=== PATIENT | female | born 1975 | race African-American/Black ===

== ENCOUNTER 2016-11-13 05:25 | Day surgery (SDC) | payer MEDICARE, MEDICAID ==
[2016-11-11 12:10] LABS: BASOPHILS 0.2 % (0.0-2.0); EOSINOPHILS 1.5 % (0-7); HEMATOCRIT 32.2 % (36.0-48.0); HEMOGLOBIN 9.9 g/dL (12-16); IMMATURE GRANULOCYTES 0.2 % (0-5); LYMPHOCYTES 36.2 % (15-50); MCH 22.4 pg (26.0-34.0); MCHC 30.7 g/dL (31.0-37.0); MCV 72.9 fL (80.0-100.0); MEAN PLATELET VOLUME 9.9 fL (7.4-10.4); MONOCYTES 7.5 % (2-11); NEUTROPHILS 54.4 % (40-80); PLATELET COUNT 280 10x3/uL (130-400); RBC 4.42 10x6/uL (4.00-5.40); RDW 14.2 % (11.5-14.5); WBC 6.6 10x3/uL (4.8-10.8)
[2016-11-11 12:29] LABS: CALC OSMOLALITY 283 mosm/kg (275-300); CALCIUM 9.2 mg/dL (8.5-10.1); CARBON DIOXIDE 32.3 mmol/L (21.0-32.0); CHLORIDE - SERUM 105 mmol/L (98-107); CREATININE - SERUM 0.8 mg/dL (0.6-1.3); POTASSIUM - SERUM 3.6 mmol/L (3.5-5.1); SODIUM 143 mmol/L (136-145); UREA NITROGEN 11 mg/dL (7-18); eGFR NON AFRICAN AMERICAN 84 mL/min (90-120)
[2016-11-11 12:36] LABS: GLUCOSE 106 mg/dL (74-106)
[~2016-11-13] VITALS: Ht 167.6 cm; Wt 96.6 kg
[~2016-11-13 05:25] MED LIST: AMOXICILLIN500 M1 PO; ASPIRIN325 MG PO; BRILINTA90 MG PO; COREG12.5 MG PO; COZAAR50 MG PO; LANTUS SOL100 UNIT/1 SQ; LISINOPRIL5 MG PO; PERCOCET 7.5/321 TA1 PO; PRILOSEC20 MG PO
[2016-11-13] MEDS ORDERED: AMBIEN10 MG PO (09:03)
[2016-11-13] MEDS ORDERED: ZESTRIL40 MG PO (09:04)
--- NOTE | 2016-11-13 09:07 | HP ---
PATIENT: AFUA SMITH MEDICAL RECORD: [id number] ACCOUNT: [id number] [facility]ATION:[facility] : 75 ADMISSION DATE: 11/13/16 HISTORY AND PHYSICAL EXAMINATION HISTORY OF PRESENT ILLNESS: This patient is a 41-year-old 5, para 4, AB 1 white female, who desires endometrial ablation to treat her severe menorrhagia. MEDICAL HISTORY: The patient denies heart disease. Positive for diabetes, heavy vaginal bleeding FAMILY HISTORY: Noncontributory. REVIEW OF SYSTEMS: Review of systems is unremarkable other than the vaginal bleeding. PHYSICAL EXAMINATION: GENERAL: Well-developed, well-nourished female in no distress. VITAL SIGNS: Weight 213 pounds, blood pressure 130/90. HEENT: Unremarkable. LUNGS: Clear. HEART: Regular rate and rhythm. ABDOMEN: Soft and nontender. PELVIC: Deferred for anesthesia. EXTREMITIES: No cyanosis, clubbing or edema. NEUROLOGIC: Grossly intact. She has undergone an endometrial biopsy with benign results and a negative Pap smear. IMPRESSIONS: Abnormal uterine bleeding, desires ablation. PLAN: Endometrial ablation. Discussed potential risks of anesthesia, infection, uterine perforation and damage to nearby organs. Answered all her questions. IMAGING: Ultrasound reveals a uterus of 7.8 cm x 10.8 cm retroverted, normal appearing ovaries. TRANSINT:[id number] Voice Confirmation ID: [id number] DOCUMENT ID: [id number] ANTONIO MUÑOZ MD at 0907 CC: [id number] DICTATION DATE: 11/11/16 1630 PANTOGRAPHER: 11/11/16 1929 [facility] [address] [id number]
[2016-11-13 09:12] VITALS: BP 175/97; Ht 167.6 cm; Wt 96.6 kg
[2016-11-13 09:25] LABS: HCG URINE NEGATIVE (NEGATIVE)
--- NOTE | 2016-11-13 11:37 | NUR ---
THE PATIENT REQUESTS NEED TO URINATE AND BED GILL OFFERED. THE PATIENT REQUESTED A QUICK RECOVERY STAY SO SHE COULD RETURN TO HER ROOM TO USE THE RESTROOM
--- NOTE | 2016-11-13 14:25 | NUR ---
1425--PT VOIDS WITHOUT DIFFICULTY, IV GORDON'Teresa DU RN
--- NOTE | 2016-11-13 14:29 | NUR ---
1430--DISCHARGE INSTRUCTIONS GIVEN, PT VERBALIZES UNDERSTANDING. PT OFF UNIT VIA BRIAN. ANA LAURA MICHAUD
--- NOTE | 2016-11-20 07:19 | OP ---
PATIENT NAME: AFUA SMITH MEDICAL RECORD: [id number] :75 [facility] DATE: SURGEON: LEA MUÑOZ MD DATE OF OPERATION: 11/13/2016 PREOPERATIVE DIAGNOSIS: Menorrhagia. POSTOPERATIVE DIAGNOSIS: Menorrhagia. PROCEDURES: Examination under anesthesia, cervical dilatation, hysteroscopy, endometrial biopsies, and NovaSure endometrial ablation. SURGEON: Lea Muñoz MD. ANESTHESIA: General. FINDINGS: An elongated cervix with benign-appearing endometrium. ESTIMATED BLOOD LOSS: Minimal. COMPLICATIONS OF SURGERY: None. OPERATIVE NOTE: The patient was taken to the OR and under adequate general anesthesia, prepped and draped in the usual manner for vaginal procedures. The anterior lip of the cervix was grasped with tenaculum. The endometrial cavity was then evaluated, was sounded to approximately 8 cm and subsequently dilatation was begun, achieved a 6 dilator, but was unable to comfortably insert the larger dilators. At that time, a hysteroscope was inserted. The findings were a markedly elongated cervix and a visible endometrium beyond the top of the cervical entrance. Hysteroscope revealed that the endometrial cavity was higher in the pelvis than originally evaluated. The hysteroscope was removed and dilatation continued without difficulty and NovaSure endometrial ablation was carried out without complication or difficulty. At the end of procedure, all instruments were removed. Specimen included endometrial biopsies taken with the hysteroscope, there was no bleeding. The patient went to the recovery area in good condition. TRANSINT:[id number] Voice Confirmation ID: [id number] DOCUMENT ID: [id number] LEA MUÑOZ MD at 0719 CC: [id number] DICTATION DATE: 11/13/16 1134 DEHAIRER: 11/13/161918 [facility] 11/13/16 [facility] [address] [place] [address]
== END 2016-11-13 13:45 | disposition home or self-care (01) ==
LOC: D.OPS 05:25 → D.PAN 10:00 → D.OPS 11:15
PROVIDERS: Obstetrics & Gynecology
DX: N92.0 Excessive and frequent menstruation with regular cycle (principal); N85.01 Benign endometrial hyperplasia

== ENCOUNTER 2016-11-18 06:59 | Day surgery (SDC) | payer MEDICARE, MEDICAID ==
[2016-11-15 09:52] LABS: HEMATOCRIT 31.2 % (36.0-48.0); HEMOGLOBIN 9.5 g/dL (12-16); MCHC 30.4 g/dL (31.0-37.0); MCV 72.4 fL (80.0-100.0); MEAN PLATELET VOLUME 10.1 fL (7.4-10.4); RBC 4.31 10x6/uL (4.00-5.40); WBC 6.8 10x3/uL (4.8-10.8)
[2016-11-15 10:01] LABS: ANION GAP 10.1 mmol/L (8-16); CALCIUM 8.3 mg/dL (8.5-10.1); CARBON DIOXIDE 30.4 mmol/L (21.0-32.0); CREATININE - SERUM 0.9 mg/dL (0.6-1.3); POTASSIUM - SERUM 3.5 mmol/L (3.5-5.1)
[~2016-11-18] VITALS: Ht 167.6 cm; Wt 97.1 kg
[~2016-11-18 06:59] MED LIST changes: +AMBIEN10 MG PO; +ZESTRIL40 MG PO
[2016-11-18] MEDS ORDERED: TRULICITY1.5 MG/0.5 SC (09:20)
[2016-11-18] MEDS ORDERED: KLONOPIN1 MG PO (09:21)
[2016-11-18] MEDS ORDERED: NEURONTIN 300300 MG (09:22)
[2016-11-18] MEDS ORDERED: NORCO 7.5/325 T1 TA1 PO (09:22)
[2016-11-18 09:26] VITALS: BP 154/93; Ht 167.6 cm; Wt 97.1 kg
--- NOTE | 2016-11-18 10:01 | NUR ---
IV ACCESS-20 GAUGE INSERTED IN LEFT AC FOR ACCESS. IVY BOO RN
[2016-11-18] MEDS ORDERED: HYDROCODONE-APA1 TAB PO (11:54)
--- NOTE | 2016-11-18 13:47 | NUR ---
1315 1 NORCO 10/325MG PO FOR COMPLAINTS OF PAIN 03/10 TO LEFT KNEE. Jarad KWAN R.N.
--- NOTE | 2016-11-18 15:04 | NUR ---
1420 DRESSED GIVEN DISCHARGE INFORMATION PACKET INCLUDING: MED REC, RX:NORCO, COMPUTER PRINTOUT FOR DISCHARGE INSTRUCTIONS FOR ARTHROSCOPY FO THE KNEE, DR. ZARATE'S POST OP INSTRUCTIONS FOR ARTHROSCOPY OF THE KNEE, EXERCISE SHEET, OP D/C INSTRUCTIONS, & RTC APPT. PT VOICED UNDERSTANDING. TO PRIVATE CAR PER WHEELCHAIR BY Dutch BOATENG R.N.. HOME WITH SON.
--- NOTE | 2016-11-18 18:57 | OP ---
PATIENT NAME: AFUA SMITH MEDICAL RECORD: [id number] :75 LOCATION:D.[facility] ADMISSION DATE: SURGEON: ANDI ZARATE MD DATE OF OPERATION: 11/18/2016 Orthopedic Surgery Operative Note PREOPERATIVE DIAGNOSIS: Loose body of the left knee. POSTOPERATIVE DIAGNOSES: Medial meniscus tear, plus patellar chondromalacia. PROCEDURE: 1. Arthroscopic partial medial meniscectomy. 2. Arthroscopic chondroplasty of the patella. SURGEON: Andi Zarate MD. ANESTHESIA: General. INTRAOPERATIVE COMPLICATIONS: None. SUMMARY OF PATHOLOGIC FINDINGS: No loose body was found corresponding to the MRI. She did have an undersurface tear of the medial meniscus as well as chondromalacia of the apex of the patella. OPERATIVE SUMMARY IN DETAIL: After obtaining the appropriate preoperative orthopedic surgery consent as well as anesthetic consultation, evaluation and clearance, the patient was brought to the operating room and placed on the operating table in supine position. After adequate general laryngeal mask was administered, tourniquet was placed about the proximal aspect of left lower extremity. Left lower extremity was then prepped and draped in routine sterile fashion. I exsanguinated and tourniquet inflated to 350 mmHg. Routine inferolateral portal was established followed by superomedial portal and inferomedial portal. Diagnostic arthroscopy revealed the above findings. Combination of resector as well as meniscotome was utilized to debride the meniscus back to stable meniscal elements. The, the patella was gently treated with chondroplasty using a resector to take down loose chondral elements. Having completed this, the knee was insufflated with 15 cc of 0.25% Marcaine with epinephrine and 40 mg of Depo-Medrol. Arthroscopy portals were closed in routine interrupted fashion using 4-0 Prolene. Sterile dressings were applied. The patient was awakened, taken to recovery in stable condition. All final needle and sponge counts were correct. TRANSINT:[id number] Voice Confirmation ID: [id number] DOCUMENT ID: [id number] TESSA KERN, ANDI PEDERSEN at 1857 CC: [id number] DICTATION DATE: 11/18/16 1152 CROP GRAIN OR LIVESTOCK FARMER: 11/18/16 1557 [facility] 11/18/[address] [place] [address]
== END 2016-11-18 14:40 | disposition home or self-care (01) ==
LOC: D.OPS 06:59 → D.PAN 12:45 → D.OPS 12:45 → D.PAN 14:30 → D.OPS 14:30
PROVIDERS: Anesthesiology
DX: S83.242A Other tear of medial meniscus, current injury, left knee, initial encounter (principal); M22.42 Chondromalacia patellae, left knee

== ENCOUNTER 2017-01-20 10:00 | Emergency (ER) | payer MEDICARE, MEDICAID ==
[2016-11-18 09:26] VITALS: BMI 34.6
[~2017-01-20 10:00] MED LIST changes: +HYDROCODONE-APA1 TAB PO; +KLONOPIN1 MG PO; +NEURONTIN 300300 MG; +NORCO 7.5/325 T1 TA1 PO; +TRULICITY1.5 MG/0.5 SC
[2017-01-20 10:48] LABS: BASOPHILS 0.2 % (0-2); HEMATOCRIT 34.5 % (36.0-48.0); HEMOGLOBIN 10.6 g/dL (12-16); LYMPHOCYTES 48.6 % (15-50); MCH 23.4 pg (26.0-34.0); MCHC 30.7 g/dL (31.0-37.0); MCV 76.2 fL (80.0-100.0); MEAN PLATELET VOLUME 9.3 fL (7.4-10.4); MONOCYTES 8.3 % (2-11); NEUTROPHILS 41.9 % (40-80); PLATELET COUNT 229 10x3/uL (130-400); RBC 4.53 10x6/uL (4.00-5.40); RDW 14.9 % (11.5-14.5); WBC 4.8 10x3/uL (4.8-10.8)
[2017-01-20 11:03] LABS: ALBUMIN 3.3 g/dL (3.4-5.0); ANION GAP 11.3 mmol/L (8-16); APPEARANCE CLOUDY (CLEAR); BILIRUBIN NEGATIVE (NEGATIVE); BILIRUBIN - TOTAL 0.34 mg/dL (0.2-1.3); CALCIUM 9.1 mg/dL (8.5-10.1); CARBON DIOXIDE 29.3 mmol/L (21.0-32.0); COLOR DK YELLOW (YELLOW); CREATININE - SERUM 0.9 mg/dL (0.6-1.3); GLUCOSE NEGATIVE (NEGATIVE); KETONE NEGATIVE (NEGATIVE); LEUKOCYTE ESTERASE TRACE (NEGATIVE); NITRITE POSITIVE (NEGATIVE); POTASSIUM - SERUM 3.6 mmol/L (3.5-5.1); PROTEIN 2+ mg/dL (NEGATIVE); PROTEIN - SERUM 7.3 g/dL (6.4-8.2); SPECIFIC GRAVITY 1.025 (1.005-1.020); UROBILINOGEN NORMAL (NORMAL)
[2017-01-20 11:04] LABS: BACTERIA MODERATE /hpf (NONE SEEN); EPITHELIAL CELLS 0-5 /hpf (0-5); RED CELLS - URINE 0-5 /hpf (0-5); WHITE CELLS - URINE 0-5 /hpf (0-5); YEAST <1+ /hpf (NONE SEEN)
[2017-01-20 11:05] LABS: CALCIUM OXALATE CRYSTALS 0-5 /hpf (NONE SEEN); MUCUS <1+ /lpf (NONE SEEN)
== END 2017-01-20 15:18 | disposition home or self-care (01) ==
LOC: D.ER 10:00
PROVIDERS: Emergency Medicine Emergency Medical Services
DX: R53.1 Weakness (principal); R05 Cough; R10.9 Unspecified abdominal pain; N39.0 Urinary tract infection, site not specified; D64.9 Anemia, unspecified; E11.9 Type 2 diabetes mellitus without complications; Z79.4 Long term (current) use of insulin; K21.9 Gastro-esophageal reflux disease without esophagitis; I10 Essential (primary) hypertension; M54.16 Radiculopathy, lumbar region; Z86.73 Personal history of transient ischemic attack (TIA), and cerebral infarction without residual deficits

== ENCOUNTER → 2017-03-25 11:51 | Outpatient (CLI) | payer MEDICARE, MEDICAID ==
[2016-11-18 09:26] VITALS: BMI 34.6
== END | disposition home or self-care (01) ==
LOC: D.MRI 11:51
DX: S83.241A Other tear of medial meniscus, current injury, right knee, initial encounter (principal)

== ENCOUNTER 2017-03-30 17:40 | Inpatient (IN) | payer MEDICARE, MEDICAID ==
[~2017-03-30] VITALS: Ht 167.6 cm; Wt 89.5 kg
[2017-03-30 18:33] LABS: BASOPHILS 0.1 % (0-2); EOSINOPHILS 0.6 % (0-7); HEMOGLOBIN 10.6 g/dL (12-16); LYMPHOCYTES 14.7 % (15-50); MCH 23.2 pg (26.0-34.0); MCHC 32.1 g/dL (31.0-37.0); MCV 72.4 fL (80.0-100.0); MONOCYTES 5.9 % (2-11); NEUTROPHILS 78.7 % (40-80); PLATELET COUNT 225 10x3/uL (130-400); RBC 4.56 10x6/uL (4.00-5.40); RDW 13.2 % (11.5-14.5)
[2017-03-30 18:58] LABS: ALBUMIN 3.2 g/dL (3.4-5.0); ALKALINE PHOSPHATASE 302 U/L (46-116); ALT (SGPT) 447 U/L (10-68); BILIRUBIN - TOTAL 2.06 mg/dL (0.2-1.3); CALC OSMOLALITY 277 mosm/kg (275-300); CALCIUM 8.5 mg/dL (8.5-10.1); CARBON DIOXIDE 28.1 mmol/L (21.0-32.0); CHLORIDE - SERUM 103 mmol/L (98-107); CREATININE - SERUM 0.7 mg/dL (0.6-1.3); GLUCOSE 121 mg/dL (74-106); POTASSIUM - SERUM 3.5 mmol/L (3.5-5.1); PROTEIN - SERUM 7.3 g/dL (6.4-8.2); SODIUM 139 mmol/L (136-145); UREA NITROGEN 10 mg/dL (7-18); eGFR NON AFRICAN AMERICAN > 90 mL/min (90-120)
[2017-03-30 18:59] LABS: AMYLASE - SERUM 215 U/L (25-115)
[2017-03-30 19:00] LABS: LIPASE 3893 U/L (73-393)
[2017-03-30 21:17] LABS: APPEARANCE CLEAR (CLEAR); BILIRUBIN 1+ (NEGATIVE); COLOR DK YELLOW (YELLOW); GLUCOSE NEGATIVE (NEGATIVE); KETONE MODERATE mg/dL (NEGATIVE); LEUKOCYTE ESTERASE NEGATIVE (NEGATIVE); NITRITE NEGATIVE (NEGATIVE); PROTEIN NEGATIVE (NEGATIVE); SPECIFIC GRAVITY 1.015 (1.005-1.020)
[2017-03-30 21:26] LABS: BACTERIA FEW /hpf (NONE SEEN); EPITHELIAL CELLS 0-5 /hpf (0-5); WHITE CELLS - URINE 0-5 /hpf (0-5)
[2017-03-31] VITALS: BP 193/102
--- NOTE | 2017-03-31 02:33 | NUR ---
6530) REC'D. FROM ER VIA WC.ON INTRODUCING TO ROOM STATES I GUESS EVERYBODY IS ON HOLIDAY HERE TOO.I CAN'T GET NAUSEA MED. INFORMED TOO SOON HAD IN ER AT 2230 AND IS EVERY SIX HOURS.NO EMESIS.
[2017-03-31 06:48] LABS: BASOPHILS 0 % (0-2); EOSINOPHILS 0.1 % (0-7); HEMATOCRIT 31.4 % (36.0-48.0); IMMATURE GRANULOCYTES 0.1 % (0-5); LYMPHOCYTES 13.8 % (15-50); MCHC 31.8 g/dL (31.0-37.0); MCV 72.2 fL (80.0-100.0); MEAN PLATELET VOLUME 10.2 fL (7.4-10.4); MONOCYTES 8.1 % (2-11); NEUTROPHILS 77.9 % (40-80); PLATELET COUNT 223 10x3/uL (130-400); RBC 4.35 10x6/uL (4.00-5.40); RDW 12.9 % (11.5-14.5); WBC 6.8 10x3/uL (4.8-10.8)
[2017-03-31 07:17] LABS: ALBUMIN 2.7 g/dL (3.4-5.0); ALKALINE PHOSPHATASE 327 U/L (46-116); ALT (SGPT) 361 U/L (10-68); BILIRUBIN - TOTAL 2.44 mg/dL (0.2-1.3); CALCIUM 7.7 mg/dL (8.5-10.1); CARBON DIOXIDE 27.2 mmol/L (21.0-32.0); CHLORIDE - SERUM 103 mmol/L (98-107); CREATININE - SERUM 0.7 mg/dL (0.6-1.3); GLUCOSE 106 mg/dL (74-106); LIPASE 147 U/L (73-393); POTASSIUM - SERUM 3.2 mmol/L (3.5-5.1); PROTEIN - SERUM 6.5 g/dL (6.4-8.2); SODIUM 138 mmol/L (136-145); eGFR NON AFRICAN AMERICAN > 90 mL/min (90-120)
[2017-03-31 07:18] LABS: AMYLASE - SERUM 49 U/L (25-115); CALC OSMOLALITY 273 mosm/kg (275-300); UREA NITROGEN 7 mg/dL (7-18)
[2017-03-31 08:00] VITALS: BP 178/88
--- NOTE | 2017-03-31 08:29 | NUR ---
AM ROUNDING- RECEIVED REPORT FROM MANAGER OF MAINTENANCE NURSE RAMON. PT IS CURRENTLY LAYING IN BED ON LEFT SIDE WITH EYES OPEN RESTING. PT IS C/O 10/10 PAIN FROM ABDOMEN. ON ROOM AIR. NO MONITOR. IV SEEN TO RIGHT FOREARM THAT IS SALINE LOCKED CURRENTLY. RESTARTED IV FLUIDS ORDERED. GAVE PT PRN DILAUDID ORDERED FOR PAIN ALONG WITH ZOFRAN DUE TO PT STATING SHE GETS NAUSEOUS. WILL CONTINUE TO MONITOR AND CONTINUE WITH PLAN OF CARE.
[2017-03-31 12:00] VITALS: BP 152/92
[2017-03-31 12:59] VITALS: BMI 31.9
--- NOTE | 2017-03-31 15:08 | NUR ---
DR. SONG PAGED TO SEE ABOUT GETTING TYLENOL FOR PT HAVING FEVER. AWAITING CALLBACK.
[2017-03-31 16:00] VITALS: BP 182/99
--- NOTE | 2017-03-31 17:54 | NUR ---
PT IS CURRENTLY LAYING IN BED ON BACK WITH EYES OPEN RESTING. PT IS C/O DISCOMFORT FROM ABDOMINAL AREA. PTS PAIN MEDICAITONS ARE NOT DUE AT THIS TIME. PT IS AWARE. WILL CONTINUE TO MONITOR.
--- NOTE | 2017-03-31 18:09 | NUR ---
2985- DR. SONG PASSING THROUGHT UNIT. I ASKED DR. SONG IF I COULD GET AN ORDER FOR PT TO HAVE TYLENOL DUE TO PT HAVING TEMP THIS AM AND AFTERNOON. DR. SONG STATES HE DIDN'T KNOW ANYTHING ABOUT THIS PT. I INFORMED DR. SONG THAT SHE WAS ADMITTED TO HIM. DR. SONG GAVE VERBAL ORDERS FOR TYLENOL 650MG. WILL PUT ORDERS IN. WILL GIVE TYLENOL IF PT HAS TEMP.
--- NOTE | 2017-03-31 19:36 | NUR ---
PT RESTING IN BED. FAMILY AT BED SIDESIDE. NS INFUSING RIGHT FOREARM @ 125. PT ASKED ABOUT ANTIBIOTIC STATES DR CAME BY AND SAID HE WAS GOING TO GIVE HER SOME. TOLD HER ONLY NEW ORDER I SEE IS ZOFRAN FOR STOMACH AND I WILL BRING IT IN SOON PHARMACY BRINGS IT UP. SHE WANTS ME TO WAIT TO GIVE HER PROTONIX TILL THE ZOFRAN COMES UP. PT DENIES ANY OTHER NEEDS. NO S/S OF DISTRESS. WILL CONTINUE TO MONITOR
[2017-03-31 20:00] VITALS: BP 179/89
--- NOTE | 2017-03-31 22:49 | NUR ---
PAIN WENT DOWN TO 5/10 FROM 10/10 STATES THAT THE ZOFRAN IS HELPING ALOT
[2017-04-01] VITALS: BP 172/73
--- NOTE | 2017-04-01 02:54 | NUR ---
PT RESTING IN BED. FAMILY X 2 IN ROOM. NO DISTRESS. CPOC.
[2017-04-01 04:00] VITALS: BP 166/85
[2017-04-01 05:28] LABS: BASOPHILS 0.2 % (0-2); EOSINOPHILS 1.4 % (0-7); HEMATOCRIT 30.3 % (36.0-48.0); HEMOGLOBIN 9.7 g/dL (12-16); LYMPHOCYTES 28.6 % (15-50); MCV 71.8 fL (80.0-100.0); MEAN PLATELET VOLUME 10.2 fL (7.4-10.4); MONOCYTES 15.4 % (2-11); NEUTROPHILS 54.4 % (40-80); PLATELET COUNT 220 10x3/uL (130-400); RBC 4.22 10x6/uL (4.00-5.40); RDW 13.1 % (11.5-14.5)
[2017-04-01 05:35] LABS: WBC 4.2 10x3/uL (4.8-10.8)
[2017-04-01 05:45] LABS: INR 1.17 (0.85-1.17); PROTIME 14.8 SECONDS (11.6-15.0)
[2017-04-01 06:13] LABS: ALBUMIN 2.6 g/dL (3.4-5.0); ALKALINE PHOSPHATASE 305 U/L (46-116); CALC OSMOLALITY 275 mosm/kg (275-300); CALCIUM 8.4 mg/dL (8.5-10.1); CARBON DIOXIDE 28.7 mmol/L (21.0-32.0); CHLORIDE - SERUM 103 mmol/L (98-107); CHOL - HDL RATIO 4.6 ratio (2.3-4.1); CHOLESTEROL, TOTAL 138 mg/dL (0-200); CREATININE - SERUM 0.6 mg/dL (0.6-1.3); GLUCOSE 80 mg/dL (74-106); HDL CHOLESTEROL 30 mg/dL (32-96); LDL CHOLESTEROL 89 mg/dL (0-100); LIPASE 51 U/L (73-393); POTASSIUM - SERUM 3.5 mmol/L (3.5-5.1); PROTEIN - SERUM 6.1 g/dL (6.4-8.2); SODIUM 140 mmol/L (136-145); TRIGLYCERIDE 95 mg/dL (30-200); UREA NITROGEN 6 mg/dL (7-18); eGFR NON AFRICAN AMERICAN > 90 mL/min (90-120)
[2017-04-01 06:18] LABS: ALT (SGPT) 251 U/L (10-68); AMYLASE - SERUM 20 U/L (25-115)
--- NOTE | 2017-04-01 07:50 | NUR ---
LYING IN BED ON RIGHT SIDE. IV RIGHT FOREARM NS @ 125. FAMILY AT BEDSIDE. OFFERS NO COMPLAINTS. PLEASANT AFFECT. DENIES ANY PAIN OR DISCOMFORT, NAD NOTED. WILL CONTINUE TO MONITOR.
--- NOTE | 2017-04-01 09:00 | NUR ---
TRANSPORTED VIA W/C BY IMAGING FOR MRI
--- NOTE | 2017-04-01 09:30 | NUR ---
RECIEVED BACK ON FLOOR BY IMAGING
--- NOTE | 2017-04-01 09:45 | NUR ---
IMAGING BACK ON FLOOR TO TRANSPORT PT TO RADIOLOGY FOR MORE IMAGING. TRANSPORTED VIA
[2017-04-01 11:00] VITALS: BP 183/99
[2017-04-01 12:43] VITALS: BP 145/93
--- NOTE | 2017-04-01 14:14 | NUR ---
ADMINISTERED 1MG OF DILAUDID FOR PAIN LEVEL OF 8/10. PT IN BED, DENIES ANY NEEDS AT THIS TIME. CALL LIGHT IN REACH, NAD NOTED, FAMILY AT BEDSIDE, WILL CONTINUE TO MONITOR.
--- NOTE | 2017-04-01 16:01 | NUR ---
1MG OF DILAUDID GIVEN FOR PAIN LEVEL OF 8/10. PT IN BED, WATCHING TV, DENIES ANY NEEDS AT THIS TIME. CALL LIGHT IN REACH, NAD NOTED, WILL CONTINUE TO MONITOR.
[2017-04-01 16:50] VITALS: BP 200/102
--- NOTE | 2017-04-01 17:19 | NUR ---
DILAUDID INDUSTRIAL ROOF PLUMBER, STARTED AT THIS TIME 0.2MG Q10MIN NO LOCKOUT. TUBING PRIMED WITH 2CC OF MED. CONSENT SIGNED AND PLACED ON CHART AT THIS TIME. PT IN BED, DENIES ANY NEEDS AT THIS TIME. CALL LIGHT IN REACH, NAD NOTED, WILL CONTINUE TO MONITOR.
--- NOTE | 2017-04-01 19:19 | NUR ---
RECEIVED ORDER FROM DR. SONG TO GIVE 0.1MG OF CLONODINE ONE TIME DOSE.
--- NOTE | 2017-04-01 19:26 | NUR ---
D/C RT FA IV, DUE TO INFILTRATION, TIP INTACT. ADMINSITERED 0.1MG OF CLONODIN FOR HIGH BP. DEWEY MICHAUD AT BEDSIDE TRYING TO START IV AT THIS TIME.
--- NOTE | 2017-04-01 19:28 | NUR ---
PT LYING IN BED, DEWEY MICHAUD ATTEMPTING IV RESITE. PT DENIES ANY NEEDS. CONTINUE TO MONITOR CLOSELY.
[2017-04-01 20:00] VITALS: BP 147/97
--- NOTE | 2017-04-01 20:13 | NUR ---
FLUIDS RESTARTED ORDERED, NS, PANTOPRAZOLE GTT AND ASSOCIATE FINANCIAL REPRESENTATIVE DILAUDID. PT DENIES ANY NEEDS. CONTINUE TO MONITOR CLOSELY.
[2017-04-02] VITALS (7 sets, daily range): BP systolic 114–193; BP diastolic 75–106; Ht 167.6 cm; Wt 89.5 kg
--- NOTE | 2017-04-02 00:31 | NUR ---
PT SITTING ON SIDE OF BED, AWAKE, ALERT, ORIENTED, COLORING. PT DENIES ANY NEEDS, IS CURRENTLY NPO. CONTINUE TO MONITOR CLOSELY.
--- NOTE | 2017-04-02 04:33 | NUR ---
PT DENIES ANY QUESTIONS ABOUT UPCOMING PROCEDURE, STATES HER PAIN IS POORLY CONTROLLED WITH THE JUNIOR ASSISTANT MANAGER DILAUDID AT THIS TIME, STATING SHE HAS NOT BEEN ABLE TO REST, AND IS STILL IN GREAT PAIN. THERE IS NO BOLUS PRN ORDERED AT THIS TIME. PT IS ALSO ASKING FOR HER ANXIETY MEDICINE THAT SHE TAKES AT HOME. AT THIS POINT, NO HOME MEDICATIONS HAVE BEEN RESTARTED AND PT IS CURRENTLY NPO. WILL CONTINUE TO MONITOR PATIENT CLOSELY. FAMILY AT BEDSIDE.
--- NOTE | 2017-04-02 05:10 | NUR ---
PAGED DR. SONG FOR FURTHER ORDERS. PT IS C/O INCREASED PAIN AND CONCERNED ABOUT HER B/P CONTINUING TO RISE.
--- NOTE | 2017-04-02 05:25 | NUR ---
DR. SONG CALLED BACK WITH ORDERS FOR CLONIDINE 0.2 MG PO Q 3 HOURS PRN SYSTOLIC B/P > 170 AND ADDED A BOLUS DOSE TO SENIOR DB2 SYSTEMS PROGRAMMER DILAUDID OF 0.4MG Q 2 HOURS PRN PAIN > 5. BOLUS DOSE GIVEN, WAITING FOR AGRICULTURAL EQUIPMENT SALES ENGINEER TAYLOR TO PULL CLONIDINE. CONTINUE TO MONITOR CLOSELY.
--- NOTE | 2017-04-02 06:02 | NUR ---
PT STATES SHE IS ALSO NAUSEATED EVEN WITH THE ZOFRAN GTT, STATING IT HAS NOT HELPED AT ALL. PT IS WIPING HERSELF DOWN WITH THE HIBICLENS WIPES IN PREPARATION FOR UPCOMING SURGERY. PT DENIES ANY NEEDS. PRN CLONIDINE GIVEN PO ORDERED BY DR. SONG WITH A SMALL SIP OF H2O.
[2017-04-02 06:05] LABS: BASOPHILS 0.2 % (0-2); EOSINOPHILS 2.2 % (0-7); HEMATOCRIT 34.8 % (36.0-48.0); HEMOGLOBIN 11.2 g/dL (12-16); IMMATURE GRANULOCYTES 0.2 % (0-5); LYMPHOCYTES 42.3 % (15-50); MCH 23.2 pg (26.0-34.0); MCHC 32.2 g/dL (31.0-37.0); MCV 72.2 fL (80.0-100.0); MEAN PLATELET VOLUME 10.4 fL (7.4-10.4); MONOCYTES 9.7 % (2-11); NEUTROPHILS 45.4 % (40-80); RBC 4.82 10x6/uL (4.00-5.40); RDW 13.3 % (11.5-14.5); WBC 5.1 10x3/uL (4.8-10.8)
[2017-04-02 06:14] LABS: PLATELET COUNT 267 10x3/uL (130-400)
--- NOTE | 2017-04-02 06:26 | NUR ---
SPOKE WITH TONI IN SURGERY R/T PRE-OP ORDERS THAT WERE PLACED FOR YESTERDAY 04/01/17 THAT WERE NEVER DONE, PT DID NOT GO TO SURGERY. I DID RESTART THEM DIRECTED PER TONI RN VIA DR. FAJARDO.
--- NOTE | 2017-04-02 06:27 | NUR ---
PT ASSURES ME THAT SHE HAS NO JEWELRY ON PRE-OP.
[2017-04-02 06:38] LABS: ALBUMIN 3.2 g/dL (3.4-5.0); ALKALINE PHOSPHATASE 352 U/L (46-116); ALT (SGPT) 218 U/L (10-68); BILIRUBIN - TOTAL 1.18 mg/dL (0.2-1.3); CALCIUM 9.1 mg/dL (8.5-10.1); CARBON DIOXIDE 31.2 mmol/L (21.0-32.0); CHLORIDE - SERUM 103 mmol/L (98-107); CREATININE - SERUM 0.7 mg/dL (0.6-1.3); GLUCOSE 98 mg/dL (74-106); LIPASE 84 U/L (73-393); PHOSPHOROUS 3.3 mg/dL (2.5-4.9); POTASSIUM - SERUM 3.2 mmol/L (3.5-5.1); SODIUM 142 mmol/L (136-145); eGFR NON AFRICAN AMERICAN > 90 mL/min (90-120)
[2017-04-02 06:40] LABS: AMYLASE - SERUM 26 U/L (25-115); CALC OSMOLALITY 280 mosm/kg (275-300); PROTEIN - SERUM 7.7 g/dL (6.4-8.2); TROPONIN-I < 0.017 ng/mL (0.000-0.060); UREA NITROGEN 8 mg/dL (7-18)
--- NOTE | 2017-04-02 06:44 | NUR ---
PRE-OP MEDS COMPLETE
--- NOTE | 2017-04-02 07:35 | NUR ---
TAKEN TO PROCEDURE VIA BED. CONTINUE PLAN OF CARE AND SAFETY PRECAUTIONS.
[2017-04-02 10:19] LABS: HEPATITIS C ANTIBODY <0.1 (0.0-0.9)
--- NOTE | 2017-04-02 10:41 | NUR ---
ARRIVE BACK TO ROOM VIA BED FROM PROCEDURE. ABDOMINAL INCISIONS CLEAN DRY INTACT. SEDATED AROUSES TO VOICE. BP-114/75, P-82, T-97.5, R-16, O2-97% RA. FAMILY AT BEDSIDE. CONTINUE PLAN OF CARE. BED LOCKED AND LOW. CALL LIGHT IN REACH. IV SITED TO RT AC DURING PROCEDURE. RESTART FLUIDS AND SUPERVISOR INSPECTION ORDERED. TWO SIDERAILS UP.
--- NOTE | 2017-04-02 13:31 | NUR ---
Nutrition follow-up: Pt s/p olga stewart today; diet advance to regular. Labs reviewed Will provide food choices with selective menus and honor food preferences. RDN following.
--- NOTE | 2017-04-02 13:48 | NUR ---
ALERT AND ORIENTED X4. YELLING OUT IN PAIN. CALL . TYLENOL 1000mg PO SCHEDULED Q12H AND ADVIL 200mg PO SCHEDULED Q12H VIA TELEPHONE. ATIVAN 1mg IV PRN ORDERED, DILAUDID 1mg BOLUS IV ORDERED VIA TELEPHONE PER . ADMINISTER TYLENOL 1000mg AND 1mg DILAUDID BOLUS. CONTINUE PLAN OF CARE. BED LOCKED AND LOW. CALL LIGHT IN REACH. TWO SIDERAILS UP. BP 188/107, P-84. PRN CLONIDINE ADMINISTERED PER ORDER FOR HTN.
--- NOTE | 2017-04-02 16:50 | NUR ---
ALERT AND ORIENTED X4. UP AMBULATING IN [place] ACCOMPANIED BY FAMILY. GAIT STEADY. EXPRESSES FEELING SOME RELIEF. DENIES ANY NEEDS. CONTINUE PLAN OF CARE AND SAFETY PRECAUTIONS.
--- NOTE | 2017-04-02 19:49 | NUR ---
PATIENT RATED PAIN A 8/10. PATIENT HAS THE FINANCE SPECIALIST BUTTON IN REACH. BROUGHT PATIENT AN ICE PACK AND PLACED IT TO INCISION SITE WHERE PATIENT IS VERBALIZING PAIN. PATIENT IS NOT EXPRESSING PAIN, NO MOANING, OR FACIAL GRIMMACING. SHE IS LAYING IN BED WATCHING TV CALM. FAMILY IN RECLINER SLEEPING. BED IN LOWEST POSITION, CALL LIGHT IN REACH. BED RAILS UP X'S 2. PATIENT REFUSED SCDS.
--- NOTE | 2017-04-03 01:38 | NUR ---
PATIENT AMBULATING IN THE [place] PUSHING IV POLE. GAIT STEADY. NO SIGNS OF DISTRESS NOTED. AMBULATING INDEPENDENTLY WITH FAMILY MEMBER WALKING BESIDE HER.
--- NOTE | 2017-04-03 02:00 | NUR ---
PATIENT SITTING UP IN BED EATING CRACKERS.
--- NOTE | 2017-04-03 02:30 | NUR ---
PATIENT'S IV INFUSIONS ARE GOING THROUGH IV TO RIGHT AC, LEFT WRIST IV IS SALINE LOCKED PATIENT REQUESTED HER IV INFUSIONS GO TO THE LEFT WRIST IV. FLUSHED IV TO LEFT WRIST, IT FLUSHED READILY, NO LEAKING SEEN, PATIENT DENIES TENDERNESS. HOOKED IV INFUSIONS TO LEFT WRIST IV, SALINE LOCKED RIGHT AC IV.
--- NOTE | 2017-04-03 04:21 | NUR ---
PATIENT RESTING QUIETLY WITH EYES CLOSED NO SIGNS OF DISTRESS NOTED.
[2017-04-03 06:10] VITALS: BP 135/71
--- NOTE | 2017-04-03 07:50 | NUR ---
AM ROUNDS - PT IS AWAKE IN BED. STOPPED KENNEL HAND PUMP AT 0735. PT C/O PAIN TO ABD AT 0745. MEDICATION GIVEN FOR PAIN. IV TO LEFT WRIST. FAMILY AT BEDSIDE. PT STATES SHE IS READY TO GO HOME. INFORMED PT THAT WE ARE WAITING ON THE DOCTORS OFFICE TO OPEN TO MAKE F/U APPT BEFORE D/C. WILL CONTINUE TO MONITOR
[2017-04-03] MEDS ORDERED: PHENERGAN25 M1 PO ×2 (08:01)
--- NOTE | 2017-04-03 08:03 | NUR ---
WRITTEN SCRIPT FOR NORCO 10 MG #25 WITH NO REFILLS AND PHENERGAN 25 MG #20 WITH NO REFILLS GIVEN TO PATIENT.
--- NOTE | 2017-04-03 08:20 | NUR ---
Patient Name: AFUA SMITH Admission Status: ER Accout number: [id number] Admission Date: 03-30-2017 : 1975 Admission Diagnosis:RIGHT UPPER QUADRANT PAIN Attending: OANH Current LOS: 4 Anticipated DC Date: 04-03-2017 Planned Disposition: Home Primary Insurance: [employer] ADV Discharge Planning Comments: CM MET WITH PATIENT TO DISCUSS DISCHARGE PLANNING/NEEDS. PATIENT 3 CHILDREN ARE AT BEDSIDE, ONE IS EATING HER BREAKFAST. SHE IS MORE WORRIED ABOUT GETTING HER IV OUT SO SHE CAN SHOWER AND GET OUT OF HERE THAN COMPLETING THIS INTERVIEW. AFTER STATING SEVERAL TIMES THAT THIS WILL TAKE LESS THAN 5 MINUTES, IF I CAN KEEP HER FOCUSED, AND THEN I WOULD BE GLAD TO LOCATE HER NURSE FOR HER, SHE CALMED, AND THE INTERVIEW WAS COMPLETED. SHE STATED THAT SHE LIVES AT HOME WITH HER FAMILY. SHE DENIES USING OR NEEDING ANY COMMUNITY RESOURCES. EVEN THOUGH IT WAS NOT ADMITTED TO, SHE IS EMPLYING THAT SHE IS DRIVING HERSELF HOME. THIS HAS BEEN DISCOURAGED, EXPLAINING THAT THE DOCTOR USUALLY ORDERS NO DRIVING WHILE ON PAIN MEDICATIONS. EXPLAINED THAT SHE COULD BE IMPAIRED EVEN THOUGH SHE FEELS FINE. SHE JUST SHOOK HER HEAD AND GAVE ME A WEIRD SMILE. AT THIS TIME SHE DENIES ANY NEEDS. I HAVE MADE MYSELF AVAILABLE IN CASE SHE CHANGES HER MIND. Lining Machine Operator: Rosafartun Root Is the patient Alert and Oriented? Yes * How many steps to enter\exit or inside your home? 4, RAIL * PCP DR VASQUEZ * Pharmacy [facility] [address] * Preadmission Environment Home with Family * ADLs Independent * Equipment None * List name and contact numbers for known caregivers / representatives who currently or will assist patient after discharge: CLEMENTINA HAWKINS, BROTHER, * Community resources currently utilized None * Additional services required to return to the preadmission environment? No * Can the patient safely return to the preadmission environment? Yes * Has this patient been hospitalized within the prior 30 days at any hospital? No
--- NOTE | 2017-04-03 08:32 | NUR ---
PT HAS BEEN VERY ANXIOUS TO BE D/C FROM HOSPITAL. WENT IN TO TO D/C AND PT IS IN THE SHOWER. WILL CONTINUE TO MONITOR
--- NOTE | 2017-04-03 09:05 | NUR ---
D/C - WRITTEN AND VERBAL D/C INSTRUCTIONS GIVEN TO PT. WENT TO TAKE PT'S IV OUT AND SHE INFORMS ME THAT SHE ALREADY TOOK IT OUT WHEN SHE WAS IN THE SHOWER AND THREW IT AWAY IN THE TRASH. I ASKED IF THE CATH TIP WAS INTACT AND PT STATES THAT SHE DOES NOT KNOW. IV IS NO LONGER IN LEFT WRIST. INSTRUCTED PT TO PLEASE USE THE CALL WHYTE WHEN SHE IS READY TO LEAVE AND WE WILL CALL FOR A WHEELCHAIR. WILL CONTINUE TO MONITOR.
--- NOTE | 2017-04-03 09:14 | NUR ---
PT WALKED OUT AND REFUSSED A WHEELCHAIR.
== END 2017-04-03 10:36 | disposition home or self-care (01) | DRG 419 ==
LOC: D.ER 17:40 → D.M2 22:54
PROVIDERS: Family Medicine; Internal Medicine Gastroenterology; ADMIT Surgery
DX: K80.10 Calculus of gallbladder with chronic cholecystitis without obstruction (principal); E11.9 Type 2 diabetes mellitus without complications; I10 Essential (primary) hypertension; F41.9 Anxiety disorder, unspecified; R16.0 Hepatomegaly, not elsewhere classified; G89.18 Other acute postprocedural pain

== ENCOUNTER 2017-04-03 19:41 | Emergency (ER) | payer MEDICARE, MEDICAID ==
[2017-04-02 04:29] VITALS: BMI 31.1
[~2017-04-03 19:41] MED LIST changes: +PHENERGAN25 M1 PO
== END 2017-04-03 21:33 | disposition home or self-care (01) ==
LOC: D.ER 19:41
DX: G89.18 Other acute postprocedural pain (principal); E11.9 Type 2 diabetes mellitus without complications; Z79.4 Long term (current) use of insulin; K21.9 Gastro-esophageal reflux disease without esophagitis; I10 Essential (primary) hypertension; R10.9 Unspecified abdominal pain

== ENCOUNTER 2017-04-05 21:01 | Emergency (ER) | payer MEDICARE, MEDICAID ==
[2017-04-02 04:29] VITALS: BMI 31.1
[2017-04-05 21:26] LABS: BASOPHILS 0.1 % (0-2); EOSINOPHILS 0.4 % (0-7); HEMATOCRIT 26.6 % (36.0-48.0); HEMOGLOBIN 8.6 g/dL (12-16); IMMATURE GRANULOCYTES 0.2 % (0-5); MCH 22.8 pg (26.0-34.0); MCHC 32.3 g/dL (31.0-37.0); MCV 70.4 fL (80.0-100.0); MEAN PLATELET VOLUME 10.3 fL (7.4-10.4); MONOCYTES 8.4 % (2-11); NEUTROPHILS 74.9 % (40-80); PLATELET COUNT 300 10x3/uL (130-400); RBC 3.78 10x6/uL (4.00-5.40); RDW 13.3 % (11.5-14.5); WBC 11.6 10x3/uL (4.8-10.8)
[2017-04-05 21:39] LABS: ALBUMIN 2.4 g/dL (3.4-5.0); ALKALINE PHOSPHATASE 193 U/L (46-116); ALT (SGPT) 74 U/L (10-68); AMYLASE - SERUM 13 U/L (25-115); BILIRUBIN - TOTAL 0.72 mg/dL (0.2-1.3); CALC OSMOLALITY 284 mosm/kg (275-300); CALCIUM 8.9 mg/dL (8.5-10.1); CARBON DIOXIDE 34.4 mmol/L (21.0-32.0); CHLORIDE - SERUM 102 mmol/L (98-107); CREATININE - SERUM 0.8 mg/dL (0.6-1.3); LIPASE 50 U/L (73-393); POTASSIUM - SERUM 3.3 mmol/L (3.5-5.1); PROTEIN - SERUM 6.9 g/dL (6.4-8.2); SODIUM 140 mmol/L (136-145); UREA NITROGEN 22 mg/dL (7-18); eGFR NON AFRICAN AMERICAN 84 mL/min (90-120)
[2017-04-05 21:40] LABS: GLUCOSE 146 mg/dL (74-106)
== END 2017-04-06 00:36 | disposition home or self-care (01) ==
LOC: D.ER 21:01
PROVIDERS: Emergency Medicine
DX: G89.18 Other acute postprocedural pain (principal); E86.0 Dehydration; E11.9 Type 2 diabetes mellitus without complications; Z79.4 Long term (current) use of insulin; K21.9 Gastro-esophageal reflux disease without esophagitis; I10 Essential (primary) hypertension; R11.2 Nausea with vomiting, unspecified; R10.9 Unspecified abdominal pain

== ENCOUNTER 2017-04-06 09:09 | Emergency (ER) | payer MEDICARE, MEDICAID ==
[2017-04-02 04:29] VITALS: BMI 31.1
== END 2017-04-06 11:45 | disposition home or self-care (01) ==
LOC: D.ER 09:09
DX: G89.18 Other acute postprocedural pain (principal); E11.9 Type 2 diabetes mellitus without complications; Z79.4 Long term (current) use of insulin

== ENCOUNTER 2017-04-08 00:02 | Inpatient (IN) | payer MEDICARE, MEDICAID ==
[~2017-04-08] VITALS: Ht 167.6 cm; Wt 88.9 kg
--- NOTE | ~2017-04-08 | HEMODYNAMI ---
PATIENT:AFUA SMITH MEDICAL RECORD: [id number] : 75 LOCATION:D[id number] ADMISSION DATE: 04/09/17 Generatedon:04/14/201710:53 Patient name: AFUA SMITH Patient #: [id number] SSN: : [id number] Date of study: 04/14/2017 Page: Of Hemodynamic Procedure Report Patient Data Patient Demographics Procedure consent was obtained First Name: AFUA Gender: Female Last Name: SARAH : 1975 Middle Initial: L Age: 41 year(s) Patient #: [id number] Race: Black Additional ID: [id number] Contact details [address]: [address] [place] [address] [address] State: [place] City: [place] Zip code: [address] Admission Admission Data Admission Date: 04/09/2017 Admission Time: 1:37 Room #: [id number] Procedure Procedure Types Cath Procedure Peripheral Cath Diagnostic Procedure Abscess Abscess Drain Injection Procedure Description Procedure Date Procedure Date: 04/14/2017 Procedure Start Time: 10:25 Procedure Staff Name Function Gonzalez Krause MD Performing Physician Jb Fermin RT Scrub Jb Fermin RT Monitor Lorenza Mitchell RN Nurse Procedure Data Cath Procedure Fluoroscopy Diagnostic fluoroscopy Total fluoroscopy Time: 0.6 time: 0.6 min min Diagnostic fluoroscopy Total fluoroscopy dose: 22 dose: 22 mGy mGy Contrast Material Contrast Material Type Amount (ml) Isovue 300 5 Procedure Medications Medication Administration Route Dosage Fentanyl I.V. 50 mcg Versed I.V. 1 mg Hemodynamics Rest Heart Rate: 95 (bpm) Snapshots Pre Cath Intra NCS Post Cath Vital Signs Time Heart Resp SPO2 NIBP (mmHg) Rhythm Pain Sedation Rate (ipm) (%) Status Level (bpm) 10:02:11 94 16 96 159/106(135) NSR 0 (11) 10(A) , No pain 10:06:33 94 13 96 173/108(151) NSR 0 (11) 10(A) , No pain 10:10:57 91 14 96 173/110(145) NSR 0 (11) 10(A) , No pain 10:15:23 89 15 96 175/109(150) NSR 0 (11) 10(A) , No pain 10:19:50 90 14 96 177/106(148) NSR 0 (11) 10(A) , No pain 10:24:12 89 13 97 166/108(144) NSR 0 (11) 10(A) , No pain 10:28:36 90 15 96 174/110(147) NSR 0 (11) 10(A) , No pain 10:32:56 90 14 96 159/105(138) NSR 0 (11) 10(A) , No pain 10:37:18 89 19 96 165/110(141) NSR 0 (11) 10(A) , No pain 10:41:40 88 19 96 170/112(149) NSR 0 (11) 10(A) , No pain 10:46:39 Measuring NSR 0 (11) 10(A) , No pain 10:47:12 No Cuff NSR 0 (11) 10(A) , No pain 10:51:00 No Cuff NSR 0 (11) 10(A) , No pain Medications Time Medication Route Dose Verified Delivered Reason Notes Effectivene ss by by 10:25:34 Versed I.V. 1 mg Lorenza Lorenza for Stephen Stephen sedation RN RN 10:25:41 Fentanyl I.V. 50 Lorenza Lorenza for mcg Stephen Stephen sedation RN fourth officer Log Time Note 9:52:37 Jb Fermin RT (R) (CV) sent for patient. Start room use. 9:52:45 Time tracking: Regular hours 9:52:53 Plan of Care:Hemodynamics will remain stable., Cardiac rhythm will remain stable., Comfort level will be maintained., Respiratory function will remain adequate., Patient/ family verbilizes understanding of procedure., Procedure tolerated without complication., Recovers from procedure without complications.. 9:53:08 Patient received from Med/Surg to IR Alert and oriented. Tansferred to table in Supine position. 9:53:09 Correct patient and procedure confirmed by team. 9:53:11 Signed procedure consent form obtained from patient. 9:53:11 ECG and BP/O2 sat monitors applied to patient. 9:53:12 - 9:53:13 Full Disclosure recording started 9:53:17 H&P Date Dictated: 04/14/2017 Within 30 days and on chart.. 9:53:18 Pre-procedure instructions explained to patient. 9:53:18 Pre-op teaching completed and patient verbalized understanding. 9:53:20 Family unavailable. 9:53:22 Patient NPO since Midnight. 9:53:27 Use device set IR Diagnostic 9:53:29 Sterile Angiographic Pack opened to sterile field. 9:53:29 Bag Decanter opened to sterile field. 10:00:22 Is the patient allergic to Iodine/contrast media? No. 10:00:24 Is patient on blood thinner?No 10:00:25 Patient diabetic? Yes. 10:00:27 If diabetic: On Metformin? No 10:00:28 - 10:00:29 ----Pre-sedation anethsthesia assessment.---- 10:00:31 Previous problem with sedation/anesthesia? No ? 10:00:33 Snore? Yes 10:00:35 Sleep apnea? No 10:00:36 Deviated septum? No 10:00:38 Opens mouth fully? No 10:00:42 Sticks out tongue? Yes 10:00:51 Airway obstruction? No ? 10:00:53 Dentures? No ? 10:00:56 Vital chart was started 10:00:57 Baseline sample Acquired. 10:01:02 Rhythm: sinus rhythm 10:01:14 Patient pain scale 0/10 no pain. 10:01:20 Alarms reviewed by Ashlie Gonsalez 10:01:21 Sharps counted by scrub and verified by R.N. 10:01:29 Left abdomen area was prepped with chlora-prep and draped in sterile fashion 10::55 Physician arrived 10::55 --------ALL STOP TIME OUT------ 10::58 Final Timeout: patient, procedure, and site verified with staff and physician. All members of the team are in agreement. 10:24:09 Lumbar site verified by team. 10:24:17 Physical assessment completed. ASA score P 3 - A patient with severe systemic disease as per Gonzalez Krause MD. 10:24:21 Sedation plan: IV Moderate Sedation Versed, Fentanyl 10:25:31 Procedure started. 10:25:34 Versed 1 mg I.V. was administered by Lorenza Mitchell RN; for sedation; 10::41 Fentanyl 50 mcg I.V. was administered by Lorenza Mitchell RN; for sedation; 10::55 Local anesthetic to Lumbar area with Lidocaine 1% by Gonzalez Krause MD.INITIAL ACCESS ONLY 10:31:30 Cook ALBERTO .035 15CM guide wire opened to sterile field. 10:31:59 tube removed over alberto wire 10:32:29 Procedure ended.(Physican Out) 10:33:12 Fluoroscopy time 00.60 minutes. 10:33:16 Fluoroscopy dose: 22 mGy 10:33:16 Flurop Dose total: 22 10:33:23 Contrast amount:Isovue 300 5ml. 10:33:25 Sharps counted by scrub and verified by R.N. 10:33:26 Insertion/operative site no bleeding no hematoma. 10:33:37 Post-op/insertion site Left Lumbar area dressed using a 4 x 4 and Tegaderm. 10:33:43 Post Lumbar area:stable 10:33:50 Post-procedure physical assessment completed. ASA score P 3 - A patient with severe systemic disease as per Gonzalez Krause MD. 10:33:53 Post procedure rhythm: unchanged. 10:34:02 Procedure and supply charges have been captured, reviewed, submitted an d are correct. 10:34:04 Post procedure instruction explained to patient.Patient verbalizes understanding. 10:53:22 Report given to Med/Surg. 10:53:28 Patient transfered to Med/Surg with Bed. 10:53:46 Vital chart was stopped Device Usage Item Name Manufacture Quantity Catalog Hospital Part Current Minimal Lot# / Number Charge Number Stock Stock Serial# Code Sterile [place] 1 [id number] 5 Angiographic Health Pack Bag Decanter [employer] 1 [id number] 5 [employer] Cook ALBERTO [facility] 1 [id number] 5 .035 15CM guide wire Signature Audit [place] Stage Time Signature Unsigned Intra-Procedure 04/14/2017 Jb 10:53:44 AM Zander RT (R) (CV) Signatures Monitor : Jb Signature : Zander RT Date : Time : [address] [address]
--- NOTE | 2017-04-09 01:30 | NUR ---
PT TO ROOM 2240 VIA STRETCHER FROM [facility] IN [facility]. ASSESSMENT PER ADMIT PACK.ORIENTATION TO ROOM AFTER PT SHOWERED.CALL LIGHT IN REACH. FAMILY HAS LEFT TO GO HOME.
[2017-04-09 02:29] VITALS: BP 152/90; BMI 31.7
--- NOTE | 2017-04-09 06:39 | NUR ---
REMAINS WITHOUT NEEDS.NPO FOR SURGERY TODAY.CONT PLAN OF CARE
--- NOTE | 2017-04-09 07:10 | NUR ---
PT REC'D FROM JASWANT AGUILAR. RESTING IN BED WITH SON AT BEDSIDE. AAOX4. COMPLAINING OF 10/10 ABD PAIN. REMINDED PT OF BLOOD BANK CALENDAR CONTROL CLERK AND HOW TO USE IT. PRESSED BUTTON FOR PT. WILL REASSESS. PT ALSO COMPLAINING OF IT BURNING WHEN SHE USES THE BATHROOM. TOLD HER SHE COULD POSSIBLY HAVE A UTI. INSTRUCTED PT ON BEING SURE TO WIPE FRONT TO BACK. BOWEL SOUNDS HYPOACTIVE X4 QUADS. ALSO COMPLAINING OF NAUSEA. WILL ADMINISTER ANTIEMETIC IF PRESCRIBED. PAIN WORSENES ON PALPATION. BED LOW, CALL LIGHT IN REACH, DENIES NEEDS. CPOC.
[2017-04-09 09:00] LABS: BASOPHILS 0.1 % (0-2); EOSINOPHILS 0.4 % (0-7); HEMATOCRIT 23.4 % (36.0-48.0); HEMOGLOBIN 7.6 g/dL (12-16); IMMATURE GRANULOCYTES 1.3 % (0-5); LYMPHOCYTES 19.5 % (15-50); MCH 22.8 pg (26.0-34.0); MCHC 32.5 g/dL (31.0-37.0); MCV 70.3 fL (80.0-100.0); MEAN PLATELET VOLUME 9.3 fL (7.4-10.4); MONOCYTES 9.7 % (2-11); RBC 3.33 10x6/uL (4.00-5.40); RDW 13.7 % (11.5-14.5); WBC 13.5 10x3/uL (4.8-10.8)
[2017-04-09 09:02] LABS: PLATELET COUNT 409 10x3/uL (130-400)
[2017-04-09 09:17] LABS: ALBUMIN 1.9 g/dL (3.4-5.0); ALKALINE PHOSPHATASE 137 U/L (46-116); ALT (SGPT) 32 U/L (10-68); BILIRUBIN - TOTAL 0.49 mg/dL (0.2-1.3); CALC OSMOLALITY 281 mosm/kg (275-300); CHLORIDE - SERUM 102 mmol/L (98-107); CREATININE - SERUM 0.5 mg/dL (0.6-1.3); GLUCOSE 117 mg/dL (74-106); POTASSIUM - SERUM 3.3 mmol/L (3.5-5.1); PROTEIN - SERUM 6.2 g/dL (6.4-8.2); SODIUM 142 mmol/L (136-145); UREA NITROGEN 7 mg/dL (7-18); eGFR NON AFRICAN AMERICAN > 90 mL/min (90-120)
[2017-04-09 09:23] LABS: APTT 31.7 SECONDS (22.8-39.4); INR 1.08 (0.85-1.17); PROTIME 13.9 SECONDS (11.6-15.0)
[2017-04-09 09:41] VITALS: BP 189/99
--- NOTE | 2017-04-09 11:17 | NUR ---
Patient Name: AFUA SMITH Admission Status: ER Accout number: [id number] Admission Date: 04-09-2017 : 1975 Admission Diagnosis: Attending: OANH Current LOS: 1 Anticipated DC Date: 04-14-2017 Planned Disposition: Home Primary Insurance: [employer] ADV Discharge Planning Comments: CM MET WITH PATIENT REGARDING HER D/C PLAN AND NEEDS. PATIENT STATED HER SON (ADALI) LIVES WITH HER AND HE WILL DRIVE HER HOME AT DISCHARGE. PATIENT STATED SHE IS INDEPENDENT WITH HER CARE AND HAS A GLUCOMETER AT HOME AND CHECKS DAILY. PATIENTS PCP IS DR. VASQUEZ IN [place] AND USES [facility] [address] FOR HER PHARMACY. PATIENT IS REFUSING HOME HEALTH AT THIS TIME. CM WILL CONTINUE TO FOLLOW PATIENT WITH D/C NEEDS AND PLANS. PCP DR. PEDRO HUNT [address] [phone] ADALI ([place]) [phone] Body Maker Machine Setter: Jyoti Adame Is the patient Alert and Oriented? Yes 0 * How many steps to enter\exit or inside your home? 4 W/RAILS 0 * PCP DR. VASQUEZ ([place]) 0 * Pharmacy [facility] [address] 0 * Preadmission Environment Home with Family 0 * ADLs Independent 0 * Equipment Glucometer 0 * List name and contact numbers for known caregivers / representatives who currently or will assist patient after discharge: ADALI SEN ([place]) [phone] 0 * Community resources currently utilized None 0 * Additional services required to return to the preadmission environment? Yes 0 * Can the patient safely return to the preadmission environment? Yes 0 * Has this patient been hospitalized within the prior 30 days at any hospital? No 0 Grand Total: 0
--- NOTE | 2017-04-09 11:34 | NUR ---
DR. SONG PAGED REGARDING LOW HGB AND HCT. NEW ORDERS REC'D/
--- NOTE | 2017-04-09 11:35 | NUR ---
CONSENTS OBTAINED AT THIS TIME. EXPLAINED TO PT THAT HER BLOOD COUNTS ARE LOW AND SHE WILL BE RECEIVING BLOOD BEFORE GOING TO HER PROCEDURE. NO QUESTIONS OR CONCERNS VOICED AT THIS TIME. PRN SUPP. ADMINISTERED PER PT COMPLAINTS OF RECTAL PAIN. FAMILY AT BEDSIDE. BED LOW, CALL LIGHT IN REACH, DENIES NEEDS. CPOC.
--- NOTE | 2017-04-09 11:43 | NUR ---
PT AOX4 RESP EVEN AND NONLABORED PT DENIES NEEDS AT THIS TIME IV TO LEFT FOREARM PATENT AND INTACT AT THIS TIME SRX2 BED AT LOWEST SETTING CALL LIGHT WITHIN REACH WILL CONTINUE TO MONITOR PT HERE FOR INTRA ABDOMINAL FLUID COLLECTION FOR THIS VISIT
[2017-04-09 12:55] VITALS: BP 187/103
--- NOTE | 2017-04-09 14:58 | NUR ---
PT COMPLAINING OF IV SITE HURTING. PIV SITE TO L FOREARM SWOLLEN. UNABLE TO FLUSH. REMOVED WITH CATHETER INTACT. PRESSURE AND DRESSING APPLIED. RESITED TO POSTERIOR L FOREARM. X1 ATTEMPT WITH 20 GUAGE CATHETER. RECONNECTED TO IVF. BED LOW, CALL LIGHT IN REACH, DENIES NEEDS. CPOC.
--- NOTE | 2017-04-09 15:05 | NUR ---
PT BEING TAKEN FOR PROCEDURE.
--- NOTE | 2017-04-09 16:23 | NUR ---
REPORT REC'D FROM JASWANT AHUMADA IN SPECIALS. ROOM READY AND AWAITING PT ARRIVAL.
--- NOTE | 2017-04-09 16:42 | NUR ---
PT REC'D BACK TO ROOM FROM PROCEDURE. AAOX4. SLIGHTLY DROWSY, BUT EASILY AWAKENED. VSS. BP- 123/76, P- 105, T- 98.9, R-15, O2- 93% ON RA. DRAIN SITE TO L UPPER BUTTOCK CDI. ABLE TO FLUSH DRAIN WITH EASE. NO FLUID IN COLLECTION BAG CURRENTLY. SON AT BEDSIDE. BED LOW, CALL LIGHT IN REACH, DENIES NEEDS. CPOC.
--- NOTE | 2017-04-09 17:52 | NUR ---
DR. SONG PAGED REGARDING CURRENT BP 190/102. NEW ORDERS REC'D.
--- NOTE | 2017-04-09 20:00 | NUR ---
SHIFT ASSESSMENT COMPLETE AT THIS TIME. PT STATES THAT HER BUTTOCKS IS HURTING HER AT THIS TIME. A POS BLOOD INFUSING AT THIS TIME. REPOSITIONED FOR COMFORT. SON AT BEDSIDE. S1S2 AUDIBLE. BS ACTIVE IN ALL FOUR QUADS. CLEAR LUNG SOUNDS THROUGHOUT ALL LOBES. DRAIN ON BUTTOCKS HAS SEROUS FLUID NOTED AT THIS TIME. PT STATES THAT HER IV IS HURTING HER REALLY BADLY. BLOOD RETURN AND FLUSH EASILY. NO S/S OF INFILTRATION. WILL CONT TO MONITIOR.
--- NOTE | 2017-04-09 21:30 | NUR ---
D/C'D IV FROM L FOREARM. RESTARTED 20 G IV ON R WRIST X2 ATTEMPTS. SWAB CAPS IN USE. TOOL TROUBLE SHOOTER AND NS INFUSING AT THIS TIME.
--- NOTE | 2017-04-09 22:08 | NUR ---
PT REFUSES TO TAKE CITRATE OF MAGNESIA 300 ML BOTTLE.
--- NOTE | 2017-04-09 23:20 | NUR ---
PT'S BP 206/118. SHE STATES THAT SHE IS HAVING CHEST PAIN AT THIS TIME. HR 128 SINUS TACH. APRESOLINE ADMINISTERED. PT LYING BACK IN BED AT THIS TIME. O2 ON 4L VIA NC. WILL CALL SKIN CARE SPECIALIST.
--- NOTE | 2017-04-09 23:50 | NUR ---
BP AT THIS TIME READS 185/112. PT LYING BACK IN BED. FAMILY MEMBERS AT BEDSIDE. SHE DEMANDS THAT SHE IS TO HAVE A CHEST XRAY. INFORMED HER THAT WE ARE DOING EVERYTHING WE CAN AT THIS TIME AND THAT LAB IS ON THERE WAY TO CHECK HER CARDIAC ENZYMES. ONE NITRO TAB SL ADMINISTERED.
--- NOTE | 2017-04-09 23:55 | NUR ---
PT REFUSES ADDITIONAL NITRO SL TAB. SHE STATES THAT SHE BELIEVES THAT IT IS GOING TO CAUSE AN ANEURYSM. EDUCATED HER ON THE MED AND TOLD HER THAT SHE MIGHT HAVE A SLIGHT PINO, BUT IT WILL HELP WITH THE CHEST PAIN AND THAT IT WILL HELP BRING HER BP DOWN. SHE STILL DENIES THE SL TAB AT THIS TIME. BP READING 177/96. BP IS TRENDING DOWN. RECIEVED SECOND UNIT OF BLOOD FROM LAB AT 2309. DID NOT START BLOOD B/C OF PT'S CURRENT STATUS. TOOK BLOOD BACK TO LAB TO DISCARD AT THIS TIME.
[2017-04-10] VITALS (14 sets, daily range): BP systolic 154–195; BP diastolic 84–107; Ht 167.6 cm; Wt 88.9 kg
--- NOTE | 2017-04-10 00:23 | NUR ---
NEW ORDER'S RECIEVED. TELEMETRY, NITRO SL X3 Q5MIN, CARDIAC ENZYMES, EKG. CARIDAD FROM MED II IN ROOM DOING EKG AT THIS TIME.
--- NOTE | 2017-04-10 00:55 | NUR ---
PT STATES THAT SHE IS NAUSEATED AT THIS TIME, BUT DOES NOT WANT ANY MORE MEDICATION FOR IT. PT IN RESTROOM. SMALL BM NOTED. SEMI FORMED STOOL. PT BACK IN BED AT THIS TIME AND STATES THAT SHE FEELS STRONGER. DAUGHTER AT BEDSIDE. WILL CONT TO MONITOR.
[2017-04-10 00:59] LABS: CKMB 0.1 U/L (0.0-3.6); CREATINE KINASE 46 UL (21-215)
[2017-04-10 01:01] LABS: TROPONIN-I < 0.017 ng/mL (0.000-0.060)
--- NOTE | 2017-04-10 03:02 | NUR ---
CALLED LAB. ANOTHER UNIT OF A POS IS BEING SET UP NOW. LAB WILL CALL WHEN IT IS READY.
--- NOTE | 2017-04-10 03:50 | NUR ---
SECOND UNIT OF PRBC'S INFUSING AT THIS TIME. NO S/S OF TRANSFUSION REACTION. WILL STAY IN ROOM WITH PT PER FACILITY POLICY. VSS.
[2017-04-10 07:22] LABS: CKMB 0.3 U/L (0.0-3.6); CREATINE KINASE 51 UL (21-215)
[2017-04-10 07:23] LABS: TROPONIN-I < 0.017 ng/mL (0.000-0.060)
--- NOTE | 2017-04-10 08:25 | NUR ---
ENTERED PT ROOM TO ANSWER CALL LIGHT. LAVELL, WITH IR, AT BEDSIDE EXAMINING DRAIN. DRAIN FLUSHED WITHOUT RESISTANCE AND PROVIDED GOOD RETURN. ONCE LAVELL, WITH IR, LEFT. PT IMMEDIATELY STARTED COMPLAINING OF 10/10 R SIDE PAIN AND STOMACH PAIN. DEMANDING LIQUID DIET. TOLD PT THAT IT WOULD BE UP TO THE DOCTOR. SHE STATED, "WELL THEN I'LL JUST CALL HIM." I SAID, "THAT IS FINE, BUT HE IS IN SURGERY THIS MORNING AND MIGHT NOT BE ABLE TO TAKE YOUR CALL." ADMINISTERED PRN HYDRALIZINE PER BP OF 176/92. WILL REASSESS. PT SITTING UP ON SIDE OF BED HOLDING STOMACH AND GROANING. TRIED TO EXPLAIN TO PT THAT THE MORE SHE MOVED AROUND THE MORE IT WOULD HURT, BUT PT WILL NOT LISTEN AND STATES SHE NEEDS TO "KEEP MOVING TO MAKE IT BETTER." REGULAR HEART RATE AND RHYTHM. CURRENTLY RUNNING 105 ST ON TELEMETRY PER YARI, HYPERBARIC WELDER DIVER. BOWEL SOUNDS ACTIVE X4 QUADS. DRAIN SITE ABOVE LEFT BUTTOCK CDI AND FREE OF REDNESS AND SWELLING. SON AT BEDSIDE. BED LOW, CALL LIGHT IN REACH, WILL CONTINUE TO MONITOR.
--- NOTE | 2017-04-10 09:50 | NUR ---
PT UP AMBULATING AROUND THE UNIT. NO NEEDS EXPRESSED AT THIS TIME. WILL CONTINUE TO MONITOR.
[2017-04-10 10:38] LABS: BASOPHILS 0.2 % (0-2); EOSINOPHILS 0.5 % (0-7); IMMATURE GRANULOCYTES 0.7 % (0-5); LYMPHOCYTES 16.4 % (15-50); MCH 23.5 pg (26.0-34.0); MCHC 32.2 g/dL (31.0-37.0); MEAN PLATELET VOLUME 9.1 fL (7.4-10.4); MONOCYTES 6.8 % (2-11); NEUTROPHILS 75.4 % (40-80); PLATELET COUNT 435 10x3/uL (130-400); RDW 14.7 % (11.5-14.5); WBC 14.4 10x3/uL (4.8-10.8)
[2017-04-10 10:41] LABS: HEMATOCRIT 30.1 % (36.0-48.0); HEMOGLOBIN 9.7 g/dL (12-16); MCV 73.1 fL (80.0-100.0); RBC 4.12 10x6/uL (4.00-5.40)
[2017-04-10 10:53] LABS: ALBUMIN 2.1 g/dL (3.4-5.0); ALKALINE PHOSPHATASE 141 U/L (46-116); ALT (SGPT) 29 U/L (10-68); BILIRUBIN - TOTAL 0.65 mg/dL (0.2-1.3); CALC OSMOLALITY 279 mosm/kg (275-300); CALCIUM 8.4 mg/dL (8.5-10.1); CARBON DIOXIDE 33.1 mmol/L (21.0-32.0); CHLORIDE - SERUM 102 mmol/L (98-107); CREATININE - SERUM 0.6 mg/dL (0.6-1.3); GLUCOSE 148 mg/dL (74-106); POTASSIUM - SERUM 3.6 mmol/L (3.5-5.1); PROTEIN - SERUM 6.9 g/dL (6.4-8.2); SODIUM 140 mmol/L (136-145); UREA NITROGEN 6 mg/dL (7-18); eGFR NON AFRICAN AMERICAN > 90 mL/min (90-120)
[2017-04-10 11:04] LABS: CKMB 0.5 U/L (0.0-3.6); CREATINE KINASE 60 UL (21-215)
[2017-04-10 11:10] LABS: TROPONIN-I < 0.017 ng/mL (0.000-0.060)
[2017-04-10 23:54] LABS: CKMB 0.2 U/L (0.0-3.6); CREATINE KINASE 65 UL (21-215); PRO BNP 1464 pg/mL (0-125)
[2017-04-10 23:57] LABS: TROPONIN-I < 0.017 ng/mL (0.000-0.060)
[2017-04-11] VITALS: BP 183/96
--- NOTE | 2017-04-11 00:11 | NUR ---
PT STATES TOOL SPECIALIST DOES NOT CONTROL PAIN. C/O RIGHT FLANK PAIN. REPORTED TO DR. SONG ON ROUNDS. PT TOOK SHOWER. STATES SHE FEELS BETTER NOW. LAB CAME AND MI BLOOD PER ORDERS. REMINDED PT TO BE NPO AFTER MIDNIGHT AND WILL CUT OFF PAIN MEDICINE ABOUT 0200 FOR PIPIDA SCAN THIS AM. RADIOLOGY DRAIN TO ABOVE LEFT BUTTOCKS DRAINING SEROUS FLUID TO BILIARY BAG. NO OTHER NEEDS. WILL CONTINUE TO MONITOR.
[2017-04-11 04:00] VITALS: BP 193/103
[2017-04-11 05:54] LABS: BASOPHILS 0.1 % (0-2); EOSINOPHILS 0.8 % (0-7); HEMATOCRIT 27.5 % (36.0-48.0); IMMATURE GRANULOCYTES 0.6 % (0-5); LYMPHOCYTES 16.6 % (15-50); MCH 23.9 pg (26.0-34.0); MCHC 32.7 g/dL (31.0-37.0); MCV 72.9 fL (80.0-100.0); MEAN PLATELET VOLUME 9.7 fL (7.4-10.4); MONOCYTES 8.1 % (2-11); NEUTROPHILS 73.8 % (40-80); PLATELET COUNT 401 10x3/uL (130-400); RBC 3.77 10x6/uL (4.00-5.40); RDW 14.9 % (11.5-14.5); WBC 13.1 10x3/uL (4.8-10.8)
[2017-04-11 06:17] LABS: ALBUMIN 1.8 g/dL (3.4-5.0); ALKALINE PHOSPHATASE 115 U/L (46-116); ALT (SGPT) 22 U/L (10-68); CALC OSMOLALITY 279 mosm/kg (275-300); CALCIUM 7.9 mg/dL (8.5-10.1); CARBON DIOXIDE 34.3 mmol/L (21.0-32.0); CHLORIDE - SERUM 104 mmol/L (98-107); CREATINE KINASE 45 UL (21-215); CREATININE - SERUM 0.5 mg/dL (0.6-1.3); GLUCOSE 137 mg/dL (74-106); MAGNESIUM - SERUM 1.9 mg/dL (1.8-2.4); PHOSPHOROUS 3.2 mg/dL (2.5-4.9); POTASSIUM - SERUM 3.2 mmol/L (3.5-5.1); PROTEIN - SERUM 5.9 g/dL (6.4-8.2); SODIUM 141 mmol/L (136-145); TROPONIN-I < 0.017 ng/mL (0.000-0.060); UREA NITROGEN 5 mg/dL (7-18); eGFR NON AFRICAN AMERICAN > 90 mL/min (90-120)
--- NOTE | 2017-04-11 07:00 | NUR ---
PT RESTING ON BELLY. AWAKENS TO VOICE. S1S2 AUDIBLE. LUNG SOUNDS CLEAR THROUGH OUT. DRAIN ON LEFT BUTTOCK WITH SEROUS DRAINAGE. BS ACTIVE X 4. PERIPHERAL PULSES PALPABLE. EDEMA NOTED ON LOWER EXTREMITIES. NO OTHER SKIN ISSUES NOTED. SCD'S NOT ON AT THIS TIME. PT REFUSES THEM. PT REPORTS PAIN OF 10/10. ENVIRONMENTAL STUDIES PROGRAM DIRECTOR CURRENTLY NOT ON DUE TO PROCEDURE BEING DONE TODAY. PT NPO. ON TELEMETY WITH RATE OF 105 SYNUS TACH. CURRENTLY ON ROOM AIR. NO OTHER NEEDS AT THIS TIME. WILL CONTINUE TO MONITOR.
[2017-04-11 08:27] VITALS: BP 172/100
--- NOTE | 2017-04-11 08:30 | NUR ---
BULK SEALER RESTARTED PER ORDERS. SPOKE WITH XI IN NUCLEAR MED AND SHE STATED THAT DR MONAE SAID PT COULD HAVE PAIN MEDICATION PRIOR TO THIS SCAN BECAUSE SHE DOES NOT HAVE HER GALLBLADDER.
--- NOTE | 2017-04-11 10:58 | NUR ---
PT REPORTED THAT HER STOMACH WAS UPSET. 4MG ZOFRAN GIVEN PER ORDERS. WILL CONTINUE TO MONITOR.
--- NOTE | 2017-04-11 11:11 | NUR ---
PT DISCONNECTED FROM IV MACHINE. CLEAN NONSKID SOCKS PROVIDE. PT BEING TAKEN FOR PROCEDURE.
--- NOTE | 2017-04-11 11:43 | NUR ---
PT RESTING ON BELLY. DRAIN NOTED ON LEFT BUTTOCKS. CURRENTLY OFF HER COLLAR FUSER AWAITING SCHEDULED PROCEDURE. RATES PAIN 10/10. R-WRIST PERIPHERAL IV WITH NS INFUSING AT 125ML/HR. DRESSING INTACT WITH NO REDNESS, SWELLING OR PAIN NOTED AT SITE. LUNG SOUNDS CLEAR THROUGH OUT. S1S2 NOTED. ON TELEMETRY MONITORING WITH RATE OF 105 SINUS TACH. LOWER EXTREMITIES HAVE A TRACE OF EDEMA. NO OTHER NEEDS NOTED AT THIS TIME. WILL CONTINUE TO MONITOR.
--- NOTE | 2017-04-11 11:59 | NUR ---
SPOKE WITH REA MARCANO FOR DR MCMILLAN AND NEW ORDERS GIVEN FOR CTA OF CHEST PE PROTOCOL, ELIQUIS 5MG PO BID, AND VENOUS DOPPLER STUDY OF LOWER EXTREMETIES. WILL CONTINUE WITH PLAN OF CARE.
[2017-04-11 14:23] LABS: CKMB 0.1 U/L (0.0-3.6); CREATINE KINASE 58 UL (21-215); TROPONIN-I < 0.017 ng/mL (0.000-0.060)
[2017-04-11 16:15] VITALS: BP 163/96
[2017-04-11 20:00] VITALS: BP 188/121
--- NOTE | 2017-04-11 23:15 | NUR ---
REC'D SITTING ON SIDE OF THE BED. ALERT AND ORIENTED X4. DENIED PAIN AT THIS TIME. IS GETTING READY TO TAKE A SHOWER. DELAYED IV FOR 45MIN. INSTRUCTED TO NEEDED ANYTHING TO CALL, VERBALIZED UNDERSTANDING. WILL ADMIN PM/AM MEDS PRESCRIBED. BED LOW, LOCKED, CALL LIGHT IN REACH. WILL CONT TO MONITOR, NO DISTRESS NOTED.
[2017-04-12] VITALS (7 sets, daily range): BP systolic 110–193; BP diastolic 59–109
--- NOTE | 2017-04-12 01:59 | NUR ---
RESTING QUIETLY WITH EYES CLOSED. SON IN RECLINER, ALSO ASLEEP. BED IN LOWEST POSITION, CALL LIGHT IN REACH. BED RIALS UP X'S 2.
--- NOTE | 2017-04-12 06:25 | NUR ---
BP WAS 198/103, HAS APRESOLINE PRN FOR HIGN BP, I PULLED MED AND SCANNED IN AND JASWANT ELLIOTT ADMINISTERED THROUGH IV. WILL CONT TO MONITOR BP. BED LOW, LOCKED, CALL LIGHT IN REACH.
[2017-04-12 06:33] LABS: BASOPHILS 0.2 % (0-2); EOSINOPHILS 1.2 % (0-7); HEMATOCRIT 27.4 % (36.0-48.0); HEMOGLOBIN 8.8 g/dL (12-16); IMMATURE GRANULOCYTES 0.3 % (0-5); LYMPHOCYTES 20.4 % (15-50); MCH 23.6 pg (26.0-34.0); MCHC 32.1 g/dL (31.0-37.0); MCV 73.5 fL (80.0-100.0); MEAN PLATELET VOLUME 9.3 fL (7.4-10.4); MONOCYTES 6.1 % (2-11); NEUTROPHILS 71.8 % (40-80); RBC 3.73 10x6/uL (4.00-5.40); RDW 15.2 % (11.5-14.5); WBC 13.2 10x3/uL (4.8-10.8)
[2017-04-12 06:37] LABS: PLATELET COUNT 493 10x3/uL (130-400)
[2017-04-12 06:52] LABS: ALBUMIN 1.9 g/dL (3.4-5.0); ALKALINE PHOSPHATASE 110 U/L (46-116); ALT (SGPT) 21 U/L (10-68); BILIRUBIN - TOTAL 0.39 mg/dL (0.2-1.3); CALC OSMOLALITY 278 mosm/kg (275-300); CHLORIDE - SERUM 105 mmol/L (98-107); CREATININE - SERUM 0.5 mg/dL (0.6-1.3); GLUCOSE 119 mg/dL (74-106); POTASSIUM - SERUM 3.5 mmol/L (3.5-5.1); PROTEIN - SERUM 6.3 g/dL (6.4-8.2); SODIUM 141 mmol/L (136-145); UREA NITROGEN 5 mg/dL (7-18); eGFR NON AFRICAN AMERICAN > 90 mL/min (90-120)
--- NOTE | 2017-04-12 08:29 | NUR ---
AWAKE AND ALERT. ORIENTED X3. C/O INTENSE PAIN TO RIGHT SIDE. REPORTS NO RELIEF WITH USE OF GELATIN POWDER MIXER. REQUESTED AND GIVEN 0.5 KLONOPIN PO TO TRY AND HELP HER RELAX. LUNGS ARE CLEAR BILATERALLY, NO COUGH NOTED. SKIN IS INTACT WITHOUT REDNESS. BILARY DRAIN TO LEFT FLANK PATENT WITH SEROUS DRAINAGE NOTED. IV TO RIGHT WRIST IS PATENT WITHOUT REDNESS AT INSERTION SITE. DENIES NEEDS. WILL MONITOR.
--- NOTE | 2017-04-12 09:51 | NUR ---
RESTING QUIETLY AT THIS TIME. FAMILY AT BEDSIDE.
--- NOTE | 2017-04-12 12:30 | NUR ---
BP UP TO 182/109. GIVEN 10MG APRESOLINE SLOW IVP FOR SAME. WILL MONITOR.
--- NOTE | 2017-04-12 14:30 | NUR ---
BP DOWN TO 159/91. WILL GIVE NEW BP MEDS NOW.
--- NOTE | 2017-04-12 17:00 | NUR ---
FSBS 162. GIVEN 2 UNITS HUMALOG SUBQ PER SS. SUPPER SERVED IN ROOM. NO CHANGES NOTED.
--- NOTE | 2017-04-12 18:00 | NUR ---
DR. DUDLEY NOTIFIED OF CONTINUED PAIN. NEW ORDERS RECEIVED FOR TORADOL. NURSING SEED CONE PICKER AWARE OF NEED.
--- NOTE | 2017-04-13 02:26 | NUR ---
RC;Vincent. AT [facility]. OF SHIFTREQUESTING TO TAKE A SHOWER IV UNHOOKED TAPED TO SHOWER [place]. WELL. STATES TORADOL HELPED.BILARY DRAIN FLUSHED WITH NS 10CC.ABD. DISTENDED BUT SOFT AND PALABLE BOWEL SOUNDS ALL QUAD.
[2017-04-13 04:00] VITALS: BP 156/86
[2017-04-13 06:30] LABS: BASOPHILS 0.2 % (0-2); EOSINOPHILS 1.1 % (0-7); HEMATOCRIT 27.1 % (36.0-48.0); HEMOGLOBIN 8.7 g/dL (12-16); IMMATURE GRANULOCYTES 0.4 % (0-5); LYMPHOCYTES 18.5 % (15-50); MCH 23.5 pg (26.0-34.0); MCHC 32.1 g/dL (31.0-37.0); MCV 73.2 fL (80.0-100.0); MEAN PLATELET VOLUME 9.5 fL (7.4-10.4); MONOCYTES 8.2 % (2-11); NEUTROPHILS 71.6 % (40-80); PLATELET COUNT 562 10x3/uL (130-400); RDW 15.5 % (11.5-14.5)
[2017-04-13 06:54] LABS: ALBUMIN 1.9 g/dL (3.4-5.0); ALKALINE PHOSPHATASE 102 U/L (46-116); ALT (SGPT) 19 U/L (10-68); CALC OSMOLALITY 282 mosm/kg (275-300); CARBON DIOXIDE 31.9 mmol/L (21.0-32.0); CHLORIDE - SERUM 107 mmol/L (98-107); CREATININE - SERUM 0.6 mg/dL (0.6-1.3); GLUCOSE 114 mg/dL (74-106); POTASSIUM - SERUM 3.4 mmol/L (3.5-5.1); SODIUM 143 mmol/L (136-145); UREA NITROGEN 5 mg/dL (7-18); eGFR NON AFRICAN AMERICAN > 90 mL/min (90-120)
--- NOTE | 2017-04-13 07:00 | NUR ---
AWAKE AND ALERT.ORIENTED X 3. REPORTS GOOD PAIN MANAGEMENT WITH USE OF TORADOL. WILL CONTINUE TO MONITOR. LUNGS ARE CLEAR BILATERALLY, NO COUGH NOTED. SKIN IS INTACT WITHOUT REDNESS EXCEPT BILIARY DRAIN TO LOWER RIGHT SIDE OF BACK/ABDOMEN WHICH HAS SEROUS DRAINAGE NOTED. IV TO RIGHT HAND IS PATNET WITHOUT REDNESS AT INSERTION SITE. DENIES NEEDS.
--- NOTE | 2017-04-13 09:00 | NUR ---
DR. DUDLEY HERE. NO NEW ORDERS. DENIES NEEDS. ATE MOST OF BREAKFAST.
[2017-04-13 10:07] VITALS: BP 155/95
[2017-04-13 12:27] VITALS: BP 184/112
--- NOTE | 2017-04-13 12:30 | NUR ---
BP 184/118. GIVEN 10 MG APRESOLINE SLOW IVP FOR SAME. WILL MONITOR. FSBS 126.NO COVERAGE. LUNCH SERVED IN ROOM.
--- NOTE | 2017-04-13 13:41 | NUR ---
C/O CHEST PAIN AT THIS TIME. STATED IT FEELS HEAVY. GIVEN 0.4MG NITRO SUBLINGUAL PER ORDERS. WILL MONITOR. O2 SAT 99% ON 2L NC. BP AT 126/71 AT THIS TIME. WILL MONITOR.
[2017-04-13 15:23] VITALS: BP 158/94
--- NOTE | 2017-04-13 16:00 | NUR ---
IV TO RIGHT FOREARM LEAKING. D/C WITH CATHETER INTACT. RESITED TO LEFT HAND AFTER ONE ATTEMPT WITH 20 G.
--- NOTE | 2017-04-13 17:12 | NUR ---
AMBULATED OVER 500 FEET PER SELF. FSBS 134. NO COVERAGE REQUIRED. SUPPER SERVED IN ROOM. NO CHANGES NOTED.
--- NOTE | 2017-04-13 18:24 | NUR ---
ATE MOST OF SUPPER. C/O SOME NAUSEA. GIVEN 4MG ZOFRAN SLOW IVP FOR SAME. WILL MONITOR. UP TO SHOWER AT THIS TIME. NO CHANGES NOTED.
[2017-04-13 20:00] VITALS: BP 183/106
[2017-04-14] VITALS (9 sets, daily range): BP systolic 173–204; BP diastolic 93–115
--- NOTE | 2017-04-14 01:37 | NUR ---
B/P 201/108. APRESOLINE 10MG TITRATED [id number] NS GIVEN SLOWLY ORDERED FOR ELEVATED BP
--- NOTE | 2017-04-14 02:00 | NUR ---
PT IN BED WITH NO DISTRESS. RESPIRATIONS EVEN AND UNLABORED. SIDE RAILS X 2. BED LOW. CALL LIGHT IN REACH.
[2017-04-14 05:51] LABS: BASOPHILS 0.2 % (0-2); EOSINOPHILS 1.3 % (0-7); HEMATOCRIT 26.9 % (36.0-48.0); HEMOGLOBIN 8.6 g/dL (12-16); IMMATURE GRANULOCYTES 0.3 % (0-5); LYMPHOCYTES 22.2 % (15-50); MCH 23.3 pg (26.0-34.0); MCV 72.9 fL (80.0-100.0); MEAN PLATELET VOLUME 9.3 fL (7.4-10.4); MONOCYTES 8.5 % (2-11); NEUTROPHILS 67.5 % (40-80); PLATELET COUNT 600 10x3/uL (130-400); RBC 3.69 10x6/uL (4.00-5.40); RDW 15.8 % (11.5-14.5); WBC 11.5 10x3/uL (4.8-10.8)
[2017-04-14 06:19] LABS: ALBUMIN 1.9 g/dL (3.4-5.0); ALKALINE PHOSPHATASE 100 U/L (46-116); ALT (SGPT) 19 U/L (10-68); BILIRUBIN - TOTAL 0.37 mg/dL (0.2-1.3); CALC OSMOLALITY 277 mosm/kg (275-300); CARBON DIOXIDE 32.3 mmol/L (21.0-32.0); CHLORIDE - SERUM 103 mmol/L (98-107); CREATININE - SERUM 0.6 mg/dL (0.6-1.3); GLUCOSE 115 mg/dL (74-106); POTASSIUM - SERUM 3.7 mmol/L (3.5-5.1); PROTEIN - SERUM 6.3 g/dL (6.4-8.2); SODIUM 140 mmol/L (136-145); UREA NITROGEN 6 mg/dL (7-18); eGFR NON AFRICAN AMERICAN > 90 mL/min (90-120)
--- NOTE | 2017-04-14 08:49 | NUR ---
AM MEDS GIVEN. PT EATING BREAKFAST. CONSENT FORM SINED FOR CT OF ABSCESS DRAIN WITH POSSIBLE REMOVAL. NOTIFIED PT THAT SHE WILL BE NPO STARTING AT LUNCH PER ORDERS. PT COMPLAINTS OF CHEST PAIN 04/10. HR 101 SYNUS TACH ON TELEMETRY. WILL CONTINUE TO MONITOR.
--- NOTE | 2017-04-14 09:03 | NUR ---
OFFERRED NITRO FOR CHEST PAIN. PT REFUSED. "I WANT TO WAIT". STATES THAT CHEST PAIN HAS EASED UP SINCE SHE TOOK SCHUDULED BP MEDICATIONS.
--- NOTE | 2017-04-14 09:35 | NUR ---
PT GOING TO GET CT OF ABDOMENT. POSSIBLE REMOVAL OF DRAIN.
--- NOTE | 2017-04-14 14:57 | NUR ---
NUTRITION MONITORING & EVAL CHART REVIEWED, PT VISIT. TOLERATING REG DIET WITH 10 TO 25% INTAKE. PT REPORTS SHE HAD WT LOSS SURGERY LAST OCT AND HAS LOST ~100#. WILL CONTINUE TO PROVIDE DIET, MONITOR PT PROGRESS. RD FOLLOWING
--- NOTE | 2017-04-14 19:46 | NUR ---
PT IS SITTING IN BED, STATED SHE IS CONCERNED ABOUT HER BP WELL UNEXPLAINED WEIGHT GAIN SINCE GALLBLADDER SURGERY 6 WEEKS AGO. PT LL ABDOMINAL AREA, SKIN FOLD IS LIGHTNOT HARD TO LIFT, ON PT RT SIDE SKIN FOLD IS HEAVIER AND UNABLE TO LIFT WITH ONE HAND, FIRM. PT C/O NAUSEA AND CONSTIPATION, GAVE PT ZOFRAN FOR NAUSEA AND MADE A PRUNE JUICE CONCOCTION FOR CONSTIPATION, BED IN LOW POSITION, CALL LIGHT IN REACH, CONTINUE WITH PLAN OF CARE
[2017-04-15] VITALS: BP 159/89
--- NOTE | 2017-04-15 02:00 | NUR ---
PT IN BED WITH NO DISTRESS. RESPIRATIONS ARE EVEN AND UNLABORED. SIDE RAILS X 2. BED IS LOW. CALL LIGHT IN REACH.
[2017-04-15 06:16] LABS: BASOPHILS 0.2 % (0-2); HEMATOCRIT 28.4 % (36.0-48.0); HEMOGLOBIN 9.2 g/dL (12-16); IMMATURE GRANULOCYTES 0.4 % (0-5); LYMPHOCYTES 14.4 % (15-50); MCH 23.8 pg (26.0-34.0); MCHC 32.4 g/dL (31.0-37.0); MCV 73.4 fL (80.0-100.0); MEAN PLATELET VOLUME 9.6 fL (7.4-10.4); MONOCYTES 8.8 % (2-11); NEUTROPHILS 75.2 % (40-80); PLATELET COUNT 658 10x3/uL (130-400); RBC 3.87 10x6/uL (4.00-5.40); RDW 15.9 % (11.5-14.5); WBC 13.4 10x3/uL (4.8-10.8)
[2017-04-15 06:49] LABS: ALBUMIN 2.1 g/dL (3.4-5.0); ALKALINE PHOSPHATASE 105 U/L (46-116); ALT (SGPT) 17 U/L (10-68); CALC OSMOLALITY 278 mosm/kg (275-300); CALCIUM 8.5 mg/dL (8.5-10.1); CARBON DIOXIDE 32.4 mmol/L (21.0-32.0); CHLORIDE - SERUM 103 mmol/L (98-107); CREATININE - SERUM 0.6 mg/dL (0.6-1.3); GLUCOSE 152 mg/dL (74-106); PROTEIN - SERUM 6.6 g/dL (6.4-8.2); SODIUM 140 mmol/L (136-145); UREA NITROGEN 5 mg/dL (7-18); eGFR NON AFRICAN AMERICAN > 90 mL/min (90-120)
--- NOTE | 2017-04-15 07:00 | NUR ---
PT AWAKE, ALERT AND ORIENTED. RESTING IN BED. SON IN ROOM. PT IS CONCERNED ABOUT RIGHT SIDE OF ABDOMEN BEING DISTENDED COMPARED TO LEFT SIDE. STATES THAT IT IS A LITTLE TENDER. SHE'S ON ROOM AIR. REFUSES TO WEAR HEART MONITOR. PULSE RATE IS 100. DILAUDID FUR FEEDER 0.2 MG EVERY 10MIN WITH 4MG 4HR LOCKOUT. LEFT FOREARM PERIPHERAL IV PATENT WITH DRESSING INTACT. NS INFUSING AT 15ML/HR. NO OTHER NEEDS AT THIS TIME. WILL CONTINUE TO MONITOR.
[2017-04-15 08:54] VITALS: BP 173/99
--- NOTE | 2017-04-15 11:29 | NUR ---
BS 136 NO INSULIN GIVEN PER SLIDING SCALE.
[2017-04-15 11:55] VITALS: BP 154/90
--- NOTE | 2017-04-15 12:19 | NUR ---
PT AMBULATING IN THE HALLWAY.
--- NOTE | 2017-04-15 13:57 | NUR ---
CM REASSESSMENT NOTE: PATIENT IS DISCHARGING HOME TODAY/SON DRIVING HER. PATIENT REF. HOME HEALTH.
--- NOTE | 2017-04-15 15:08 | NUR ---
PT CURRENTLY NOT IN ROOM. BELONGINGS MISSING. MESSAGE LEFT ON CELL PHONE [phone].
--- NOTE | 2017-04-18 09:41 | EC ---
PATIENT:AFUA SMITH DATE OF SERVICE: 04/09/17 SEX: F MEDICAL RECORD: [id number] DATE OF : 75 LOCATION:D.[facility] AGE OF PATIENT: 41 ADMISSION DATE: 04/09/17 REFERRING PHYSICIAN: INTERPRETING PHYSICIAN: MEHRAN HUTCHISON MD ECHOCARDIOGRAM REPORT ECHO CHARGES 4 ECHO COMPLETE CLINICAL DIAGNOSIS: HTN ECHOCARDIOGRAPHIC MEASUREMENTS (adult normal given) AC root (d.<3.7cm) 3.3 cm LV Septum d (<1.2 cm> 1.9 cm Valve Excursion 2.1 cm LV Septum (systole) 2.6 cm Left Atria (s.<4.0cm> 4.8 cm LVPW d(<1.2cm) 1.8 cm RV (d.<2.3cm) 2.4 cm LVPW (sytole) 2.5 cm LV diastole(<5.6CM) 4.3 cm MV E-F(>70mm/sec) cm LV systole 2.4 cm LVOT Diameter 2.0 cm MV exc.(>10mm) cm Est.ejection fraction (50-75%) % Pericardial Effusion N DOPPLER: LVIT cm/sec A 83.0 cm/sec E 97.0 cm/sec LA cm/sec RVSP 43.0 mmHg LVOT 122 cm/sec AOP1/2T m/s Asc. Ao 175 cm/sec RVOT 78.0 cm/sec RA cm/sec PA 130 cm/sec AV Gradient Peak 12.3 mmHg AV Mean 6.6 mmHg AV Area 2.2 cm MV Gradient Peak 4.8 mmHg MV Mean 2.6 mmHg MV Area cm COMMENTS: Biofuels Operations Manager: 1 JOJO HOLLOWAYDSOE Automobile Accessories Salesperson: 1 Dr. Hutchison TAPE# PACS DATE OF SERVICE: 04/11/2017 Echocardiogram FINDINGS: 1. Left ventricular chamber size is within normal limits. Left ventricular systolic function is normal. Overall ejection fraction estimated at 60%. 2. Left atrium is enlarged at 4.8 cm. Right atrium and right ventricular chamber sizes are as well mildly dilated. 3. Valvular structures have normal structure and motion. ECHOCARDIOGRAM REPORT [id number] AFUA SMITH 4. Doppler interrogation reveals trace mitral regurgitation, mild tricuspid regurgitation, no other valvular insufficiency or stenosis. Pulmonary systolic pressure estimated at 43 mmHg. 5. Small pericardial effusion is present that is not hemodynamically significant. No evidence of left ventricular thrombus. TRANSINT:[id number] Voice Confirmation ID: [id number] DOCUMENT ID: [id number] MEHRAN HUTCHISON MD at 0941 CC: [id number] DICTATION DATE: 04/11/17 1232 LINING BASTER: 04/11/172012 DIS IN 04/15/17 [id number] [place] [address]
== END 2017-04-15 16:11 | disposition home or self-care (01) | DRG 862 ==
LOC: D.ER 00:02 → D.MS 04-09 01:37
PROVIDERS: Family Medicine; ADMIT Surgery
DX: T81.4XXA Infection following a procedure, initial encounter (principal); K65.1 Peritoneal abscess; E11.9 Type 2 diabetes mellitus without complications; I10 Essential (primary) hypertension; K59.00 Constipation, unspecified; K64.4 Residual hemorrhoidal skin tags; E78.5 Hyperlipidemia, unspecified; R00.0 Tachycardia, unspecified; R07.89 Other chest pain; E83.51 Hypocalcemia; E87.6 Hypokalemia; R63.5 Abnormal weight gain

== ENCOUNTER 2017-04-08 05:47 | Inpatient (IN) | payer MEDICARE, MEDICAID ==
[~2017-04-08] VITALS: Ht 167.6 cm; Wt 89.5 kg
--- NOTE | 2017-04-08 07:10 | NUR ---
REPORT RECIEVED, ASSUMED CARE OF PT.
[2017-04-08 08:18] VITALS: BP 159/83; Ht 167.6 cm; Wt 89.5 kg
--- NOTE | 2017-04-08 08:40 | NUR ---
ASSESSMENT COMPLETED AT THIS TIME. L FOREARM IV INSUSING AT THIS TIME WITH FLUIDS ORDERED. DRSG CLEAN, DRY AND INTACT. PT COMPLAINS OF ABD PAIN 10/10 AT THIS TIME. NETWORK MANAGEMENT SPECIALIST OF MORPHINE INFUSING. FAMILY AT BEDSIDE. BED IN LOWEST POSITION, SIDE RAILS UP X 2, CALL LIGHT WITHIN REACH.
--- NOTE | 2017-04-08 08:45 | NUR ---
PT UNHAPPY WITH CARE RECIEVED HERE WITH "SURGEONS." PT REQUESTING TO BE TRANSFERRED TO [facility] IN [place]. PT C/O ROOM BEING TOO SMALL AND NOT PROVIDING MEAL TRAYS FOR HER FAMILY. STATED "I'M NOT UNHAPPY WITH ANYTHING YALL ARE DOING HERE, I JUST DON'T LIKE THE REPORT FROM THE DOCTORS I'VE BEEN GIVEN, IT'S LIKE THEY DON'T EVEN KNOW WHAT'S GOING ON." I TOLD THE PT I WOULD TALK TO THE OPTICAL FABRICATOR TO SEE WHAT WE NEED TO DO NEXT. NO OTHER COMPLAINTS AT THIS TIME.
--- NOTE | 2017-04-08 08:50 | NUR ---
SPOKE WITH JASWANT GRAY ABOUT PT WANTING TO LEAVE. ADIVSED TO LET THE PT KNOW SHE CAN CALL [facility] AND TRY TO GET ACCEPTED BY ANOTHER SURGEON, OR THAT SHE MAY LEAVE AMA. PT GIVEN [facility] NUMBER TO FIND A SURGEON.
--- NOTE | 2017-04-08 09:10 | NUR ---
ADVISED DR. DUDLEY OF PT SITUATION.
--- NOTE | 2017-04-08 09:15 | NUR ---
PT STATED SHE CANNOT FIND A SURGEON SO SHE IS JUST GOING TO HAVE TO LEAVE HERE AND GO THROUGH THE ER AT [facility] IN [place]. PT REQUESTED I LEAVE HER IV IN WHEN SHE IS READY TO GO. I INFORMED HER THAT I NEEDED TO GET HER TO SIGN AMA PAPERS AND THAT I WOULD D/C HER IV. PT STATED "[facility] DID NOT PUT THIS IV IN, [facility] DID, [facility] ARE NOT TAKING IT OUT." I TOLD PT I NEED TO D/C THE IV BEFORE SHE LEFT THE FLOOR AND ADVISED HER I WAS GOING TO GET THE PAPERS FOR HER TO SIGN. ASKED PT IF I COULD DO ANYTHING ELSE FOR HER AND SHE STATED "NO."
--- NOTE | 2017-04-08 09:25 | NUR ---
PT OBSERVED WALKING OUT OF HER ROOM WITH HER FAMILY. IN HOSPITAL GOWN AND IV STILL IN L ARM. ASKED PT TO STOP AND ADVISED HER WE NEED TO D/C IV AND HAVE HER SIGN PAPERS. PT REFUSED AND KEPT WALKING. LEFT THE FLOOR.
--- NOTE | 2017-04-08 09:30 | NUR ---
YARI. Enrrique RN NOTIFIED DR DUDLEY AND QUALITY HEAD OF PT LEAVING WITH IV AND WITHOUT SIGNING AMA PAPER.
--- NOTE | 2017-04-08 09:35 | NUR ---
CALLED PT NUMBER TO ADVISE HER PER POLICY WE HAVE TO D/C IV OR POLICE WILL BE CALLED, NO ANSWER. I WAS CALLING HER PHONE, SHE SENT HER SON BACK UP TO HER ROOM BECAUSE SHE FORGOT HER PHONE ENTERPRISE DATA ARCHITECT. YARI Osuna RN ADVISED SON OF HOSPITAL POLICIES.
== END 2017-04-08 10:46 | disposition left against medical advice (07) | DRG 862 ==
LOC: D.MS 05:47
PROVIDERS: ADMIT Surgery
DX: T81.4XXA Infection following a procedure, initial encounter (principal); K65.1 Peritoneal abscess; E11.9 Type 2 diabetes mellitus without complications; I10 Essential (primary) hypertension; F41.9 Anxiety disorder, unspecified; K59.00 Constipation, unspecified

== ENCOUNTER 2017-04-16 15:07 | Inpatient (IN) | payer MEDICARE, MEDICAID ==
[~2017-04-16] VITALS: Ht 167.6 cm; Wt 85.3 kg
[2017-04-16 16:42] LABS: BASOPHILS 0.2 % (0-2); EOSINOPHILS 1.1 % (0-7); HEMATOCRIT 29.2 % (36.0-48.0); HEMOGLOBIN 9.2 g/dL (12-16); IMMATURE GRANULOCYTES 0.4 % (0-5); LYMPHOCYTES 21.4 % (15-50); MCH 23.2 pg (26.0-34.0); MCHC 31.5 g/dL (31.0-37.0); MCV 73.7 fL (80.0-100.0); MEAN PLATELET VOLUME 9.1 fL (7.4-10.4); MONOCYTES 11.2 % (2-11); NEUTROPHILS 65.7 % (40-80); PLATELET COUNT 680 10x3/uL (130-400); RBC 3.96 10x6/uL (4.00-5.40); RDW 15.9 % (11.5-14.5); WBC 12.2 10x3/uL (4.8-10.8)
[2017-04-16 16:57] LABS: ALBUMIN 2.4 g/dL (3.4-5.0); ALKALINE PHOSPHATASE 109 U/L (46-116); ALT (SGPT) 16 U/L (10-68); BILIRUBIN - TOTAL 0.36 mg/dL (0.2-1.3); CALC OSMOLALITY 274 mosm/kg (275-300); CALCIUM 8.6 mg/dL (8.5-10.1); CARBON DIOXIDE 32.4 mmol/L (21.0-32.0); CHLORIDE - SERUM 102 mmol/L (98-107); CREATININE - SERUM 0.7 mg/dL (0.6-1.3); GLUCOSE 124 mg/dL (74-106); POTASSIUM - SERUM 3.8 mmol/L (3.5-5.1); PROTEIN - SERUM 7.4 g/dL (6.4-8.2); SODIUM 138 mmol/L (136-145); UREA NITROGEN 6 mg/dL (7-18); eGFR NON AFRICAN AMERICAN > 90 mL/min (90-120)
[2017-04-16 17:32] LABS: APPEARANCE CLEAR (CLEAR); COLOR DK YELLOW (YELLOW)
[2017-04-16 17:33] LABS: BILIRUBIN NEGATIVE (NEGATIVE); GLUCOSE NEGATIVE (NEGATIVE); KETONE NEGATIVE (NEGATIVE); LEUKOCYTE ESTERASE 1+ (NEGATIVE); NITRITE NEGATIVE (NEGATIVE); PROTEIN TRACE mg/dL (NEGATIVE); UROBILINOGEN NORMAL (NORMAL)
[2017-04-16 17:50] LABS: BACTERIA FEW /hpf (NONE SEEN); RED CELLS - URINE OCC /hpf (0-5); WHITE CELLS - URINE 0-5 /hpf (0-5)
[2017-04-16 17:55] LABS: AMYLASE - SERUM 27 U/L (25-115); LIPASE 101 U/L (73-393)
[2017-04-17] VITALS (7 sets, daily range): BP systolic 107–195; BP diastolic 70–121; Ht 167.6 cm; Wt 85.3 kg
--- NOTE | 2017-04-17 04:08 | NUR ---
CALLED DR MOJICA IN REGARDS TO PT BP, PT BP IS 179/116, PER REPORT FROM ER PT WAS TO HAVE NG TUBE WITH UNSUCCESSFUL ATTEMPTS AND NOSE BLEEDS SO NG WAS TO BE DROPPED DURING SURGERY. PER DR MOJICA PT IS NOT HAVING SURGERY. NPO FOR CT ABD AND PELVIS W/ CONTRAST. REPORT FROM ER STATED PT WAS TO HAVE SURGERY TODAY. INPUT ORDER FROM DR MOJICA CONTINUE TO MONITOR
[2017-04-17 05:41] LABS: BASOPHILS 0.2 % (0-2); EOSINOPHILS 1.8 % (0-7); HEMATOCRIT 29.5 % (36.0-48.0); HEMOGLOBIN 9.4 g/dL (12-16); IMMATURE GRANULOCYTES 0.3 % (0-5); LYMPHOCYTES 22.3 % (15-50); MCH 23.4 pg (26.0-34.0); MCHC 31.9 g/dL (31.0-37.0); MCV 73.6 fL (80.0-100.0); MEAN PLATELET VOLUME 8.9 fL (7.4-10.4); MONOCYTES 12.1 % (2-11); NEUTROPHILS 63.3 % (40-80); PLATELET COUNT 665 10x3/uL (130-400); RBC 4.01 10x6/uL (4.00-5.40); RDW 15.8 % (11.5-14.5)
[2017-04-17 05:59] LABS: APTT 33.1 SECONDS (22.8-39.4); INR 1.14 (0.85-1.17); PROTIME 14.5 SECONDS (11.6-15.0)
[2017-04-17 06:05] LABS: CALC OSMOLALITY 274 mosm/kg (275-300); CALCIUM 8.1 mg/dL (8.5-10.1); CARBON DIOXIDE 30.7 mmol/L (21.0-32.0); CHLORIDE - SERUM 103 mmol/L (98-107); CREATININE - SERUM 0.6 mg/dL (0.6-1.3); GLUCOSE 138 mg/dL (74-106); POTASSIUM - SERUM 3.5 mmol/L (3.5-5.1); SODIUM 138 mmol/L (136-145); eGFR NON AFRICAN AMERICAN > 90 mL/min (90-120)
[2017-04-17 06:07] LABS: UREA NITROGEN 4 mg/dL (7-18)
--- NOTE | 2017-04-17 07:33 | NUR ---
REPORT RECIEVED, ASSUMED CARE OF PT. PT COMPLAINS OF IV "BEEPING, AND I DON'T WANT TO HAVE TO JUST KEEP LYING HERE IN A CERTAIN POSITION, WITH MY ARM STRAIGHT, YA'LL ARE JUST GONNA HAVE TO PUT A NEW ONE IN." NO OTHER COMPLAINTS AT THIS TIME. SON SLEEPING AT BEDSIDE. BED IN LOWEST POSITION, SIDE RAILS UP X 2, CALL LIGHT WITHIN REACH. WILL RE-SITE IV.
--- NOTE | 2017-04-17 07:58 | NUR ---
PT IV RE-SITED TO R FOREARM X 1 ATTEMPT. OCCLUSIVE DRSG APPLIED, DATED AND INITIALED. TOLERATED WELL. L AC IV D/C'D CATHETER INTACT. BANDAGE APPLIED.
--- NOTE | 2017-04-17 09:55 | NUR ---
CONTACTED PHARMACY TO PLEASE DELIVER DIFLUCAN.
--- NOTE | 2017-04-17 10:05 | NUR ---
[facility] DELIVERED AND RUNNING ORDRED.
--- NOTE | 2017-04-17 11:45 | NUR ---
PT C/O BURNING AT IV SITE. SWELLING AND COOL TO THE TOUCH NOTED. IV D/C'D, WILL RESITE. IVY, VASCULAR NURSE CONTACTED.
[2017-04-18] VITALS (12 sets, daily range): BP systolic 173–199; BP diastolic 102–125
--- NOTE | 2017-04-18 01:12 | NUR ---
SLEEPING WITHOUT DISTRESS.CALL LIGHT IN REACH
--- NOTE | 2017-04-18 07:30 | NUR ---
REPORT RECIEVED, ASSUMED CARE OF PT. RESTING IN ROOM, SON AT BEDSIDE. NO COMPLAINTS AT THIS TIME, READING NEWSPAPER. L WRIST IV INFUSING ORDERED, DRSG CLEAN, DRY AND INTACT. BED IN LOWEST POSITION, SIDE RAILS UP X 2, CALL LIGHT WITHIN REACH.
--- NOTE | 2017-04-18 10:15 | NUR ---
VAN TROUGH NOT RECIEVED, WILL HANG IV WHEN RECIEVED.
--- NOTE | 2017-04-18 10:32 | NUR ---
Patient Name: AFUA SMITH Admission Status: ER Accout number: [id number] Admission Date: 04-16-2017 : 1975 Admission Diagnosis:CHRONIC OR UNSPECIFIED DUODENAL ULCER WITH PERFORATION Attending: OANH Current LOS: 2 Anticipated DC Date: 04-22-2017 Planned Disposition: Home Primary Insurance: [employer] MEDICARE ADV Discharge Planning Comments: CM MET WITH PATIENT REGARDING D/C NEEDS AND PLANS. PATIENT STATED SHE LIVES WITH HER SON (ADALI) AND HE WILL DRIVE HER HOME AT DISCHARGE. PATIENT STATED SHE HAS 4 STEPS W/RAILS TO ENTER HOME AND NO STAIRS INSIDE. PATIENT STATED SHE IS INDEPENDENT WITH HER CARE AND HAS NO DME AT HOME. PATIENTS PCP IS DR. VASQUEZ AND PHARMACY IS [facility] [address]. PATIENT DOES NOT WANT HOME HEALTH AT THIS TIME. CM WILL CONTINUE TO FOLLOW PATIENT WITH D/C NEEDS AND PLANS. [facility] [address] [phone] ADALI (SON) [phone] Tipping Machine Operator: Jyoti Adame Is the patient Alert and Oriented? Yes 0 * How many steps to enter\exit or inside your home? 4 W/RAILS 0 * PCP DR. VASQUEZ 0 * [facility] [address] 0 * Preadmission Environment Home with Family 0 * ADLs Independent 0 * Equipment None 0 * List name and contact numbers for known caregivers / representatives who currently or will assist patient after discharge: ADALI (SON) [phone] 0 * Community resources currently utilized None 0 * Additional services required to return to the preadmission environment? Yes 0 * Can the patient safely return to the preadmission environment? Yes 0 * Has this patient been hospitalized within the prior 30 days at any hospital? Yes 0 Grand Total: 0
--- NOTE | 2017-04-18 12:57 | NUR ---
PT LEAVING FLOOR TO OR.
--- NOTE | 2017-04-18 16:55 | NUR ---
PT RETURNED TO UNIT FROM OR RECOVERY. VSS. IV L WRIST, PATENT AND INFUSING FLUIDS ORDERED, DRSG CLEAN DRY AND INTACT. EFRA DRAIN X 2 ON ABD. G-TUBE WITH BILIARY BAG X 1. DELGADO CATHETER IN PLACE, STAT-LOCK PLACED. NO COMPLAINTS AT THIS TIME. BED IN LOWEST POSITION, SIDE RAILS UP X 2, CALL LIGHT WITHIN REACH.
--- NOTE | 2017-04-18 17:41 | NUR ---
PT EFRA DRAINS LABELED #1 AND #2. 105 ML OUTPUT FROM DRAIN #1.
--- NOTE | 2017-04-18 19:08 | NUR ---
PT RESTING COMFORTABLE IN ROOM, TATTOO IDENTIFIER WITHIN REACH, NO COMPLAINTS AT THIS TIME. SON AT BEDSIDE. EFRA DRAIN #1 AND #2 WITH DRSG CLEAN, DRY AND INTACT. G TUBE WITH BILIARY BAG, DRSG CLEAN, DRY AND INTACT. IV INFUSING ORDERED, DRSG CLEAN, DRY AND INTACT. DELGADO CATHETER PATENT, STAT-LOCK SECURED. BED IN LOWEST POSITION, SIDE RAILS UP X 2, CALL LIGHT WITHIN REACH.
--- NOTE | 2017-04-19 02:00 | NUR ---
PT LYING IN BED WATCHING TV. NO NEEDS AT THIS TIME. CONTINUE ELEMENTARY INSTRUCTIONAL COACH'S PLAN OF CARE.
[2017-04-19 03:58] VITALS: BP 180/106
--- NOTE | 2017-04-19 04:24 | NUR ---
PT COMPLAINED OF LEFT SIDED CP AND ASKED FOR NITRO, ADVISED WOULD HAVE TO CALL THE DOCTOR FOR I, CALLED TAYLOR AND EXPLAINED PT ON LITERACY COACH AND STILL C/O CP, GOT THE GO AHEAD TO CALL/ PT ALSO COMPLAINED OF ITCHING ALL OVER WILL ASK FOR BENEDRYL WELL
[2017-04-19 06:18] LABS: BASOPHILS 0.1 % (0-2); EOSINOPHILS 1.1 % (0-7); HEMATOCRIT 31.1 % (36.0-48.0); HEMOGLOBIN 9.7 g/dL (12-16); IMMATURE GRANULOCYTES 0.1 % (0-5); LYMPHOCYTES 20.5 % (15-50); MCH 23.1 pg (26.0-34.0); MCHC 31.2 g/dL (31.0-37.0); MEAN PLATELET VOLUME 9.1 fL (7.4-10.4); MONOCYTES 8.7 % (2-11); NEUTROPHILS 69.5 % (40-80); PLATELET COUNT 638 10x3/uL (130-400); RDW 15.8 % (11.5-14.5); WBC 8.2 10x3/uL (4.8-10.8)
[2017-04-19 06:35] LABS: ALBUMIN 2.2 g/dL (3.4-5.0); ALKALINE PHOSPHATASE 84 U/L (46-116); ALT (SGPT) 14 U/L (10-68); CALC OSMOLALITY 277 mosm/kg (275-300); CALCIUM 8.5 mg/dL (8.5-10.1); CHLORIDE - SERUM 104 mmol/L (98-107); CREATININE - SERUM 0.7 mg/dL (0.6-1.3); GLUCOSE 139 mg/dL (74-106); MAGNESIUM - SERUM 1.9 mg/dL (1.8-2.4); PHOSPHOROUS 3.9 mg/dL (2.5-4.9); POTASSIUM - SERUM 3.4 mmol/L (3.5-5.1); PROTEIN - SERUM 6.6 g/dL (6.4-8.2); SODIUM 140 mmol/L (136-145); TROPONIN-I < 0.017 ng/mL (0.000-0.060); UREA NITROGEN 4 mg/dL (7-18); eGFR NON AFRICAN AMERICAN > 90 mL/min (90-120)
--- NOTE | 2017-04-19 07:59 | NUR ---
SLEEPING, FAMILY AT BED SIDE, NO DISTRESS NOTED, BREATHING EVEN UNLABORED, CALL LIGHT IN REACH, BED LOWEST POSITION, WILL CONTINUE TO MONITOR
[2017-04-19 09:02] VITALS: BP 186/114
[2017-04-19 12:44] VITALS: BP 161/89
[2017-04-19 15:36] VITALS: BP 184/103
--- NOTE | 2017-04-19 16:44 | NUR ---
PATIENT IN MID BAEZA POSITION RESTING WITH EYES CLOSED. RESPIRATIONS EVEN AND UNLABORED. SIDE RAILS UP X2. BED IN LOW POSITION. CALL LIGHT IN REACH.
[2017-04-19 19:00] VITALS: BP 162/103
--- NOTE | 2017-04-19 19:30 | NUR ---
PATIENT RESTING IN BED WITH GUEST AT BEDSIDE AND DENIES NEEDS AT THIS TIME. BED IN LOWEST POSITION AND CALL LIGHT WITHIN REACH. ENCOURAGED THE PATIENT TO CALL IF SHE HAS NEEDS.
[2017-04-20] VITALS: BP 179/103
[2017-04-20 04:00] VITALS: BP 187/97
[2017-04-20 07:32] LABS: BASOPHILS 0.3 % (0-2); EOSINOPHILS 2.8 % (0-7); HEMATOCRIT 28.5 % (36.0-48.0); IMMATURE GRANULOCYTES 0.3 % (0-5); LYMPHOCYTES 26.9 % (15-50); MCH 23.5 pg (26.0-34.0); MCHC 31.6 g/dL (31.0-37.0); MCV 74.4 fL (80.0-100.0); MEAN PLATELET VOLUME 9.1 fL (7.4-10.4); MONOCYTES 14.2 % (2-11); NEUTROPHILS 55.5 % (40-80); PLATELET COUNT 548 10x3/uL (130-400); RBC 3.83 10x6/uL (4.00-5.40); WBC 7.9 10x3/uL (4.8-10.8)
--- NOTE | 2017-04-20 07:38 | NUR ---
SLEEPING, NO DISTRESS NOTED, BREATHING EVEN UNLABORED, CALL LIGHT IN REACH, BED LOWEST POSITION, WILL CONINUE TO MONITOR
[2017-04-20 07:54] LABS: ANION GAP 8.2 mmol/L (8-16); CALCIUM 8.4 mg/dL (8.5-10.1); CARBON DIOXIDE 30.2 mmol/L (21.0-32.0); MAGNESIUM - SERUM 1.7 mg/dL (1.8-2.4); POTASSIUM - SERUM 3.4 mmol/L (3.5-5.1)
[2017-04-20 07:55] LABS: CREATININE - SERUM 1.3 mg/dL (0.6-1.3)
[2017-04-20 09:41] VITALS: BP 137/91
--- NOTE | 2017-04-20 11:15 | NUR ---
AWAKE AND ALERT. ORIENTED X3. NO C/O AT THIS TIME. UP PER SELF. REPORTS NO PAIN AT THIS TIME. BILIARY DRAIN PATENT WITH YELLOWISH DRAINAGE. EFRA PATENT X2 WITH SEROUS SANGUINESS DRAINAGE. DENIES NEEDS.
[2017-04-20 12:33] VITALS: BP 170/111
[2017-04-20 17:38] VITALS: BP 161/96
--- NOTE | 2017-04-20 18:23 | NUR ---
PT STATES PHONE GOT PUT IN THE DIRTY LINENS WITH HER BLANKETS, AWAITING EVS TO CALL BACK
--- NOTE | 2017-04-20 19:30 | NUR ---
NOTIFIED BY KHUSHBOO YOST THAT THE PATIENT'S IV WAS LEAKING. NO SWELLING OR PAIN NOTED AT SITE. JASWANT JOSE RESITED THE PATIENT IN THE R FA.
[2017-04-20 20:00] VITALS: BP 150/80
[2017-04-21] VITALS: BP 144/82
[2017-04-21 04:00] VITALS: BP 161/96
[2017-04-21 06:33] LABS: BASOPHILS 0.3 % (0-2); EOSINOPHILS 4.4 % (0-7); HEMATOCRIT 26.6 % (36.0-48.0); HEMOGLOBIN 8.3 g/dL (12-16); IMMATURE GRANULOCYTES 0.3 % (0-5); LYMPHOCYTES 31.4 % (15-50); MCH 23.3 pg (26.0-34.0); MCHC 31.2 g/dL (31.0-37.0); MCV 74.7 fL (80.0-100.0); MEAN PLATELET VOLUME 8.6 fL (7.4-10.4); MONOCYTES 11.5 % (2-11); NEUTROPHILS 52.1 % (40-80); PLATELET COUNT 439 10x3/uL (130-400); RBC 3.56 10x6/uL (4.00-5.40); RDW 16.1 % (11.5-14.5); WBC 7.3 10x3/uL (4.8-10.8)
[2017-04-21 06:50] LABS: ANION GAP 8.7 mmol/L (8-16); CALCIUM 8.4 mg/dL (8.5-10.1); CARBON DIOXIDE 29.7 mmol/L (21.0-32.0); CREATININE - SERUM 1.4 mg/dL (0.6-1.3); MAGNESIUM - SERUM 1.8 mg/dL (1.8-2.4); POTASSIUM - SERUM 3.4 mmol/L (3.5-5.1)
--- NOTE | 2017-04-21 08:00 | NUR ---
PT STATED HER EFRA DRAIN JUST FELL OUT, PLACED GAUZE OVER TOP AND TAPED, BED LOWEST POSITION, CALL LIGHT IN REACH, SON AT BEDSIDE, WILL CONTINUE TO MONITOR
[2017-04-21 09:32] VITALS: BP 144/84
--- NOTE | 2017-04-21 12:15 | NUR ---
PT LAYING IN BED ON LEFT SIDE, VOICES NO CONCERNS OR NEEDS AT THIS TIME. BED IN LOW POSITION AND CALL LIGHT WITHIN REACH. WILL CONTINUE TO MONITOR.
[2017-04-21 12:57] VITALS: BP 183/106
--- NOTE | 2017-04-21 15:04 | OP ---
PATIENT NAME: AFUA SMITH MEDICAL RECORD: [id number] :75 LOCATION:D.[facility] ADMISSION DATE:04/16/17 SURGEON: GARY SONG MD DATE OF OPERATION: 04/18/2017 PREOPERATIVE DIAGNOSIS: Perforated duodenal ulcer. POSTOPERATIVE DIAGNOSES: Perforated duodenal ulcer with extensive intra-abdominal adhesions. PROCEDURES: Laparoscopic lavage with laparoscopic placement of a 24-Bermudian G-tube. SURGEON: Gary Song MD. SAP SPECIALIST: None. BLOOD LOSS: Minimal. ANESTHESIA: General. COMPLICATIONS: None. The risks, possible complications and alternatives to the procedure were explained to the patient. She elects to proceed. The goal here is to Sid patch a duodenal ulcer. It is my belief that the patient's abdominal pain was likely multifactorial and was likely due to 2 different things, gallbladder disease, as well as a duodenal ulcer, which has since perforated. There was a delay in diagnosis as multiple CT scans failed to reveal free air. Once we identified free air, we knew that there had been a leakage of some air and the most likely area was a duodenal ulcer. OPERATIVE FINDINGS: The patient has essentially patched the ulcer herself. Extensive intra-abdominal adhesions were noted. These were all filmy adhesions. We placed a G-tube in the defunctionalized portion of the stomach as the patient has had a gastric bypass. This will help decompress that portion of the stomach and aid in healing of the ulcer. OPERATIVE COURSE: The patient was conveyed to the operating room electively in 04/18/2017. General anesthesia was induced by anesthesia staff. The abdomen was sterilely prepped and draped. A small skin incision was accomplished in the left upper quadrant. This was extended. A 12-mm trocar was inserted here. A 5-mm trocar was inserted just cephalad to the umbilicus. Two 8-mm trocars were placed, one in the left upper quadrant and one in the right upper quadrant. During insertion of the Veress needle and all trocars, there appeared to have been no injury to the bowels, any intraperitoneal or retroperitoneal structures. I went about lysing the adhesions. Most of these, I could just push away with my forceps. I took down the portion of the falciform ligament in the hopes that it will aid in patching of the duodenal ulcer. I lavaged with normal saline. I grasped the anterior portion of the stomach after dissecting through the omentum. Utilizing the Harmonic scalpel, a gastrotomy was accomplished. At the 12-mm trocar site, OPERATIVE REPORT [id number] AFUA SMITH I advanced a 24-Bermudian gastrostomy tube. The tip was advanced into the stomach through the gastrotomy defect. I then inflated the ball. At the 8-mm trocar sites, 19-Bermudian Manav drains were advanced. All the trocars were removed and the abdomen desufflated. The gastrostomy tube was attached to gravity drainage. The flange was sutured to the skin with 2-0 silks. The drainage was sutured to the skin with 2-0 silks. The 5-mm trocar site was closed with a single intracuticular 3-0 Vicryl. TRANSINT:[id number] Voice Confirmation ID: [id number] DOCUMENT ID: [id number] GARY SONG MD at 1504 CC: [id number] DICTATION DATE: 04/18/17 1550 MYSQL DBA: 04/18/17 1935 ADM IN [facility] [address] [place] [address]
--- NOTE | 2017-04-21 17:15 | NUR ---
BP 203/116 P 77 PATIENT WITHOUT S/S OF DISTRESS. REFUSES PRN APRESOLINE STATES IT MAKES HER HR DROP TOO LOW. INFORMED PATIENT OF RISKS OF HIGH BLOOD PRESSURE SHE CONTINUES TO REFUSE.
[2017-04-21 17:16] VITALS: BP 206/112
--- NOTE | 2017-04-21 17:55 | NUR ---
BP 190/86- P 80 , PATIENT CONT. TO REFUSE APRESOLINE. PATIENT STATES THAT IF HER PULSE GOES OVER 100 SHE WOULD TAKE APRESOLINE BUT FEELS THAT IF SHE TAKES IT AT THIS POINT IT WILL BOTTOM HER PULSE OUT AND MAKE HER FEEL AWFUL. INFORMED DAVID BROWN PRIMARY NURSE .
--- NOTE | 2017-04-21 19:00 | NUR ---
PATIENT STATED SHE HAS A STOOL READY TO BE COLLECTED. NOTIFIED KHUSHBOO YOST, HE COLLECTED THE STOOL AND SENT TO LAB. NOTIFIED KILLIAN LIGHT.
--- NOTE | 2017-04-21 19:45 | NUR ---
PT IS SITTING IN BED WITH TEARS IN HER EYES, VERBALIZED THAT SHE IS TIRED OF BEING SICK AND WANTS HER IV OUT AND JUST WANTS TO TAKE MEDS ORALLY. PT VERBALIZED THAT SHE IS STARTING TO GET DEPRESSED AND FEELS IF SHE IS NOT GETTING ANY BETTER AND THAT HER STOMACH FEELS LIKE IT DID WHEN SHE FIRST CAME IN. PT REQUESTED TO BE DISCONNECTED FROM IV AND TO BE PLACED ON PO MEDS, TALKED TO PT AND COMPROMISED ON BEING DISCONNECTED FROM IV SO SHE CAN CLEAN UP AND MAY FEEL BETTER. WILL CHECK PT CHART FOR ANXIETY MEDS. CONTINNUE WITH CARE PLAN
--- NOTE | 2017-04-21 21:00 | NUR ---
PT IS SITTING IN ROOM VISITING WITH FRIENDS, SEEMS TO BE IN BETTER SPIRITS, AGREED TO BE PLACED BACK ON IV FOR NOW UNTIL SHE SEES DOCTORS IN THE MORNING. BED IN LOW POSITION, CALL LIGHT IN REACH
[2017-04-22] VITALS: BP 177/103
[2017-04-22 04:00] VITALS: BP 186/97
[2017-04-22 06:47] LABS: BASOPHILS 0.3 % (0-2); EOSINOPHILS 4.1 % (0-7); HEMATOCRIT 26.6 % (36.0-48.0); HEMOGLOBIN 8.7 g/dL (12-16); IMMATURE GRANULOCYTES 0.2 % (0-5); LYMPHOCYTES 27.2 % (15-50); MCH 24.2 pg (26.0-34.0); MCHC 32.7 g/dL (31.0-37.0); MCV 73.9 fL (80.0-100.0); MEAN PLATELET VOLUME 8.5 fL (7.4-10.4); MONOCYTES 13.3 % (2-11); NEUTROPHILS 54.9 % (40-80); PLATELET COUNT 371 10x3/uL (130-400); RDW 15.7 % (11.5-14.5); WBC 6.6 10x3/uL (4.8-10.8)
[2017-04-22 07:05] LABS: ANION GAP 11.3 mmol/L (8-16); CALCIUM 8.4 mg/dL (8.5-10.1); CREATININE - SERUM 1.2 mg/dL (0.6-1.3); MAGNESIUM - SERUM 1.8 mg/dL (1.8-2.4); POTASSIUM - SERUM 3.3 mmol/L (3.5-5.1)
--- NOTE | 2017-04-22 07:51 | NUR ---
AM ROUNDS - PT IS AWAKE IN BED WATCHING A MOVIE ON HER LAPTOP. SON AT BEDSIDE. IV TO RIGHT ARM, LRT AT 100CC/HR AND DILAUDID HOISTING ENGINEER PILE DRIVING. PT IS ON ROOM AIR. NO NEEDS AT THIS TIME. WILL CONTINUE TO MONITOR
[2017-04-22 09:03] VITALS: BP 153/85
--- NOTE | 2017-04-22 11:16 | NUR ---
PT STATES THAT DR. SONG WANTED A STOOL SAMPLE. NO ORDER SEEN. WILL VERIFY.
[2017-04-22 12:05] VITALS: BP 197/107
--- NOTE | 2017-04-22 12:09 | NUR ---
CALLED TO PT ROOM. GASTROTMY TUBE DRESSING WET-PT STATES WAS NOT IN THE SHOWER-DRESSING WAS WET BUT NOT WITH GREEN LIQ IN GASTROTOMY BAG. SITE CELANED WTIH NO REDDNESS NOTED AT INSERTION SITE. REDRESSED WITH 4X4 AND TAPE. BAG EMPTIED AND RECORDED. CALL LIGHT IN REACH
--- NOTE | 2017-04-22 15:44 | NUR ---
NUTRITION MONITORING & EVAL CHART REVIEWED, PT VISIT. PT REPORTS GOOD INTAKE RECENT MEALS. STATES SHE IS "HAVING A LOT OF DIARRHEA". WILL CONTINUE TO PROVIDE DIET, MONITOR PO INTAKE. RD FOLLOWING
--- NOTE | 2017-04-22 17:23 | NUR ---
PER DR. SONG, SL PT. WILL CONTINUE TO MONITOR
[2017-04-22 17:44] VITALS: BP 205/119
[2017-04-22 23:59] VITALS: BP 194/106
[2017-04-23 04:00] VITALS: BP 196/109
[2017-04-23 05:38] LABS: BASOPHILS 0.1 % (0-2); EOSINOPHILS 3.6 % (0-7); HEMATOCRIT 26.9 % (36.0-48.0); HEMOGLOBIN 8.3 g/dL (12-16); IMMATURE GRANULOCYTES 0.1 % (0-5); MCHC 30.9 g/dL (31.0-37.0); MCV 74.5 fL (80.0-100.0); MEAN PLATELET VOLUME 9.9 fL (7.4-10.4); MONOCYTES 13.8 % (2-11); NEUTROPHILS 48.4 % (40-80); PLATELET COUNT 405 10x3/uL (130-400); RBC 3.61 10x6/uL (4.00-5.40); RDW 15.8 % (11.5-14.5); WBC 7.4 10x3/uL (4.8-10.8)
[2017-04-23 05:51] LABS: ANION GAP 11.5 mmol/L (8-16); CALCIUM 8.6 mg/dL (8.5-10.1); CARBON DIOXIDE 28.3 mmol/L (21.0-32.0); CREATININE - SERUM 1.1 mg/dL (0.6-1.3); MAGNESIUM - SERUM 1.7 mg/dL (1.8-2.4)
[2017-04-23 05:55] LABS: POTASSIUM - SERUM 3.8 mmol/L (3.5-5.1)
[2017-04-23 09:33] VITALS: BP 172/90
--- NOTE | 2017-04-23 11:50 | NUR ---
PT AMBULATING IN THE HALLS. STATED THAT SHE WANTS TO GO HOME. ADVISED HER TO WAIT FOR DR. SONG TO SEE HER. ENCOURAGED HER NOT TO LEAVE WITH OUT BEING DISCHARGED. STATED THAT SHE WILL WAIT TO SPEAK WITH DR. SONG.
[2017-04-23 13:40] VITALS: BP 209/113
[2017-04-23 17:15] VITALS: BP 209/114
--- NOTE | 2017-04-23 17:17 | NUR ---
PT UPSET THAT SHE IS NOT GETTING PO ANTIBIOTICS. SHE REFUSES IV ANTIBIOTICS. THREATENING TO LEAVE WITHOUT PROPER DISCHARGE.
--- NOTE | 2017-04-23 18:36 | NUR ---
PT LEFT HOSPITAL AMA. NEERU AND MYSELF TRIED TO CONVINCE HER THAT SHE NEEDED TO STAY SINCE SHE IS STILL NOT WELL. DR. SONG NOTIFIED THAT PT WANTED TO LEAVE AMA. PT REFUSED TO TAKE HER IV ANTIBIOTICS. SHE ALSO REFUSED TO HAVE PRN IV MEDICATIONS TO HELP LOWER HER BLOOD PRESSURE. SHE STATED THAT THE MEDS WERE NOT WORKING. ALL ATTEMPTS OF CONVINCING HER TO STAY WERE UNSUCCESSFUL. PT SIGNED AMA PAPERS AND LEFT.
== END 2017-04-23 18:30 | disposition left against medical advice (07) | DRG 327 ==
LOC: D.ER 15:07 → D.MS 19:58 → D.WS 19:58 → D.MS 23:48
PROVIDERS: Emergency Medicine; Physician Assistant Medical; Surgery; ADMIT Surgery
PROC: 3E1M38Z Irrigation of Peritoneal Cavity using Irrigating Substance, Percutaneous Approach (ICD-10-PCS; 2017-04-18)
PROC: 0D9640Z Drainage of Stomach with Drainage Device, Percutaneous Endoscopic Approach (ICD-10-PCS; principal; 2017-04-18 12:30)
PROC: 0DNW4ZZ Release Peritoneum, Percutaneous Endoscopic Approach (ICD-10-PCS; 2017-04-18 12:30)
DX: K26.5 Chronic or unspecified duodenal ulcer with perforation (principal); R18.8 Other ascites; E11.9 Type 2 diabetes mellitus without complications; F41.9 Anxiety disorder, unspecified; D63.8 Anemia in other chronic diseases classified elsewhere; K66.0 Peritoneal adhesions (postprocedural) (postinfection)

== ENCOUNTER 2017-04-25 16:09 | Emergency (ER) | payer MEDICARE, MEDICAID ==
[2017-04-17 14:10] VITALS: BMI 30.3
[2017-04-25 19:34] LABS: BASOPHILS 0.2 % (0-2); EOSINOPHILS 3.8 % (0-7); HEMATOCRIT 29.7 % (36.0-48.0); HEMOGLOBIN 9.2 g/dL (12-16); IMMATURE GRANULOCYTES 0.2 % (0-5); LYMPHOCYTES 24.9 % (15-50); MCH 23.1 pg (26.0-34.0); MCV 74.6 fL (80.0-100.0); MEAN PLATELET VOLUME 9.5 fL (7.4-10.4); MONOCYTES 10.3 % (2-11); NEUTROPHILS 60.6 % (40-80); PLATELET COUNT 332 10x3/uL (130-400); RBC 3.98 10x6/uL (4.00-5.40); RDW 15.6 % (11.5-14.5); WBC 10.4 10x3/uL (4.8-10.8)
[2017-04-25 20:05] LABS: ALBUMIN 2.5 g/dL (3.4-5.0); ANION GAP 11.5 mmol/L (8-16); BILIRUBIN - TOTAL 0.3 mg/dL (0.2-1.3); CALCIUM 8.7 mg/dL (8.5-10.1); CARBON DIOXIDE 31.1 mmol/L (21.0-32.0); CREATININE - SERUM 1.6 mg/dL (0.6-1.3); POTASSIUM - SERUM 3.6 mmol/L (3.5-5.1); PROTEIN - SERUM 7.4 g/dL (6.4-8.2)
== END 2017-04-25 21:33 | disposition home or self-care (01) ==
LOC: D.ER 16:09
PROVIDERS: Physician Assistant
DX: R10.13 Epigastric pain (principal); R10.11 Right upper quadrant pain; K56.60 Unspecified intestinal obstruction; E11.9 Type 2 diabetes mellitus without complications; Z79.4 Long term (current) use of insulin; K21.9 Gastro-esophageal reflux disease without esophagitis; I10 Essential (primary) hypertension; R53.83 Other fatigue

== ENCOUNTER 2017-04-26 22:52 | Emergency (ER) | payer MEDICARE, MEDICAID ==
[2017-04-17 14:10] VITALS: BMI 30.3
[2017-04-27 00:18] LABS: BASOPHILS 0.2 % (0-2); EOSINOPHILS 4.7 % (0-7); HEMATOCRIT 29.8 % (36.0-48.0); HEMOGLOBIN 9.2 g/dL (12-16); IMMATURE GRANULOCYTES 0.3 % (0-5); LYMPHOCYTES 27.4 % (15-50); MCH 23.2 pg (26.0-34.0); MCHC 30.9 g/dL (31.0-37.0); MCV 75.1 fL (80.0-100.0); MEAN PLATELET VOLUME 10.2 fL (7.4-10.4); MONOCYTES 13.1 % (2-11); NEUTROPHILS 54.3 % (40-80); PLATELET COUNT 309 10x3/uL (130-400); RBC 3.97 10x6/uL (4.00-5.40); RDW 15.4 % (11.5-14.5); WBC 10.3 10x3/uL (4.8-10.8)
[2017-04-27 00:38] LABS: ALBUMIN 2.7 g/dL (3.4-5.0); ALKALINE PHOSPHATASE 76 U/L (46-116); ALT (SGPT) 15 U/L (10-68); CALC OSMOLALITY 282 mosm/kg (275-300); CALCIUM 9.1 mg/dL (8.5-10.1); CHLORIDE - SERUM 101 mmol/L (98-107); GLUCOSE 145 mg/dL (74-106); POTASSIUM - SERUM 3.4 mmol/L (3.5-5.1); PROTEIN - SERUM 7.9 g/dL (6.4-8.2); SODIUM 140 mmol/L (136-145); eGFR NON AFRICAN AMERICAN 29 mL/min (90-120)
[2017-04-27 00:45] LABS: UREA NITROGEN 16 mg/dL (7-18)
[2017-04-27 00:48] LABS: CHOLESTEROL, TOTAL 124 mg/dL (0-200); CKMB 0.3 U/L (0.0-3.6); CREATINE KINASE 105 UL (21-215); HDL CHOLESTEROL 63 mg/dL (32-96); LDL CHOLESTEROL 37 mg/dL (0-100); LDL-HDL RATIO 0.6 ratio (1.5-3.5); LIPASE 118 U/L (73-393); TRIGLYCERIDE 121 mg/dL (30-200); TROPONIN-I < 0.017 ng/mL (0.000-0.060)
== END 2017-04-27 03:52 | disposition home or self-care (01) ==
LOC: D.ER 22:52
PROVIDERS: Emergency Medicine
DX: R07.9 Chest pain, unspecified (principal)

== ENCOUNTER 2017-04-28 12:08 | Emergency (ER) | payer MEDICARE, MEDICAID ==
[2017-04-17 14:10] VITALS: BMI 30.3
[2017-04-28 13:26] LABS: BASOPHILS 0.2 % (0-2); EOSINOPHILS 4.3 % (0-7); HEMATOCRIT 31.1 % (36.0-48.0); HEMOGLOBIN 9.7 g/dL (12-16); IMMATURE GRANULOCYTES 0.2 % (0-5); LYMPHOCYTES 30.2 % (15-50); MCH 23.3 pg (26.0-34.0); MCHC 31.2 g/dL (31.0-37.0); MCV 74.8 fL (80.0-100.0); MEAN PLATELET VOLUME 10.1 fL (7.4-10.4); MONOCYTES 9.8 % (2-11); NEUTROPHILS 55.3 % (40-80); PLATELET COUNT 308 10x3/uL (130-400); RBC 4.16 10x6/uL (4.00-5.40); RDW 15.1 % (11.5-14.5); WBC 8.5 10x3/uL (4.8-10.8)
[2017-04-28 13:47] LABS: ALBUMIN 2.9 g/dL (3.4-5.0); ANION GAP 12.8 mmol/L (8-16); BILIRUBIN - TOTAL 0.2 mg/dL (0.2-1.3); CALCIUM 9.3 mg/dL (8.5-10.1); CARBON DIOXIDE 30.5 mmol/L (21.0-32.0); POTASSIUM - SERUM 3.3 mmol/L (3.5-5.1)
[2017-04-28 13:48] LABS: CREATININE - SERUM 1.4 mg/dL (0.6-1.3)
[2017-04-28 13:55] LABS: APPEARANCE HAZY (CLEAR); BACTERIA FEW /hpf (NONE SEEN); BILIRUBIN NEGATIVE (NEGATIVE); COLOR YELLOW (YELLOW); EPITHELIAL CELLS 0-5 /hpf (0-5); GLUCOSE 100 mg/dL (NEGATIVE); HYALINE CAST RARE /lpf (NONE SEEN); KETONE SMALL mg/dL (NEGATIVE); LEUKOCYTE ESTERASE 1+ (NEGATIVE); MUCUS <1+ /lpf (NONE SEEN); NITRITE NEGATIVE (NEGATIVE); PROTEIN NEGATIVE (NEGATIVE); UROBILINOGEN NORMAL (NORMAL); WHITE CELLS - URINE 0-5 /hpf (0-5)
== END 2017-04-28 15:07 | disposition home or self-care (01) ==
LOC: D.ER 12:08
PROVIDERS: Emergency Medicine
DX: R11.10 Vomiting, unspecified (principal); R19.7 Diarrhea, unspecified; R10.9 Unspecified abdominal pain; I10 Essential (primary) hypertension; E87.6 Hypokalemia; N17.9 Acute kidney failure, unspecified

== ENCOUNTER → 2017-04-29 | Emergency (ER) | payer MEDICARE, MEDICAID ==
[2017-04-17 14:10] VITALS: BMI 30.3
--- NOTE | ~2017-04-29 | PN ---
PATIENT:AFUA CLARK MEDICAL RECORD: [id number] LOCATION:D.ER ADMISSION DATE: 04/29/17 PROGRESS NOTE DATE OF SERVICE: 04/29/2017 I was called in the Emergency Room to see Mrs. Clark. Her abdomen is tender only around the gastrostomy tube. The gastrostomy tube flushes, drains bilious material. We ordered a CAT scan. Other than for the prior gastric bypass changes and the indwelling G-tube and the defunctionalized portion of the stomach, the CAT scan looked pretty good. There had been a resolution of the fluid collections. She contacted Dr. Bustos who was her bariatric surgeon. He wanted to talk to me. I called him back. His recommendation was that we perform an esophagogastrojejunoscopy on the patient to make sure she does not have a marginal ulcer. We are going to set her up to have it done sometime soon. TRANSINT:[id number] Voice Confirmation ID: [id number] DOCUMENT ID: [id number] GARY SONG MD CC: [id number] DICTATION DATE: 04/29/17 145 WIRE TWISTER: 04/30/17 0441 [facility] [address] [place] [address]
[2017-04-29 09:18] LABS: BASOPHILS 0.2 % (0-2); EOSINOPHILS 3.4 % (0-7); IMMATURE GRANULOCYTES 0.2 % (0-5); LYMPHOCYTES 31.6 % (15-50); MCH 23.3 pg (26.0-34.0); MCHC 31.3 g/dL (31.0-37.0); MCV 74.4 fL (80.0-100.0); MEAN PLATELET VOLUME 10.1 fL (7.4-10.4); NEUTROPHILS 53.6 % (40-80); PLATELET COUNT 347 10x3/uL (130-400); WBC 8.5 10x3/uL (4.8-10.8)
[2017-04-29 09:35] LABS: ALBUMIN 2.9 g/dL (3.4-5.0); ANION GAP 12.9 mmol/L (8-16); BILIRUBIN - TOTAL 0.2 mg/dL (0.2-1.3); CALCIUM 9.5 mg/dL (8.5-10.1); CARBON DIOXIDE 30.6 mmol/L (21.0-32.0); CREATININE - SERUM 1.4 mg/dL (0.6-1.3); POTASSIUM - SERUM 3.5 mmol/L (3.5-5.1); PROTEIN - SERUM 8.3 g/dL (6.4-8.2)
[2017-04-29 10:27] LABS: APPEARANCE SLT CLOUDY (CLEAR); BILIRUBIN NEGATIVE (NEGATIVE); COLOR YELLOW (YELLOW); GLUCOSE 50 mg/dL (NEGATIVE); KETONE NEGATIVE (NEGATIVE); LEUKOCYTE ESTERASE 1+ (NEGATIVE); NITRITE NEGATIVE (NEGATIVE); PROTEIN TRACE mg/dL (NEGATIVE); SPECIFIC GRAVITY 1.015 (1.005-1.020); UROBILINOGEN NORMAL (NORMAL)
[2017-04-29 10:29] LABS: BACTERIA FEW /hpf (NONE SEEN); EPITHELIAL CELLS 0-5 /hpf (0-5); GRANULAR CAST 0-5 /lpf (NONE SEEN); HYALINE CAST 0-5 /lpf (NONE SEEN); MUCUS <1+ /lpf (NONE SEEN); RED CELLS - URINE 0-5 /hpf (0-5)
== END | disposition home or self-care (01) ==
LOC: D.ER 08:03
PROVIDERS: Emergency Medicine
DX: R10.9 Unspecified abdominal pain (principal)

== ENCOUNTER 2017-05-02 10:18 | Day surgery (SDC) | payer MEDICARE, MEDICAID ==
[~2017-05-02] VITALS: Ht 167.6 cm; Wt 79.5 kg
--- NOTE | ~2017-05-02 | OP ---
PATIENT NAME: AFUA SMITH MEDICAL RECORD: [id number] :75 LOCATION:[facility] ADMISSION DATE: SURGEON: GARY SONG MD DATE OF OPERATION: 05/02/2017 PREOPERATIVE DIAGNOSIS: Persistent epigastric and left upper quadrant abdominal pain. POSTOPERATIVE DIAGNOSES: Persistent epigastric and left upper quadrant abdominal pain with marginal ulcer at the gastrojejunal anastomosis. PROCEDURE: Esophagogastrojejunoscopy. SURGEON: Gary Song MD LANDSCAPING MANAGER: None. BLOOD LOSS: Minimal. ANESTHESIA: IV sedation. COMPLICATIONS: None. The risks, possible complications and alternatives to procedure were explained to the patient. She elects to proceed. ENDOSCOPIC COURSE: The patient was conveyed to the endoscopy suite electively on 05/02/2017. IV sedation was induced by the anesthesia staff. A bite block was inserted. A gastroscope was inserted into the mouth. It was advanced easily into the hypopharynx. The esophagus was easily intubated as was the stomach and the jejunum. I went and examined the blind pouch. I was then able to travel down the Cj limb of the jejunum. I did note a marginal ulcer with exudate at the gastrojejunal anastomosis. I did not biopsy this for fear that it would cause increased bleeding. The patient may require further endoscopy in the future. I have ordered a H. pylori antibody test. The endoscope was then withdrawn under direct vision. The patient can be dismissed home on Protonix, which she has been taking 40 mg b.i.d. as well as Misoprostol 200 mcg 4 times a day. I will see her in the office in 2-3 weeks. TRANSINT:[id number] Voice Confirmation ID: [id number] DOCUMENT ID: [id number] CC: Dr. Destin Bustos GARY SONG MD CC: [id number] DICTATION DATE: 05/02/17 1527 DIRECTOR SOCIAL SERVICE: 05/02/172035 [facility] 05/02/[address] [address]
--- NOTE | ~2017-05-02 | HP ---
PATIENT: AFUA SMITH MEDICAL RECORD: [id number] ACCOUNT: [id number] LOCATION:[facility] M : 75 ADMISSION DATE: 05/02/17 HISTORY AND PHYSICAL EXAMINATION CHIEF COMPLAINT: Abdominal pain. HISTORY OF PRESENT ILLNESS: The patient recently underwent cholecystectomy for gallbladder disease. She returned to the Emergency Room several times and CTs initially failed to demonstrate a significant problem. She had several small pockets of fluid, one of which was drained by the interventional radiology department and this was serous fluid and was not infected. She was subsequently found to have a perforated duodenal ulcer. She underwent a laparoscopic lavage with placement of drains and she did not require a Sid patch because essentially her omentum had already patched the duodenal ulcer. I was contacted by Dr. Bustos. We had a pleasant conversation with him. I have informed him of Mrs. Smith recent illnesses. He recommended that I perform an esophagogastrojejunoscopy to rule out a marginal ulcer. The patient is here today to undergo that procedure. PAST MEDICAL AND SURGICAL HISTORY: Diabetes, history gastric bypass, anxiety, cholecystectomy, , tubal ligation and endometrial ablation. ALLERGIES: No known drug allergies. HOME MEDICINES: Last list of home medicines I have for the patient includes Coreg, Phenergan, Zestril, Klonopin as well as hydrocodone. She is also taking a proton pump inhibitor. PHYSICAL EXAMINATION: GENERAL: The patient does not appear acutely ill. She does appear chronically ill. The entire physical examination was performed in the presence of a female nurse. EARS: External ears appear normal. EYES: Extraocular movements are intact. NECK: Trachea is midline. CHEST: No intercostal retractions. PULMONARY: Nonlabored, no stridor. ABDOMEN: Tenderness around the indwelling G-tube, which is in the defunctionalized portion of the stomach. IMPRESSION: Persistent abdominal pain. PLAN: Esophagogastrojejunoscopy. TRANSINT:[id number] Voice Confirmation ID: [id number] DOCUMENT ID: [id number] CC: Dr. Destin Bustos HISTORY AND PHYSICAL [id number] AFUA SMITH GARY SONG MD CC: RAZA VASQUEZ [id number] DICTATION DATE: 05/02/17 1440 FILE CLERK: 05/02/17 1528 [facility] 05/02/17 [facility] [address] [place] [address]
[2017-05-02] MEDS ORDERED: PROTONIX40 MG PO (11:52)
[2017-05-02 11:54] VITALS: Ht 167.6 cm; Wt 79.5 kg
[2017-05-02 12:08] LABS: HEMATOCRIT 31.2 % (36.0-48.0); HEMOGLOBIN 9.8 g/dL (12-16); MCHC 31.4 g/dL (31.0-37.0); MCV 73.2 fL (80.0-100.0); MEAN PLATELET VOLUME 9.9 fL (7.4-10.4); RBC 4.26 10x6/uL (4.00-5.40); RDW 15.1 % (11.5-14.5); WBC 8.4 10x3/uL (4.8-10.8)
[2017-05-02 12:19] LABS: ANION GAP 8.7 mmol/L (8-16); CARBON DIOXIDE 31.3 mmol/L (21.0-32.0); CREATININE - SERUM 1.2 mg/dL (0.6-1.3)
--- NOTE | 2017-05-02 16:22 | NUR ---
1600 IV DC WITH CATHER TIP INTACT
== END 2017-05-02 16:00 | disposition home or self-care (01) ==
LOC: D.OPS 10:18
PROVIDERS: Anesthesiology
DX: K26.5 Chronic or unspecified duodenal ulcer with perforation (principal); K25.9 Gastric ulcer, unspecified as acute or chronic, without hemorrhage or perforation; I25.10 Atherosclerotic heart disease of native coronary artery without angina pectoris; I10 Essential (primary) hypertension; E11.9 Type 2 diabetes mellitus without complications; I20.9 Angina pectoris, unspecified; Z95.5 Presence of coronary angioplasty implant and graft; Z01.812 Encounter for preprocedural laboratory examination

== ENCOUNTER 2017-07-14 12:31 | Emergency (ER) | payer MEDICARE, MEDICAID ==
[2017-05-02 11:54] VITALS: BMI 28.3
[~2017-07-14 12:31] MED LIST changes: +PROTONIX40 MG PO
[2017-07-14 13:08] LABS: BASOPHILS 0.2 % (0-2); EOSINOPHILS 1.2 % (0-7); HEMATOCRIT 32.2 % (36.0-48.0); IMMATURE GRANULOCYTES 0.2 % (0-5); LYMPHOCYTES 48.3 % (15-50); MCH 23.5 pg (26.0-34.0); MCHC 31.1 g/dL (31.0-37.0); MCV 75.8 fL (80.0-100.0); MEAN PLATELET VOLUME 9.6 fL (7.4-10.4); MONOCYTES 6.8 % (2-11); NEUTROPHILS 43.3 % (40-80); RBC 4.25 10x6/uL (4.00-5.40); RDW 13.5 % (11.5-14.5); WBC 5.7 10x3/uL (4.8-10.8)
[2017-07-14 13:10] LABS: PLATELET COUNT 217 10x3/uL (130-400)
[2017-07-14 13:24] LABS: ALBUMIN 3.2 g/dL (3.4-5.0); ANION GAP 11.6 mmol/L (8-16); BILIRUBIN - TOTAL 0.33 mg/dL (0.2-1.3); CALCIUM 8.6 mg/dL (8.5-10.1); CARBON DIOXIDE 28.4 mmol/L (21.0-32.0); PROTEIN - SERUM 6.7 g/dL (6.4-8.2)
[2017-07-14 13:37] LABS: APPEARANCE CLOUDY (CLEAR); BILIRUBIN NEGATIVE (NEGATIVE); COLOR YELLOW (YELLOW); GLUCOSE NEGATIVE (NEGATIVE); KETONE NEGATIVE (NEGATIVE); NITRITE NEGATIVE (NEGATIVE); PROTEIN NEGATIVE (NEGATIVE)
== END 2017-07-14 17:33 | disposition home or self-care (01) ==
LOC: D.ER 12:31
PROVIDERS: Family Medicine
DX: R10.13 Epigastric pain (principal); E11.9 Type 2 diabetes mellitus without complications; Z87.19 Personal history of other diseases of the digestive system; I10 Essential (primary) hypertension

== ENCOUNTER → 2018-02-25 17:53 | Outpatient (CLI) | payer MEDICARE ==
[2017-05-02 11:54] VITALS: BMI 28.3
[~2018-02-25 17:53] MED LIST changes: +MEPERIDINE HCL50 MG PO
== END | disposition home or self-care (01) ==
LOC: D.MRI 02-20 18:00
DX: M25.561 Pain in right knee (principal)

== ENCOUNTER 2018-04-06 08:30 | Day surgery (SDC) | payer MEDICARE ==
[2018-04-03 11:59] LABS: HEMATOCRIT 32.3 % (36.0-48.0); HEMOGLOBIN 10.1 g/dL (12-16); MCH 23.7 pg (26.0-34.0); MCHC 31.3 g/dL (31.0-37.0); MCV 75.8 fL (80.0-100.0); MEAN PLATELET VOLUME 9.1 fL (7.4-10.4); RBC 4.26 10x6/uL (4.00-5.40); RDW 13.5 % (11.5-14.5); WBC 5.7 10x3/uL (4.8-10.8)
[~2018-04-06] VITALS: Ht 165.1 cm; Wt 81.6 kg
--- NOTE | ~2018-04-06 | OP ---
PATIENT NAME: AFUA SMITH MEDICAL RECORD: [id number] :75 LOCATION:[facility] M ADMISSION DATE: SURGEON: ANDI ZARATE MD DATE OF OPERATION: 04/06/2018 PREOPERATIVE DIAGNOSIS: Patellofemoral syndrome of the right knee. POSTOPERATIVE DIAGNOSIS: Patellofemoral syndrome of the right knee. PROCEDURE: Right knee arthroscopy with arthroscopic lateral release. SURGEON: Andi Zarate MD ANESTHESIA: General. INTRAOPERATIVE COMPLICATIONS: None. 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 INDICATIONS: This is a 42-year-old female who had failed physical therapy, nonoperative management, bracing, nonsteroidal anti-inflammatories, and cortisone injection. OPERATIVE SUMMARY IN DETAIL: After obtaining the appropriate preoperative orthopedic surgery consent as well as anesthetic consultation, evaluation and clearance, the patient was brought to the operating room and placed on operating table in supine position. After general laryngeal mask airway was administered, tourniquet was placed on the proximal aspect of the left lower extremity. Left lower extremity was then prepped and draped in routine sterile fashion. Leg was elevated and exsanguinated, tourniquet was inflated to 350 mmHg. Routine inferolateral portal was established followed by superomedial portal and inferomedial portal. Diagnostic arthroscopy revealed the above findings only. The arthroscopy was then set up from the medial side to visualize the entire lateral retinaculum from just below the vastus lateralis. Lateral retinaculum was released through the subcutaneous tissue using the Arthrex hook tip ablator. Having completed this, the knee was insufflated with 30 cc of 0.25% Marcaine with epinephrine and 40 mg of Depo-Medrol. Arthroscopy portals were closed in routine interrupted fashion using 4-0 Prolene. Sterile dressings were applied. The patient was awakened and taken to recovery room in stable condition. All final needle and sponge counts were correct. TRANSINT:[id number] Voice Confirmation ID: [id number] DOCUMENT ID: [id number] ANDI ZARATE MD at 1558 CC: [id number] DICTATION DATE: 04/06/18 1318 SEARCH ENGINE MARKETING SPECIALIST: 04/06/18 1328 [facility] [address] [place] [address]
[~2018-04-06 08:30] MED LIST changes: -MEPERIDINE HCL50 MG PO
[2018-04-06 10:37] VITALS: BP 154/94; Ht 165.1 cm; Wt 81.6 kg
[2018-04-06 10:54] LABS: HCG URINE NEGATIVE (NEGATIVE)
[2018-04-06] MEDS ORDERED: MEPERIDINE HCL50 MG PO (13:14)
== END 2018-04-06 17:50 | disposition home or self-care (01) ==
LOC: D.OPS 08:30 → D.PAN 15:00 → D.OPS 15:00
PROVIDERS: Anesthesiology; Orthopaedic Surgery
DX: M23.51 Chronic instability of knee, right knee (principal)

== ENCOUNTER 2018-04-14 00:28 | Emergency (ER) | payer MEDICARE ==
[~2018-04-14] VITALS: Ht 165.1 cm; Wt 86.2 kg
[~2018-04-14 00:28] MED LIST changes: +MEPERIDINE HCL50 MG PO
[2018-04-14 00:39] VITALS: Ht 165.1 cm; Wt 86.2 kg
[2018-04-14 01:43] LABS: BASOPHILS 0.1 % (0-2); HEMATOCRIT 32.7 % (36.0-48.0); HEMOGLOBIN 10.2 g/dL (12-16); IMMATURE GRANULOCYTES 0.2 % (0-5); LYMPHOCYTES 15.6 % (15-50); MCH 23.6 pg (26.0-34.0); MCHC 31.2 g/dL (31.0-37.0); MCV 75.5 fL (80.0-100.0); MEAN PLATELET VOLUME 9.8 fL (7.4-10.4); MONOCYTES 9.4 % (2-11); NEUTROPHILS 73.7 % (40-80); PLATELET COUNT 228 10x3/uL (130-400); RBC 4.33 10x6/uL (4.00-5.40); RDW 13.2 % (11.5-14.5); WBC 9.6 10x3/uL (4.8-10.8)
[2018-04-14 01:57] LABS: ALBUMIN 3.3 g/dL (3.4-5.0); ANION GAP 7.8 mmol/L (8-16); BILIRUBIN - TOTAL 0.33 mg/dL (0.2-1.3); CALCIUM 8.5 mg/dL (8.5-10.1); CARBON DIOXIDE 33.2 mmol/L (21.0-32.0); CREATININE - SERUM 0.9 mg/dL (0.6-1.3); PROTEIN - SERUM 7.1 g/dL (6.4-8.2)
[2018-04-14 02:30] VITALS: BP 130/56
== END 2018-04-14 02:35 | disposition home or self-care (01) ==
LOC: D.ER 00:28
PROVIDERS: Family Medicine
DX: S80.01XA Contusion of right knee, initial encounter (principal); W18.30XA Fall on same level, unspecified, initial encounter; Y93.89 Activity, other specified; Y92.019 Unspecified place in single-family (private) house as the place of occurrence of the external cause; E11.9 Type 2 diabetes mellitus without complications; I10 Essential (primary) hypertension; K21.9 Gastro-esophageal reflux disease without esophagitis

== ENCOUNTER 2018-04-19 09:47 | Emergency (ER) | payer MEDICARE ==
[~2018-04-19] VITALS: Ht 165.1 cm; Wt 86.4 kg
[2018-04-19 09:52] VITALS: Ht 165.1 cm; Wt 86.4 kg
[2018-04-19 12:01] VITALS: BP 132/66
[2018-04-19 13:22] LABS: MACROPHAGES BF 6 %; NEUT - BF 86 %
== END 2018-04-19 12:02 | disposition home or self-care (01) ==
LOC: D.ER 09:47
PROVIDERS: Emergency Medicine
DX: G89.18 Other acute postprocedural pain (principal); E11.9 Type 2 diabetes mellitus without complications; I10 Essential (primary) hypertension

== ENCOUNTER 2018-04-30 08:18 | Inpatient (IN) | payer MEDICARE ==
[~2018-04-30] VITALS: Ht 167.6 cm; Wt 85.0 kg
[2018-04-30 08:59] LABS: BASOPHILS 0.2 % (0-2); EOSINOPHILS 1.5 % (0-7); HEMATOCRIT 27.4 % (36.0-48.0); HEMOGLOBIN 8.5 g/dL (12-16); IMMATURE GRANULOCYTES 0.2 % (0-5); LYMPHOCYTES 26.5 % (15-50); MCH 23.2 pg (26.0-34.0); MCV 74.9 fL (80.0-100.0); MEAN PLATELET VOLUME 8.4 fL (7.4-10.4); MONOCYTES 11.6 % (2-11); RBC 3.66 10x6/uL (4.00-5.40); RDW 13.1 % (11.5-14.5)
[2018-04-30 09:00] LABS: PLATELET COUNT 394 10x3/uL (130-400)
[2018-04-30 09:17] LABS: ALBUMIN 2.6 g/dL (3.4-5.0); ALKALINE PHOSPHATASE 69 U/L (46-116); ALT (SGPT) 19 U/L (10-68); BILIRUBIN - TOTAL 0.23 mg/dL (0.2-1.3); CALC OSMOLALITY 279 mosm/kg (275-300); CALCIUM 8.4 mg/dL (8.5-10.1); CARBON DIOXIDE 31.3 mmol/L (21.0-32.0); CHLORIDE - SERUM 103 mmol/L (98-107); CREATININE - SERUM 0.8 mg/dL (0.6-1.3); GLUCOSE 115 mg/dL (74-106); POTASSIUM - SERUM 3.7 mmol/L (3.5-5.1); PROTEIN - SERUM 7.4 g/dL (6.4-8.2); SODIUM 140 mmol/L (136-145); UREA NITROGEN 13 mg/dL (7-18); eGFR NON AFRICAN AMERICAN 83 mL/min (90-120)
[2018-04-30 12:00] VITALS: BP 195/101
[2018-04-30 12:10] LABS: INR 1.13 (0.85-1.17); PROTIME 14.1 SECONDS (11.6-15.0)
[2018-04-30 15:38] LABS: NEUT - BF 95 %
[2018-04-30 22:25] VITALS: BP 189/112; BMI 30.2
[2018-05-01] VITALS (13 sets, daily range): BP systolic 150–210; BP diastolic 86–116; Ht 167.6 cm; Wt 85.0 kg
[2018-05-01 04:40] LABS: BASOPHILS 0.1 % (0-2); EOSINOPHILS 1.4 % (0-7); HEMATOCRIT 28.9 % (36.0-48.0); HEMOGLOBIN 8.9 g/dL (12-16); IMMATURE GRANULOCYTES 0.1 % (0-5); LYMPHOCYTES 31.4 % (15-50); MCH 23.1 pg (26.0-34.0); MCHC 30.8 g/dL (31.0-37.0); MCV 75.1 fL (80.0-100.0); MEAN PLATELET VOLUME 9.1 fL (7.4-10.4); MONOCYTES 11.9 % (2-11); NEUTROPHILS 55.1 % (40-80); RBC 3.85 10x6/uL (4.00-5.40); RDW 13.1 % (11.5-14.5); WBC 7.1 10x3/uL (4.8-10.8)
[2018-05-01 04:44] LABS: PLATELET COUNT 481 10x3/uL (130-400)
[2018-05-01 05:04] LABS: ALBUMIN 2.6 g/dL (3.4-5.0); ALKALINE PHOSPHATASE 65 U/L (46-116); ALT (SGPT) 22 U/L (10-68); BILIRUBIN - TOTAL 0.22 mg/dL (0.2-1.3); CALC OSMOLALITY 275 mosm/kg (275-300); CALCIUM 8.3 mg/dL (8.5-10.1); CARBON DIOXIDE 32.9 mmol/L (21.0-32.0); CHLORIDE - SERUM 101 mmol/L (98-107); CREATININE - SERUM 0.7 mg/dL (0.6-1.3); GLUCOSE 109 mg/dL (74-106); POTASSIUM - SERUM 3.9 mmol/L (3.5-5.1); PROTEIN - SERUM 7.5 g/dL (6.4-8.2); SODIUM 138 mmol/L (136-145); UREA NITROGEN 10 mg/dL (7-18); eGFR NON AFRICAN AMERICAN > 90 mL/min (90-120)
[2018-05-01 13:45] LABS: % SATURATION 15 % (15-55); IRON 22 ug/dl (35-150); TOTAL IRON BIND CAPACITY 143 ug/dl (260-445); UNSAT IRON BIND CAPACITY 121 ug/dl (150-375)
[2018-05-01 20:53] LABS: BASOPHILS 0.1 % (0-2); EOSINOPHILS 0.3 % (0-7); HEMATOCRIT 30.3 % (36.0-48.0); HEMOGLOBIN 9.4 g/dL (12-16); IMMATURE GRANULOCYTES 0.2 % (0-5); LYMPHOCYTES 14.3 % (15-50); MCH 23.2 pg (26.0-34.0); MCV 74.8 fL (80.0-100.0); MEAN PLATELET VOLUME 8.9 fL (7.4-10.4); NEUTROPHILS 78.1 % (40-80); PLATELET COUNT 435 10x3/uL (130-400); RBC 4.05 10x6/uL (4.00-5.40); RDW 12.9 % (11.5-14.5)
[2018-05-01 20:55] LABS: WBC 9.1 10x3/uL (4.8-10.8)
[2018-05-01 21:02] LABS: CALCIUM 8.5 mg/dL (8.5-10.1); CARBON DIOXIDE 30.6 mmol/L (21.0-32.0); CHLORIDE - SERUM 99 mmol/L (98-107); CREATININE - SERUM 0.8 mg/dL (0.6-1.3); POTASSIUM - SERUM 3.5 mmol/L (3.5-5.1); SODIUM 137 mmol/L (136-145); eGFR NON AFRICAN AMERICAN 83 mL/min (90-120)
[2018-05-01 21:18] LABS: CALC OSMOLALITY 275 mosm/kg (275-300); GLUCOSE 174 mg/dL (74-106); UREA NITROGEN 7 mg/dL (7-18)
[2018-05-02] VITALS: BP 186/102
[2018-05-02 04:00] VITALS: BP 189/111
[2018-05-02 05:44] LABS: BASOPHILS 0.1 % (0-2); HEMATOCRIT 27.4 % (36.0-48.0); HEMOGLOBIN 8.4 g/dL (12-16); IMMATURE GRANULOCYTES 0.1 % (0-5); LYMPHOCYTES 22.1 % (15-50); MCH 22.8 pg (26.0-34.0); MCHC 30.7 g/dL (31.0-37.0); MCV 74.5 fL (80.0-100.0); MEAN PLATELET VOLUME 8.5 fL (7.4-10.4); MONOCYTES 13.5 % (2-11); NEUTROPHILS 63.2 % (40-80); PLATELET COUNT 386 10x3/uL (130-400); RBC 3.68 10x6/uL (4.00-5.40); WBC 6.9 10x3/uL (4.8-10.8)
[2018-05-02 06:07] LABS: CALC OSMOLALITY 270 mosm/kg (275-300); CALCIUM 8.1 mg/dL (8.5-10.1); CARBON DIOXIDE 31.6 mmol/L (21.0-32.0); CHLORIDE - SERUM 102 mmol/L (98-107); CREATININE - SERUM 0.7 mg/dL (0.6-1.3); POTASSIUM - SERUM 3.9 mmol/L (3.5-5.1); SODIUM 136 mmol/L (136-145); UREA NITROGEN 7 mg/dL (7-18); eGFR NON AFRICAN AMERICAN > 90 mL/min (90-120)
[2018-05-02 06:10] LABS: GLUCOSE 114 mg/dL (74-106)
[2018-05-02 08:18] LABS: FOLATE (FOLIC ACID) - SERUM 17.9 ng/mL (>3.0)
[2018-05-02 08:32] VITALS: BP 194/109
[2018-05-02 11:00] VITALS: BP 167/90
[2018-05-02 16:00] VITALS: BP 175/100
[2018-05-02 20:00] VITALS: BP 183/80
[2018-05-03 04:00] VITALS: BP 169/100
[2018-05-03 05:27] LABS: BASOPHILS 0.1 % (0-2); EOSINOPHILS 1.7 % (0-7); HEMATOCRIT 25.3 % (36.0-48.0); HEMOGLOBIN 7.8 g/dL (12-16); IMMATURE GRANULOCYTES 0.1 % (0-5); LYMPHOCYTES 26.9 % (15-50); MCH 22.8 pg (26.0-34.0); MCHC 30.8 g/dL (31.0-37.0); MEAN PLATELET VOLUME 8.6 fL (7.4-10.4); MONOCYTES 12.1 % (2-11); NEUTROPHILS 59.1 % (40-80); PLATELET COUNT 394 10x3/uL (130-400); RBC 3.42 10x6/uL (4.00-5.40); RDW 12.9 % (11.5-14.5)
[2018-05-03 05:41] LABS: CALC OSMOLALITY 270 mosm/kg (275-300); CALCIUM 8.3 mg/dL (8.5-10.1); CARBON DIOXIDE 32.9 mmol/L (21.0-32.0); CHLORIDE - SERUM 102 mmol/L (98-107); CREATININE - SERUM 0.7 mg/dL (0.6-1.3); GLUCOSE 102 mg/dL (74-106); POTASSIUM - SERUM 3.8 mmol/L (3.5-5.1); SODIUM 136 mmol/L (136-145); eGFR NON AFRICAN AMERICAN > 90 mL/min (90-120)
[2018-05-03 06:00] LABS: UREA NITROGEN 9 mg/dL (7-18)
[2018-05-03 10:22] VITALS: BP 158/81
[2018-05-03 16:42] VITALS: BP 124/73
[2018-05-03 20:33] VITALS: BP 139/73
[2018-05-04 03:00] VITALS: BP 151/89
[2018-05-04 04:42] LABS: BASOPHILS 0.3 % (0-2); EOSINOPHILS 2.9 % (0-7); HEMATOCRIT 24.6 % (36.0-48.0); IMMATURE GRANULOCYTES 0.2 % (0-5); MCH 22.9 pg (26.0-34.0); MCHC 30.5 g/dL (31.0-37.0); MCV 75.2 fL (80.0-100.0); MEAN PLATELET VOLUME 9.3 fL (7.4-10.4); MONOCYTES 9.6 % (2-11); PLATELET COUNT 394 10x3/uL (130-400); RBC 3.27 10x6/uL (4.00-5.40); RDW 13.2 % (11.5-14.5); WBC 5.9 10x3/uL (4.8-10.8)
[2018-05-04 04:43] LABS: HEMOGLOBIN 7.5 g/dL (12-16)
[2018-05-04 04:50] LABS: CALC OSMOLALITY 280 mosm/kg (275-300); CARBON DIOXIDE 32.5 mmol/L (21.0-32.0); CHLORIDE - SERUM 103 mmol/L (98-107); CREATININE - SERUM 0.7 mg/dL (0.6-1.3); GLUCOSE 117 mg/dL (74-106); POTASSIUM - SERUM 3.9 mmol/L (3.5-5.1); SODIUM 141 mmol/L (136-145); UREA NITROGEN 10 mg/dL (7-18); eGFR NON AFRICAN AMERICAN > 90 mL/min (90-120)
[2018-05-04 09:04] VITALS: BP 151/87
[2018-05-04 13:13] VITALS: BP 165/96
[2018-05-04 20:00] VITALS: BP 143/87
[2018-05-05 03:25] VITALS: BP 178/98
[2018-05-05 04:35] LABS: BASOPHILS 0.2 % (0-2); EOSINOPHILS 2.7 % (0-7); HEMATOCRIT 25.4 % (36.0-48.0); HEMOGLOBIN 7.7 g/dL (12-16); IMMATURE GRANULOCYTES 0.2 % (0-5); LYMPHOCYTES 31.8 % (15-50); MCH 22.8 pg (26.0-34.0); MCHC 30.3 g/dL (31.0-37.0); MCV 75.1 fL (80.0-100.0); MEAN PLATELET VOLUME 9.1 fL (7.4-10.4); MONOCYTES 9.1 % (2-11); PLATELET COUNT 410 10x3/uL (130-400); RBC 3.38 10x6/uL (4.00-5.40); RDW 13.1 % (11.5-14.5); WBC 5.9 10x3/uL (4.8-10.8)
[2018-05-05 04:57] LABS: CALC OSMOLALITY 278 mosm/kg (275-300); CALCIUM 8.5 mg/dL (8.5-10.1); CARBON DIOXIDE 32.2 mmol/L (21.0-32.0); CHLORIDE - SERUM 102 mmol/L (98-107); CREATININE - SERUM 0.8 mg/dL (0.6-1.3); GLUCOSE 160 mg/dL (74-106); POTASSIUM - SERUM 3.8 mmol/L (3.5-5.1); SODIUM 139 mmol/L (136-145); UREA NITROGEN 8 mg/dL (7-18); eGFR NON AFRICAN AMERICAN 83 mL/min (90-120)
[2018-05-05 09:49] VITALS: BP 154/97
[2018-05-05] MEDS ORDERED: AUGMENTIN 875-11 TAB PO (10:22)
[2018-05-05] MEDS ORDERED: COLACE100 MG PO (10:43)
[2018-05-05] MEDS ORDERED: FLORAJEN3 CAPS460 MG PO (10:44)
[2018-05-05 12:45] VITALS: BP 104/72
== END 2018-05-05 14:02 | disposition home health service (06) | DRG 488 ==
LOC: D.ER 08:18 → D.MS 17:46 → D.EDHOLD 17:46 → D.MS 19:00
PROVIDERS: Family Medicine; Internal Medicine Nephrology; Orthopaedic Surgery
PROC: 0S9C3ZZ Drainage of Right Knee Joint, Percutaneous Approach (ICD-10-PCS; principal; 2018-04-30)
PROC: 0SBC4ZZ Excision of Right Knee Joint, Percutaneous Endoscopic Approach (ICD-10-PCS; 2018-05-01 14:45)
PROC: 0S9C40Z Drainage of Right Knee Joint with Drainage Device, Percutaneous Endoscopic Approach (ICD-10-PCS; 2018-05-01 14:45)
DX: M65.861 Other synovitis and tenosynovitis, right lower leg (principal); M00.9 Pyogenic arthritis, unspecified; E11.65 Type 2 diabetes mellitus with hyperglycemia; I10 Essential (primary) hypertension; F41.9 Anxiety disorder, unspecified; D50.9 Iron deficiency anemia, unspecified; I73.9 Peripheral vascular disease, unspecified

== ENCOUNTER 2018-05-24 08:53 | Emergency (ER) | payer MEDICARE ==
[~2018-05-24] VITALS: Ht 167.6 cm; Wt 81.8 kg
[~2018-05-24 08:53] MED LIST changes: +AUGMENTIN 875-11 TAB PO; +COLACE100 MG PO; +FLORAJEN3 CAPS460 MG PO
[2018-05-24 08:57] VITALS: Ht 167.6 cm; Wt 81.8 kg
[2018-05-24 09:23] LABS: BASOPHILS 0.2 % (0-2); EOSINOPHILS 4.1 % (0-7); HEMATOCRIT 29.5 % (36.0-48.0); IMMATURE GRANULOCYTES 0.2 % (0-5); LYMPHOCYTES 31.5 % (15-50); MCH 22.7 pg (26.0-34.0); MCHC 30.5 g/dL (31.0-37.0); MCV 74.5 fL (80.0-100.0); MEAN PLATELET VOLUME 9.6 fL (7.4-10.4); RBC 3.96 10x6/uL (4.00-5.40); RDW 13.9 % (11.5-14.5); WBC 5.4 10x3/uL (4.8-10.8)
[2018-05-24 09:27] LABS: PLATELET COUNT 278 10x3/uL (130-400)
[2018-05-24 09:30] LABS: APPEARANCE CLOUDY (CLEAR); BILIRUBIN NEGATIVE (NEGATIVE); COLOR YELLOW (YELLOW); GLUCOSE NEGATIVE (NEGATIVE); KETONE NEGATIVE (NEGATIVE); NITRITE NEGATIVE (NEGATIVE); PROTEIN 1+ mg/dL (NEGATIVE); SPECIFIC GRAVITY 1.025 (1.005-1.020)
[2018-05-24 09:32] LABS: APTT 28.3 SECONDS (22.8-39.4); INR 1.11 (0.85-1.17); PROTIME 13.9 SECONDS (11.6-15.0)
[2018-05-24 09:33] LABS: HCG SERUM NEGATIVE (NEGATIVE)
[2018-05-24 09:33] LABS: AMORPHOUS SEDIMENT <1+ /lpf (NONE SEEN); BACTERIA MODERATE /hpf (NONE SEEN); MUCUS <1+ /lpf (NONE SEEN)
[2018-05-24 09:38] LABS: ALBUMIN 3.1 g/dL (3.4-5.0); ANION GAP 11.6 mmol/L (8-16); BILIRUBIN - TOTAL 0.28 mg/dL (0.2-1.3); CALCIUM 9.1 mg/dL (8.5-10.1); CARBON DIOXIDE 30.1 mmol/L (21.0-32.0); POTASSIUM - SERUM 3.7 mmol/L (3.5-5.1); PROTEIN - SERUM 7.4 g/dL (6.4-8.2)
[2018-05-24] MEDS ORDERED: PHENERGAN6.25 MG/5 PO (10:53)
[2018-05-24] MEDS ORDERED: HYDROCODON-ACE1 EAC7 PO (10:53)
[2018-05-24] MEDS ORDERED: MACROBID100 MG PO (10:56)
[2018-05-24 15:45] VITALS: BP 112/68
== END 2018-05-24 15:47 | disposition home or self-care (01) ==
LOC: D.ER 08:53
PROVIDERS: Emergency Medicine
DX: N39.0 Urinary tract infection, site not specified (principal); Z87.19 Personal history of other diseases of the digestive system; D50.9 Iron deficiency anemia, unspecified; R11.2 Nausea with vomiting, unspecified; E11.9 Type 2 diabetes mellitus without complications; I10 Essential (primary) hypertension

== ENCOUNTER 2018-06-03 10:19 | Outpatient (CLI) | payer MEDICARE, MEDICAID ==
[~2018-06-03] VITALS: Ht 167.6 cm; Wt 81.8 kg
[~2018-06-03 10:19] MED LIST changes: +HYDROCODON-ACE1 EAC7 PO; +MACROBID100 MG PO; +PHENERGAN6.25 MG/5 PO
[2018-06-03 10:51] VITALS: BP 159/85; Ht 167.6 cm; Wt 81.8 kg
== END 2018-06-03 14:01 ==
LOC: D.OPS 10:19
DX: D50.9 Iron deficiency anemia, unspecified (principal)

== ENCOUNTER 2018-08-02 16:21 | Emergency (ER) | payer MEDICARE, MEDICAID ==
[~2018-08-02] VITALS: Ht 167.6 cm; Wt 81.8 kg
[2018-08-02 16:29] VITALS: Ht 167.6 cm; Wt 81.8 kg
[2018-08-02 16:55] LABS: APPEARANCE CLEAR (CLEAR); COLOR YELLOW (YELLOW); NITRITE NEGATIVE (NEGATIVE); SPECIFIC GRAVITY 1.025 (1.005-1.020)
[2018-08-02 16:56] LABS: BILIRUBIN NEGATIVE (NEGATIVE); GLUCOSE NEGATIVE (NEGATIVE); KETONE NEGATIVE (NEGATIVE); PROTEIN TRACE mg/dL (NEGATIVE); UROBILINOGEN NORMAL (NORMAL)
[2018-08-02 17:11] LABS: BASOPHILS 0.2 % (0-2); EOSINOPHILS 2.8 % (0-7); HEMOGLOBIN 9.9 g/dL (12-16); IMMATURE GRANULOCYTES 0.2 % (0-5); LYMPHOCYTES 44.9 % (15-50); MCH 23.6 pg (26.0-34.0); MCHC 30.9 g/dL (31.0-37.0); MCV 76.4 fL (80.0-100.0); MEAN PLATELET VOLUME 9.7 fL (7.4-10.4); MONOCYTES 7.1 % (2-11); NEUTROPHILS 44.8 % (40-80); PLATELET COUNT 252 10x3/uL (130-400); RBC 4.19 10x6/uL (4.00-5.40); RDW 13.6 % (11.5-14.5)
[2018-08-02 17:36] LABS: ALBUMIN 3.5 g/dL (3.4-5.0); ALKALINE PHOSPHATASE 59 U/L (46-116); ALT (SGPT) 21 U/L (10-68); AMYLASE - SERUM 46 U/L (25-115); BILIRUBIN - TOTAL 0.19 mg/dL (0.2-1.3); CALC OSMOLALITY 282 mosm/kg (275-300); CALCIUM 8.3 mg/dL (8.5-10.1); CARBON DIOXIDE 26.7 mmol/L (21.0-32.0); CHLORIDE - SERUM 105 mmol/L (98-107); CREATININE - SERUM 0.8 mg/dL (0.6-1.3); GLUCOSE 96 mg/dL (74-106); LIPASE 87 U/L (73-393); POTASSIUM - SERUM 3.7 mmol/L (3.5-5.1); SODIUM 141 mmol/L (136-145); UREA NITROGEN 19 mg/dL (7-18); eGFR NON AFRICAN AMERICAN 83 mL/min (90-120)
[2018-08-02 19:00] VITALS: BP 164/90
[2018-08-02] MEDS ORDERED: ZOFRAN ODT4 MG/UDTAB PO (20:01)
[2018-08-02] MEDS ORDERED: LOMOTIL 2.5-0.1 EAC1 PO (20:01)
== END 2018-08-02 20:10 | disposition home or self-care (01) ==
LOC: D.ER 16:21
PROVIDERS: Family Medicine
DX: A08.4 Viral intestinal infection, unspecified (principal); R51 Headache; E11.9 Type 2 diabetes mellitus without complications; I10 Essential (primary) hypertension

== ENCOUNTER 2018-11-04 18:30 | Emergency (ER) | payer MEDICARE, MEDICAID ==
[~2018-11-04] VITALS: Ht 167.6 cm; Wt 88.6 kg
[~2018-11-04 18:30] MED LIST changes: +LOMOTIL 2.5-0.1 EAC1 PO; +ZOFRAN ODT4 MG/UDTAB PO
[2018-11-04 18:33] VITALS: Ht 167.6 cm; Wt 88.6 kg
[2018-11-04 19:13] LABS: BASOPHILS 0.2 % (0-2); EOSINOPHILS 1.9 % (0-7); HEMATOCRIT 31.8 % (36.0-48.0); HEMOGLOBIN 9.9 g/dL (12-16); IMMATURE GRANULOCYTES 0.2 % (0-5); LYMPHOCYTES 42.5 % (15-50); MCH 23.6 pg (26.0-34.0); MCHC 31.1 g/dL (31.0-37.0); MCV 75.7 fL (80.0-100.0); MONOCYTES 9.3 % (2-11); NEUTROPHILS 45.9 % (40-80); PLATELET COUNT 246 10x3/uL (130-400); RDW 13.6 % (11.5-14.5); WBC 6.2 10x3/uL (4.8-10.8)
[2018-11-04 19:24] LABS: APTT 23.9 SECONDS (22.8-39.4); INR 0.97 (0.85-1.17); PROTIME 12.4 SECONDS (11.6-15.0)
[2018-11-04 19:30] LABS: ALBUMIN 2.6 g/dL (3.4-5.0); ANION GAP 8.6 mmol/L (8-16); BILIRUBIN - TOTAL 0.13 mg/dL (0.2-1.3); CALCIUM 7.8 mg/dL (8.5-10.1); CARBON DIOXIDE 32.5 mmol/L (21.0-32.0); CREATININE - SERUM 0.9 mg/dL (0.6-1.3); POTASSIUM - SERUM 4.1 mmol/L (3.5-5.1); PROTEIN - SERUM 5.4 g/dL (6.4-8.2)
[2018-11-04 19:56] LABS: APPEARANCE CLEAR (CLEAR); BILIRUBIN NEGATIVE (NEGATIVE); COLOR YELLOW (YELLOW); GLUCOSE NEGATIVE (NEGATIVE); KETONE NEGATIVE (NEGATIVE); NITRITE NEGATIVE (NEGATIVE); PROTEIN NEGATIVE (NEGATIVE); UROBILINOGEN NORMAL (NORMAL)
[2018-11-04] MEDS ORDERED: CARAFATE1 G PO (21:32)
[2018-11-04] MEDS ORDERED: PROTONIX40 MG PO (21:32)
[2018-11-04 21:49] VITALS: BP 132/73
== END 2018-11-04 21:49 | disposition home or self-care (01) ==
LOC: D.ER 18:30
PROVIDERS: Family Medicine
DX: K29.70 Gastritis, unspecified, without bleeding (principal); Z87.11 Personal history of peptic ulcer disease; D50.9 Iron deficiency anemia, unspecified

== ENCOUNTER 2018-11-11 20:57 | Emergency (ER) | payer MEDICARE, MEDICAID ==
[2018-11-04 18:33] VITALS: BMI 31.5
[~2018-11-11 20:57] MED LIST changes: +CARAFATE1 G PO
== END 2018-11-11 21:09 | disposition home or self-care (01) ==
LOC: D.ER 20:57
DX: Z04.1 Encounter for examination and observation following transport accident (principal)

== ENCOUNTER 2018-12-11 08:44 | Emergency (ER) | payer MEDICARE, MEDICAID ==
[~2018-12-11] VITALS: Ht 167.6 cm; Wt 86.4 kg
[2018-12-11 08:48] VITALS: BP 178/103; Ht 167.6 cm; Wt 86.4 kg
[2018-12-11] MEDS ORDERED: CYCLOBENZAPRINE10 MG PO (09:33)
== END 2018-12-11 09:55 | disposition home or self-care (01) ==
LOC: D.ER 08:44
DX: S13.4XXA Sprain of ligaments of cervical spine, initial encounter (principal); V43.52XA Car driver injured in collision with other type car in traffic accident, initial encounter; Y93.89 Activity, other specified; Y92.410 Unspecified street and highway as the place of occurrence of the external cause; M19.90 Unspecified osteoarthritis, unspecified site

== ENCOUNTER 2019-02-01 17:48 | Emergency (ER) | payer MEDICARE, MEDICAID ==
[~2019-02-01 17:48] MED LIST changes: +CYCLOBENZAPRINE10 MG PO
== END 2019-02-01 19:30 | disposition left against medical advice (07) ==
LOC: D.ER 17:48
DX: R42 Dizziness and giddiness (principal)

== ENCOUNTER 2019-03-02 19:38 | Emergency (ER) | payer MEDICARE, MEDICAID ==
[~2019-03-02] VITALS: Ht 167.6 cm; Wt 86.4 kg
[2019-03-02 19:55] VITALS: Ht 167.6 cm; Wt 86.4 kg
[2019-03-02] MEDS ORDERED: SKELAXIN800 MG PO (20:49)
[2019-03-02] MEDS ORDERED: NAPROSYN500 MG PO (20:49)
[2019-03-02 21:14] VITALS: BP 141/81
== END 2019-03-02 21:15 | disposition home or self-care (01) ==
LOC: D.ER 19:38
DX: S16.1XXA Strain of muscle, fascia and tendon at neck level, initial encounter (principal); V49.40XA Driver injured in collision with unspecified motor vehicles in traffic accident, initial encounter; Y93.89 Activity, other specified; Y92.410 Unspecified street and highway as the place of occurrence of the external cause

== ENCOUNTER 2019-03-16 20:22 | Emergency (ER) | payer MEDICARE, MEDICAID ==
[~2019-03-16] VITALS: Ht 167.6 cm; Wt 86.4 kg
[~2019-03-16 20:22] MED LIST changes: +NAPROSYN500 MG PO; +SKELAXIN800 MG PO
[2019-03-16 20:34] VITALS: Ht 167.6 cm; Wt 86.4 kg
[2019-03-16 21:06] LABS: BASOPHILS 0.2 % (0-2); EOSINOPHILS 1.8 % (0-7); HEMATOCRIT 32.4 % (36.0-48.0); HEMOGLOBIN 10.1 g/dL (12-16); LYMPHOCYTES 42.5 % (15-50); MCH 23.5 pg (26.0-34.0); MCHC 31.2 g/dL (31.0-37.0); MCV 75.3 fL (80.0-100.0); NEUTROPHILS 46.5 % (40-80); PLATELET COUNT 225 10x3/uL (130-400); RDW 13.3 % (11.5-14.5); WBC 4.5 10x3/uL (4.8-10.8)
[2019-03-16 21:15] LABS: APPEARANCE CLEAR (CLEAR); BILIRUBIN NEGATIVE (NEGATIVE); COLOR YELLOW (YELLOW); GLUCOSE NEGATIVE (NEGATIVE); KETONE NEGATIVE (NEGATIVE); NITRITE NEGATIVE (NEGATIVE); PROTEIN TRACE mg/dL (NEGATIVE); SPECIFIC GRAVITY 1.025 (1.005-1.020); UROBILINOGEN NORMAL (NORMAL)
[2019-03-16 21:16] LABS: BACTERIA MODERATE /hpf (NONE SEEN); EPITHELIAL CELLS 0-5 /hpf (0-5); RED CELLS - URINE 0-5 /hpf (0-5); WHITE CELLS - URINE 0-5 /hpf (0-5)
[2019-03-16 21:38] LABS: ALBUMIN 3.5 g/dL (3.4-5.0); ALKALINE PHOSPHATASE 67 U/L (46-116); ALT (SGPT) 24 U/L (10-68); BILIRUBIN - TOTAL 0.26 mg/dL (0.2-1.3); CALCIUM 8.4 mg/dL (8.5-10.1); CARBON DIOXIDE 31.9 mmol/L (21.0-32.0); CHLORIDE - SERUM 105 mmol/L (98-107); CREATININE - SERUM 1.1 mg/dL (0.6-1.3); POTASSIUM - SERUM 3.6 mmol/L (3.5-5.1); PROTEIN - SERUM 7.2 g/dL (6.4-8.2); SODIUM 141 mmol/L (136-145); UREA NITROGEN 17 mg/dL (7-18); eGFR NON AFRICAN AMERICAN 57 mL/min (90-120)
[2019-03-16 21:39] LABS: AMYLASE - SERUM 51 U/L (25-115); LIPASE 71 U/L (73-393)
[2019-03-16 21:40] LABS: CALC OSMOLALITY 280 mosm/kg (275-300); GLUCOSE 64 mg/dL (74-106); TROPONIN-I < 0.017 ng/mL (0.000-0.060)
[2019-03-16 21:44] LABS: HCG SERUM NEGATIVE (NEGATIVE)
[2019-03-16] MEDS ORDERED: CARAFATE1 G PO (22:53)
[2019-03-16] MEDS ORDERED: ZOFRAN4 MG PO (22:53)
[2019-03-16 23:08] VITALS: BP 125/81
== END 2019-03-16 23:18 | disposition home or self-care (01) ==
LOC: D.ER 20:22
PROVIDERS: Family Medicine
DX: K52.9 Noninfective gastroenteritis and colitis, unspecified (principal); E11.649 Type 2 diabetes mellitus with hypoglycemia without coma

== ENCOUNTER → 2019-05-07 13:01 | Outpatient (CLI) | payer MEDICARE, MEDICAID ==
[2019-03-16 20:34] VITALS: BMI 30.7
[~2019-05-07 13:01] MED LIST changes: +ZOFRAN4 MG PO
[2019-05-07 13:18] LABS: BASOPHILS 0.2 % (0-2); EOSINOPHILS 1.4 % (0-7); HEMOGLOBIN 9.7 g/dL (12-16); LYMPHOCYTES 27.3 % (15-50); MCH 23.5 pg (26.0-34.0); MCHC 31.3 g/dL (31.0-37.0); MCV 75.1 fL (80.0-100.0); MEAN PLATELET VOLUME 9.4 fL (7.4-10.4); MONOCYTES 10.6 % (2-11); NEUTROPHILS 60.5 % (40-80); PLATELET COUNT 206 10x3/uL (130-400); RBC 4.13 10x6/uL (4.00-5.40); RDW 13.3 % (11.5-14.5); WBC 5.7 10x3/uL (4.8-10.8)
== END | disposition home or self-care (01) ==
LOC: D.LAB 13:01
PROVIDERS: ATTEND Internal Medicine Gastroenterology
DX: K25.9 Gastric ulcer, unspecified as acute or chronic, without hemorrhage or perforation (principal)

== ENCOUNTER 2019-07-18 11:48 | Emergency (ER) | payer MEDICARE, MEDICAID ==
[2019-07-18 11:54] VITALS: Ht 167.6 cm
[2019-07-18] MEDS ORDERED: DICLOFENAC SODI50 MG PO (13:04)
[2019-07-18 13:34] VITALS: BP 148/86
== END 2019-07-18 13:36 | disposition home or self-care (01) ==
LOC: D.ER 11:48
DX: M54.2 Cervicalgia (principal); I10 Essential (primary) hypertension; M54.9 Dorsalgia, unspecified; K21.9 Gastro-esophageal reflux disease without esophagitis

== ENCOUNTER 2020-03-31 18:20 | Emergency (ER) | payer MEDICARE, MEDICAID ==
[~2020-03-31] VITALS: Ht 167.6 cm; Wt 81.8 kg
[~2020-03-31 18:20] MED LIST changes: +DICLOFENAC SODI50 MG PO
[2020-03-31 18:27] VITALS: Ht 167.6 cm; Wt 81.8 kg
[2020-03-31 18:56] LABS: BASOPHILS 0.1 % (0-2); EOSINOPHILS 2.9 % (0-7); HEMOGLOBIN 10.6 g/dL (12-16); IMMATURE GRANULOCYTES 0.1 % (0-5); MCH 23.3 pg (26.0-34.0); MCHC 30.3 g/dL (31.0-37.0); MCV 76.9 fL (80.0-100.0); MEAN PLATELET VOLUME 9.4 fL (7.4-10.4); MONOCYTES 6.4 % (2-11); NEUTROPHILS 59.5 % (40-80); PLATELET COUNT 239 10x3/uL (130-400); RBC 4.55 10x6/uL (4.00-5.40); RDW 13.3 % (11.5-14.5); WBC 7.3 10x3/uL (4.8-10.8)
[2020-03-31 18:57] LABS: BILIRUBIN NEGATIVE (NEGATIVE); GLUCOSE NEGATIVE (NEGATIVE); KETONE NEGATIVE (NEGATIVE); NITRITE NEGATIVE (NEGATIVE); UROBILINOGEN NORMAL (NORMAL)
[2020-03-31 19:04] LABS: CALC OSMOLALITY 279 mosm/kg (275-300); CARBON DIOXIDE 31.6 mmol/L (21.0-32.0); CHLORIDE - SERUM 106 mmol/L (98-107); POTASSIUM - SERUM 3.8 mmol/L (3.5-5.1); SODIUM 140 mmol/L (136-145); UREA NITROGEN 13 mg/dL (7-18); eGFR NON AFRICAN AMERICAN 64 mL/min (90-120)
[2020-03-31 19:07] LABS: GLUCOSE 121 mg/dL (74-106)
[2020-03-31 19:13] LABS: ALBUMIN 3.5 g/dL (3.4-5.0); ALKALINE PHOSPHATASE 60 U/L (30-120); ALT (SGPT) 22 U/L (10-68); AMYLASE - SERUM 69 U/L (25-115); BILIRUBIN - TOTAL 0.26 mg/dL (0.2-1.3); LIPASE 60 U/L (73-393); TROPONIN-I < 0.017 ng/mL (0.000-0.060)
[2020-03-31] MEDS ORDERED: ZOFRAN ODT4 MG/UDTAB PO (19:34)
[2020-03-31] MEDS ORDERED: LEVSIN/ANASP0.125 MG PO (19:34)
[2020-03-31 20:32] VITALS: BP 162/89
== END 2020-03-31 20:32 | disposition home or self-care (01) ==
LOC: D.ER 18:20
PROVIDERS: Family Medicine
DX: R10.9 Unspecified abdominal pain (principal); K59.00 Constipation, unspecified; I10 Essential (primary) hypertension; K21.9 Gastro-esophageal reflux disease without esophagitis; R42 Dizziness and giddiness

== ENCOUNTER 2021-01-09 16:48 | Emergency (ER) | payer MEDICARE, MEDICAID ==
[~2021-01-09] VITALS: Ht 167.6 cm; Wt 90.9 kg
[~2021-01-09 16:48] MED LIST changes: +LEVSIN/ANASP0.125 MG PO
[2021-01-09 16:55] VITALS: BP 136/84; Ht 167.6 cm; Wt 90.9 kg
[2021-01-09 17:32] LABS: BASOPHILS 0.2 % (0-2); EOSINOPHILS 2.3 % (0-7); HEMATOCRIT 35.1 % (36.0-48.0); HEMOGLOBIN 10.7 g/dL (12-16); IMMATURE GRANULOCYTES 0.2 % (0-5); LYMPHOCYTE ABS# 2.32 10x3/uL (1.18-3.74); LYMPHOCYTES 41.6 % (15-50); MCH 23.3 pg (26.0-34.0); MCHC 30.5 g/dL (31.0-37.0); MCV 76.3 fL (80.0-100.0); MEAN PLATELET VOLUME 10.3 fL (7.4-10.4); MONOCYTES 9.9 % (2-11); NEUTROPHIL ABS# 2.56 10x3/uL (1.56-6.13); NEUTROPHILS 45.8 % (40-80); PLATELET COUNT 239 10x3/uL (130-400); RDW 13.1 % (11.5-14.5); WBC 5.6 10x3/uL (4.8-10.8)
[2021-01-09 17:39] LABS: INR 1.11 (0.85-1.17); PROTIME 13.3 SECONDS (11.6-15.0)
[2021-01-09 17:40] LABS: CALC OSMOLALITY 284 mosm/kg (275-300); CARBON DIOXIDE 30.7 mmol/L (21.0-32.0); CHLORIDE - SERUM 105 mmol/L (98-107); GLUCOSE 86 mg/dL (74-106); POTASSIUM - SERUM 3.6 mmol/L (3.5-5.1); SODIUM 142 mmol/L (136-145); UREA NITROGEN 21 mg/dL (7-18); eGFR NON AFRICAN AMERICAN 63 mL/min (90-120)
[2021-01-09 18:04] LABS: ALBUMIN 3.5 g/dL (3.4-5.0); ALKALINE PHOSPHATASE 57 U/L (30-120); ALT (SGPT) 24 U/L (10-68); BILIRUBIN - TOTAL 0.29 mg/dL (0.2-1.3); CKMB 0.8 U/L (0.0-3.6); CREATINE KINASE 90 UL (21-215); MAGNESIUM - SERUM 2.2 mg/dL (1.8-2.4); PROTEIN - SERUM 7.3 g/dL (6.4-8.2)
[2021-01-09 18:11] LABS: TROPONIN-I < 0.017 ng/mL (0.000-0.060)
== END 2021-01-09 18:33 | disposition home or self-care (01) ==
LOC: D.ER 16:48
PROVIDERS: Family Medicine
DX: R53.81 Other malaise (principal); R53.83 Other fatigue; R07.9 Chest pain, unspecified; I10 Essential (primary) hypertension